=== PATIENT | male | born 1945 | race Caucasian/White ===

== ENCOUNTER 2022-11-30 15:35 | Outpatient (REF) | payer MEDICARE, BC, SELFPAY ==
[2022-11-30 19:35] LABS: Urine Cytology See Pathology rpt
== END 2022-11-30 15:36 | disposition home or self-care (01) ==
LOC: HO.LAB 15:35
PROVIDERS: Visit Provider Urology
DX: R31.29 Other microscopic hematuria (principal); N20.0 Calculus of kidney; Z13.9 Encounter for screening, unspecified
CPT/HCPCS: 88112; 99202

== ENCOUNTER 2022-11-30 15:35 | Outpatient (AMB) | payer MEDICARE, BC, SELFPAY ==
--- NOTE | 2022-11-30 15:47 | A.OFFVIS_ITS ---
Intake Intake Visit Reasons: Hematuria- 2nd opinion Intake Note: New Patient is present for hematuria 2nd opinion Antibiotic Allergy: NKDA Blood Thinner: None [facility]acy: [facility] Allergies No Known Allergies Allergy (Verified 11/30/22 15:50) HPI HPI Comments History of Present Illness Details Rayo is a pleasant male. He is a patient of Dr. Callaway. He seen for the following urologic conditions - nephrolithiasis Accompanied by her sister Recent episode in June Associated hematuria for 3 days which slowly resolved Discussion today regarding follow-up They would prefer to follow-up with PCP. Recommend repeat ultrasound in 6 months for stability He will call if has further symptoms Nephrolithiasis Episode June 2022 Prior episode approximately 2000 Discussed fluid intake Imaging - 07/22 renal ultrasound small stone right side, question 5 mm stone left side, prostate volume 50 cc [facility] Medical History (Updated 11/30/22 @ 16:16 by Brian Ramirez MD) Benign essential hypertension Chronic kidney disease, stage 3b Diabetes mellitus Gout History of kidney stones Hyperlipidemia Iritis OA (osteoarthritis) Sensorineural hearing loss Review of Systems Const Denies chills and Denies fever(s) Card Reports no additional complaints and Denies syncope Resp Denies cough GI Denies abdominal pain and Denies heartburn Reports as per HPI and Denies change in libido Neuro Denies syncope Psych Denies change in libido Endo Denies change in libido Physical Exam Const General: cooperative, healthy appearing, comfortable and no acute distress Orientation/consciousness: patient oriented x3 HEENT Face and sinus: Yes normal facial exam Mouth: moist mucous membranes Neck Neck: Yes normal visual inspection, Yes full ROM and Yes trachea midline Chest Chest palpation & inspection: normal inspection of the chest Resp Effort & Inspection: normal respiratory effort, able to speak in complete sentences and no respiratory distress GI Inspection: Yes normal to inspection Back/Spine/Pelvis Cervical Spine: normal cervical lordosis Thoracic/Lumbar Spine: thoracic and lumbar spine normal to inspection Skin General skin exam: no rashes or lesions noted Neuro General: patient oriented x3, gait normal, tone normal and moves all extremities Extrem General: Yes normal to inspection and Yes capillary refill normal Results AMB Urinalysis, Automated UA Leukoctes 0 Rudi/uL Last Edit by KRISHAN Bridges on 11/30/22 16:01 UA Nitrite Negative Last Edit by KRISHAN Bridges on 11/30/22 16:01 UA Urobilinogen 0.2 mg/dL Last Edit by Gloria Peña, RMA on 11/30/22 16:0 1 UA Protein 30 mg/dL Last Edit by Gloria Peña, RMA on 11/30/22 16:01 UA pH 5.5 Last Edit by Gloria Peña, RMA on 11/30/22 16:01 UA Blood 10 Azeem/uL Last Edit by Gloria Peña, RMA on 11/30/22 16:01 UA Specific [place] 1.030 Last Edit by Gloria Peña, RMA on 11/30/22 16: 01 UA Ketone Negative Last Edit by Gloria Peña, RMA on 11/30/22 16:01 UA Bilirubin 0 mg/dL Last Edit by Gloria Peña, RMA on 11/30/22 16:01 UA Glucose 0 mg/dL Last Edit by Gloria Peña, RMA on 11/30/22 16:01 Results Reviewed Results Reviewed: Laboratory Last Values Urine pH (Auto) 5.5 11/30/22 15:57 Specific [place] (Auto) 1.030 11/30/22 15:57 Urine Protein (Auto) 30 mg/dL 11/30/22 15:57 Glucose (UA)(Auto) 0 mg/dL 11/30/22 15:57 Urine Ketones (Auto) Negative 11/30/22 15:57 Urine Blood (Auto) 10 Azeem/uL 11/30/22 15:57 Urine Nitrite (Auto) Negative 11/30/22 15:57 Urine Bilirubin (Auto) 0 mg/dL 11/30/22 15:57 Urine Urobilinogen (Auto) 0.2 mg/dL 11/30/22 15:57 Leukocyte Esterase (Auto) 0 Rudi/uL 11/30/22 15:57 Assessment & Plan Assessment & Plan (1) Nephrolithiasis: Code(s): N20.0 - Calculus of kidney Plan Will follow-up with PCP Orders: Orders Urine Cytology Today R31.29 - Other microscopic hematuria AMB Urinalysis Automated Today Z13.9 - Encounter for screening, unspecified Patient Instructions: Imaging studies, laboratory and physical exam results were discussed and reviewed in detail. No major barriers to patient understanding were identified. An opportunity to ask questions regarding the treatment plan was provided. All questions were answered. The patient expressed understanding and agreement with the above treatment plan. The patient is aware they should contact our office by phone for worsening of their current condition or the appearance of new urologic symptoms. Compliance is encouraged with any medications and followup testing that is ordered. It is a privilege to participate in the urologic care of your patient. If you have any questions or concerns regarding treatment for the above conditions, or other urologic issues, please do not hesitate to contact me. The office telephone contact is [phone]. This note is constructed using voice recognition software. While every effort has been made to ensure accuracy curator horticultural museum errors may have been included. Yours sincerely, Dr Brian Ramirez MD, [facility] - Urology Providers of Expert, Compassionate Care for the Genitourinary System Coding Level of Care Code New Pt Level 3 (56169) Diagnoses Nephrolithiasis N20.0
== END 2022-11-30 16:13 | disposition home or self-care (01) ==
PROVIDERS: Visit Provider Urology
DX: N20.0 Calculus of kidney (principal)
CPT/HCPCS: 99203

== ENCOUNTER 2024-09-22 15:09 | Inpatient (IN) | payer MEDICARE, BC, SELFPAY ==
[2024-09-22] VITALS (10 sets, daily range): BP systolic 128–176; BP diastolic 64–96; PULSE 109–136; RESP 16–23; TEMP 36.6–37.4; O2SAT 94–99; BMI 34.6
--- NOTE | ~2024-09-22 | XR_ITS ---
CLINICAL HISTORY: pain, recent tap 4 view left knee Comparison: None Findings: Bones intact. No dislocations. Severe degenerative changes of the knee with joint space narrowing of the medial compartment and osteophytes. Large joint effusion. No radiopaque foreign body. IMPRESSION: No radiographic evidence of acute fracture. Severe degenerative change of the knee and large joint effusion. This document has been electronically signed by: Az Berg MD on 09/22/2024 17:36:24
--- NOTE | ~2024-09-22 | CT_ITS ---
CLINICAL HISTORY: fall, injury CT cervical spine without contrast Comparison: None Findings: Normal vertebral body alignment. Multilevel degenerative change. No acute fractures or dislocations. No acute findings on limited view of the intracranial contents. No cervical fluid collections or masses. Lung apices are clear. IMPRESSION: No acute findings. This document has been electronically signed by: Az Berg MD on 09/22/2024 17:58:56
--- NOTE | ~2024-09-22 | CT_ITS ---
CLINICAL HISTORY: fall, injury CT Brain without contrast Comparison: None FINDINGS: Cortical sulci: There is diffuse prominence of the cortical sulci compatible with age-related atrophy. Ventricles: Normal for age Brain parenchyma: There is patchy lucency throughout the deep white matter indicating chronic microvascular leukomalacia. Extra axial spaces: Normal Posterior Fossa: Normal Extracranial soft tissues: Normal Additional abnormality: None IMPRESSION: Age-related atrophy with chronic microvascular leukomalacia. No hemorrhage, mass effect, or acute findings identified. This document has been electronically signed by: Az Berg MD on 09/22/2024 18:03:56
--- NOTE | ~2024-09-22 | XR_ITS ---
CLINICAL HISTORY: weakness fall 1 view chest x-ray Comparison: None Findings: The lungs are clear. Heart size is normal. No acute fracture. IMPRESSION: 1. No acute findings. This document has been electronically signed by: Az Berg MD on 09/22/2024 17:39:16
--- NOTE | 2024-09-22 15:31 | ED_ITS ---
HPI - General Adult General Chief complaint: Extremity Injury, Lower Stated complaint: L knee pain, ?sepsis Time Seen by Provider: 09/22/24 15:31 Source: patient and EMS Mode of arrival: EMS Limitations: no limitations History of Present Illness ED Provider: Abbey Kenney PA-C HPI narrative: Patient is a 78 year old assigned male at with a history of atrial fib on Eliquis, DM, arthritis, gout, chronic renal disease, HTN, and latent TB presenting to the emergency department today with left knee pain, fall, and weakness. Patient states that 4 days ago his knee doctor drained 40ml from his left knee for what they suspected was a gout flare. Patient states that today, his legs gave out and he fell - causing him to lay on the floor for hours. Patient states that he cannot bend his left knee secondary to pain. Patient denies any dizziness, lightheadedness, abdominal pain, nausea, vomiting, fever, chills, blurry vision, double vision, loss of vision, chest pain, difficulty breathing, shortness of breath, back pain, night sweats, pain with urination, increased urinary frequency, increased urinary urgency, blood in his urine or stool, syncope or a near syncopal episode, bowel incontinence, bladder incontinence, or any other complaints at this time. Relieving factors: none Exacerbating factors: none Associated symptoms: weakness Treatments prior to arrival: none Related Data Home Medications ?Medication ?Instructions ?Recorded ?Confirmed aspirin 81 mg tablet,delayed 81 mg PO DAILY 11/30/22 release (Adult Aspirin Regimen) fexofenadine 180 mg tablet 180 mg PO DAILY 11/30/22 lifitegrast 5 % eye drops in a 1 drp ophthalmic (eye) BID 11/30/22 dropperette (Xiidra) losartan 100 mg tablet 100 mg PO DAILY 11/30/22 metformin 500 mg tablet 500 mg PO DAILY 11/30/22 potassium citrate 99 mg capsule mg PO 11/30/22 simvastatin 20 mg tablet 20 mg PO DAILY 11/30/22 Allergies Allergy/AdvReac Type Severity Reaction Status Date / Time No Known Allergies Allergy Verified 09/22/24 15:20 Review of Systems 2 Constitutional: Constitutional: Reports no additional constitutional complaints, Denies chills, Denies fever(s), Denies night sweats and Reports weakness Eyes: Eyes: Reports no additional eye complaints, Denies blurry vision, Denies change in vision, Denies diplopia, Denies eye discharge, Denies loss of vision and Denies eye pain ENT: Denies dizziness Cardiovascular: Cardiovascular: Reports no additional cardiovascular complaints, Denies chest pain, Denies lightheadedness, Denies Loss of Consciousness and Denies dyspnea Respiratory: Respiratory: Reports no additional respiratory complaints and Denies dyspnea Gastrointestinal: Gastrointestinal: Reports no additional gastrointestinal complaints, Denies abdominal pain, Denies melena, Denies hematochezia, Denies change in bowel habits and Denies change in stool character Genitourinary: Genitourinary: Reports no additional male genitourinary complaints, Denies hematuria, Denies oliguria, Denies difficulty urinating, Denies dysuria, Denies urinary frequency, Denies urinary hesitancy, Denies urinary incontinence and Denies urinary urgency Musculoskeletal: Musculoskeletal: Reports no additional musculoskeletal complaints, Denies numbness and Denies tingling Comments: left knee swelling left knee pain Neurologic: Denies dizziness, Denies loss of vision, Denies numbness, Denies tingling and Reports weakness Psychiatric: Psychiatric: Reports no additional psychiatric complaints Endocrine: Endocrine: Reports no additional endocrine complaints Hematologic/Lymphatic: Hematologic/Lymphatic: Reports no additional hematologic/lymphatic complaints Allergic/Immunologic: Allergic/Immunologic: Reports no additional allergic/immunologic complaints PMF Past Medical History Attestation statement: The following information was validated with the patient. Source: old records reviewed and nursing notes reviewed Medical History Hyperlipidemia Gout History of kidney stones Diabetes mellitus Benign essential hypertension OA (osteoarthritis) Iritis Chronic kidney disease, stage 3b Sensorineural hearing loss Social History Social History Patient Tobacco Use Status: Never used Tobacco Smoked in Last 30 Days: No Use of substances other than those prescribed or required for medical reasons: No Advance Directives: No Advance Directives Information Provided: No Do you have a plan to hurt others: No Plan Nutrition Risks: No Nutritional Risk Physical Exam ED Vital Signs: Vital Signs - 24 hr 09/22/24 15:19 09/22/24 15:42 09/22/24 16:12 Temperature 97.9 F 98.3 F Pulse Rate 132 H 132 H 121 H Respiratory Rate 20 16 Blood Pressure 158/85 H 158/85 H 138/72 Pulse Oximetry 98 97 Oxygen Delivery Method Room Air Room Air 09/22/24 17:05 09/22/24 17:38 09/22/24 17:53 Temperature 98.4 F Pulse Rate 122 H 113 H 110 H Respiratory Rate 18 23 H 23 H Blood Pressure 140/65 H 133/67 130/64 Pulse Oximetry 98 94 96 Oxygen Delivery Method Room Air Room Air Room Air 09/22/24 18:10 Temperature Pulse Rate 109 H Respiratory Rate 18 Blood Pressure 144/72 H Pulse Oximetry 99 Oxygen Delivery Method Room Air BMI result Body Mass Index 34.6 Const General: cooperative, no acute distress, alert and awake Nutritional Appearance: well nourished Orientation/consciousness: patient oriented x3 HENMT Head: Yes normal to inspection and Yes atraumatic Ears: hearing grossly normal bilaterally and external ears normal General nose exam: Normal external nose present, no nasal discharge noted and no epistaxis Face and sinus: Yes normal facial exam, No abrasion and No laceration Mouth: Normal oral and palatal mucosa present, no drooling and no muffled voice Eyes General: appearance normal, both eyes and all related structures Periorbital: periorbital findings normal Eyelids: Yes eyelids normal Conjunctivae: conjunctivae normal Pupils: Equal, round and reactive pupils present EOM: EOMs intact bilaterally Neck Neck: Yes normal visual inspection, Yes full ROM and Yes no lymphadenopathy Resp Effort & Inspection: normal respiratory effort and able to speak in complete sentences Cardio Rate: tachycardic Rhythm: abnormal rhythm irregularly irregular Neuro General: patient oriented x3, moves all extremities and CN's II-XI intact bilaterally Cranial nerves: Yes Equal, round and reactive pupils present Cognition (Neuro): normal cognition Extrem Other: significantly swollen left knee pain with ROM of the left knee left knee warmth General: Yes capillary refill normal Psych Appearance: grossly normal Mental Status: mental status grossly normal Affect: normal affect Attitude: cooperative Thought process: Normal thought process present Thought content: Normal thought content present Insight: Good insight present (Psych) Medications Administered Generic Name Dose Route Start Last Admin Trade Name Freq PRN Reason Stop Dose Admin Prednisone 40 mg 09/22/24 18:45 09/22/24 18:59 Prednisone 20 Mg Tablet PO 40 mg DAILY YONNY Administration Discontinued Medications Generic Name Dose Route Start Last Admin Trade Name Freq PRN Reason Stop Dose Admin Diltiazem HCl 180 mg 05/24/25 15:37 09/22/24 15:42 Diltiazem Hcl 60 Mg Tablet PO 09/22/24 15:38 180 mg ONCE ONE Administration Protocol Vancomycin HCl 1,000 mg/ 270 mls @ 270 mls/hr 09/22/24 15:31 09/22/24 17:52 Sodium Chloride IV 09/22/24 16:30 Infused POSTOP ONE Infusion Piperacillin Sod/Tazobactam 50 mls @ 100 mls/hr 09/22/24 15:31 09/22/24 16:40 Sod 3.375 gm/ Sodium Chloride IV 09/22/24 16:00 Infused ONCE ONE Infusion Medical Decision Making Medical Decision Making MDM Narrative: Patient is a 78 year old assigned male at with a history of atrial fib on Eliquis, DM, arthritis, gout, chronic renal disease, HTN, and latent TB presenting to the emergency department today with left knee pain, fall, and weakness. Patient's physical exam was as noted in the physical exam portion of this note. Patient's blood work showed WBC 16.8 with a left shift of 89.1, ESR 83, CRP 32.93, total CK 379. Patient's urine showed no evidence of infection. Patient's EKG showed sinus tachycardia. Patient's left x-ray showed OA and large joint effusion. Patient's chest x-ray showed no acute process. Patient's CT head and c-spine showed no acute process. I was suspicious of a septic left knee joint at 1531. Patient was given IV Zosyn and Vancomycin. I spoke with the orthopedic team who stated this could still be a gout flare with a hemarthrosis rather than a septic joint and at this time they did not recommended tapping the joint. I spoke with the medicine team who agreed to admission. I explained my physical exam findings as well as all test results to the patient. I answered all questions asked by the patient. Patient verbalized agreement and understanding with this treatment plan and admission. Differential Diagnosis Differential Diagnoses: The differential diagnosis associated with the presentation includes Fall Weakness Gout flare Septic left knee Admission/Observation Consideration of admission/observation: Escalation of care including admission/observation considered Patient admitted as noted in the MDM Rationale portion of this note. Consult Healthcare Provider Management of the patient was discussed with: Hospitalist (spoke with the hospitalist team as noted in the MDM Rationale portion of this note. ) and Underwriting Specialist (spoke with the orthopedic team as noted in the MDM Rationale portion of this note. ) Lab Data [facility] Lab Attestation statement: I reviewed the patient's lab results. My interpretation of these results are in the MDM Rationale portion of this note. 09/22/24 15:57 09/22/24 15:57 Labs: Lab Results 09/22/24 Range/Units 15:57 WBC 16.8 H (4.8-10.8) X10*3/uL RBC 4.41 L (4.60-5.80) X10*6/uL Hgb 14.1 (14.0-18.0) g/dl Hct 40.1 L (42.0-52.0) % MCV 90.9 (80.0-98.0) fL MCH 32.0 (27.0-33.0) pg MCHC 35.2 (31.0-36.0) g/dl RDW 13.3 (11.0-16.0) % Plt Count 352 (160-400) X10*3/uL MPV 10.3 (9.4-12.4) fL Immature Gran % (Auto) 0.5 H (0.0-0.4) % Neut % (Auto) 89.1 H (45-73) % Lymph % (Auto) 3.5 L (20-40) % [place] % (Auto) 6.7 (2-11) % Eos % (Auto) 0.0 (0-4) % Baso % (Auto) 0.2 (0-2) % Lymph # (Auto) 0.6 L (1.2-4.9) X10*3/uL [place] # (Auto) 1.1 (0.1-1.2) X10*3/uL Eos # (Auto) 0.0 (0.0-0.4) X10*3/uL Baso # (Auto) 0.0 (0.0-0.2) X10*3/uL Abs Immat Gran (auto) 0.08 H (0.00-0.03) X10*3/uL Absolute Neuts (auto) 15.0 H (2.0-8.3) x10*3/uL Absolute Nucleated RBC 0.000 (0.0-0.012) X10*3/uL Nucleated RBC % (auto) 0.0 (0.0-0.2) /100WBC ESR 83 H (0-15) MM/HR PT 18.8 H (10.9-12.4) SEC INR 1.6 H (0.9-1.1) Sodium 136 (135-145) mmol/L Potassium 4.5 (3.3-5.1) mmol/L Chloride 99 (96-108) mmol/L Carbon Dioxide 24 (22-29) mmol/L Anion Gap 18 (12-20) BUN 30 H (9-16) mg/dL Creatinine 1.33 (0.5-1.4) mg/dL Estim Creat Clear Calc 58.5 Estimated GFR 52 Random Glucose 208 H (60-115) mg/dL Lactic Acid 1.8 (0.5-2.0) mmol/L Uric Acid 4.2 (3.4-7.0) mg/dL Calcium 10.2 (8.4-10.2) mg/dL Magnesium 2.0 (1.6-2.6) mg/dL Total Bilirubin 1.7 H (0.0-1.0) mg/dL AST 50 H (5-37) U/L ALT 41 H (0-40) U/L Alkaline Phosphatase 96 (39-117) U/L Total Creatine Kinase 379 H (38-174) U/L C-Reactive Protein 32.93 H (< or = 0.50) mg/dL Total Protein 8.0 (6.5-8.0) g/dL Albumin 4.1 (3.5-5.0) g/dL Influenza Type A (PCR) NEGATIVE (Negative) Influenza Type B (PCR) NEGATIVE (Negative) RSV RNA Qual (PCR) NEGATIVE (Negative) SARS-CoV-2 RNA (RT-PCR) NEGATIVE (Negative) Independent Interpretation I performed an independent interpretation of an: EKG, Plain X-Ray (chest and left knee) and CT Scan (head and c-spine) Interpretation: My interpretation is in agreement with the radiologist's impression of these imaging studies. L Report Number: [id number]: Total DLP = 1466.95 mGy-cm CLINICAL HISTORY: fall, injury CT Brain without contrast Comparison: None FINDINGS: Cortical sulci: There is diffuse prominence of the cortical sulci compatible with age-related atrophy. Ventricles: Normal for age Brain parenchyma: There is patchy lucency throughout the deep white matter indicating chronic microvascular leukomalacia. Extra axial spaces: Normal Posterior Fossa: Normal Extracranial soft tissues: Normal Additional abnormality: None IMPRESSION: Age-related atrophy with chronic microvascular leukomalacia. No hemorrhage, mass effect, or acute findings identified. This document has been electronically signed by: Az Berg MD on 09/22/2024 18:03:56 Dictated By: Az Berg MD Signed By: Electronically signed by Az Berg MD 09/22/24 1804 Report Number: [id number]: Total DLP = 494.23 mGy-cm CLINICAL HISTORY: fall, injury CT cervical spine without contrast Comparison: None Findings: Normal vertebral body alignment. Multilevel degenerative change. No acute fractures or dislocations. No acute findings on limited view of the intracranial contents. No cervical fluid collections or masses. Lung apices are clear. IMPRESSION: No acute findings. This document has been electronically signed by: Az Berg MD on 09/22/2024 17:58:56 Dictated By: Az Berg MD Signed By: Electronically signed by Az Berg MD 09/22/24 1759 CLINICAL HISTORY: weakness fall 1 view chest x-ray Comparison: None Findings: The lungs are clear. Heart size is normal. No acute fracture. IMPRESSION: 1. No acute findings. This document has been electronically signed by: Az Berg MD on 09/22/2024 17:39:16 Dictated By: Az Berg MD Signed By: Electronically signed by Az eBrg MD 09/22/24 1740 CLINICAL HISTORY: pain, recent tap 4 view left knee Comparison: None Findings: Bones intact. No dislocations. Severe degenerative changes of the knee with joint space narrowing of the medial compartment and osteophytes. Large joint effusion. No radiopaque foreign body. IMPRESSION: No radiographic evidence of acute fracture. Severe degenerative change of the knee and large joint effusion. This document has been electronically signed by: Az Berg MD on 09/22/2024 17:36:24 Dictated By: Az Berg MD Signed By: Electronically signed by Az Berg MD 09/22/24 1737 I independently interpreted this EKG and am in agreement with the below findings: Vent. Rate: 131 BPM Atrial Rate: 131 BPM P-R Int: 160 ms QRS Dur: 74 ms QT Int: 278 ms P-R-T Axes: -20 -2 3 degrees QTcB Inc: 410 ms Sinus tachycardia Otherwise normal ECG No previous ECGs available DD/ [id number] Radiology Impression Discussion of test interpretation with radiology: I have reviewed the radiologist's reading. Independent Historian Clinical information obtained from an independent historian. History obtained from or confirmed by: EMS (EMS provided additional history and confirmed the history provided by the patient.) Chronic Conditions Patient?s care impacted by: Diabetes Critical Care Time Critical Care Time Critical Care Time: Yes Total Critical Care Time: 46 Attestation: I spent 46 minutes of Critical Care Time with this patient. This does not include time spent on separately reported billable procedures. Discharge Plan Discharge Clinical Impression: Arthritis, septic, knee, Fall Patient Disposition: Admitted As Inpatient
--- NOTE | 2024-09-22 15:31 | ECG_ITS ---
Test Reason : fall Blood Pressure : */* mmHG Vent. Rate : 131 BPM Atrial Rate : 131 BPM P-R Int : 160 ms QRS Dur : 74 ms QT Int : 278 ms P-R-T Axes : -20 -2 3 degrees QTcB Int : 410 ms Sinus tachycardia Otherwise normal ECG No previous ECGs available Referred By: Abbey Kenney Electronically Signed By: Axel Carey
[2024-09-22] MEDS: dilTIAZem HCL 60 MG TABLET 180 MG PO (15:42)
--- OUTSIDE RECORDS SUMMARY | 2024-09-22 15:43 | XMS_ITS | Encounter Summary ---
Author Name [facility] [place] [facility] [place] Address [address] [place] [id number] Care Team Providers Care Web Services Professional Name Role Phone [place] BALBUENA Primary Care Provider Unavailabl e Insurance Providers: All historical and current Section Date Range: From patient's date of to the date document was created. This section includes the names of all active insurance providers for the patient. Insurance Provider Type of Coverage Plan Name Start of Policy Coverage End of Policy Coverage Group Number Member ID Insurance Provider's Telephone Number Policy Burton's Name Patient's Relationship to Policy Burton [facility] MEDICARE SUPPLEMEN CARMELLA MEDEX BRON E May 02, 2016 [id number] TERI TROTTER PATIENT [facility] MEDICARE SUPPLEMEN CARMELLA MEDEX BRONZ E May 02, 2016 [id number] EYALTERI BRUNER PATIENT MEDICARE (WNR) MEDICARE (M) PART A Oct 30, 2012 PART A [id number] GAELZULYTERI BRUNER PATIENT MEDICARE (WNR) MEDICARE (M) PART B Oct 30, 2012 PART B [id number] EYALTERI BRUNER PATIENT MEDICARE (WNR) MEDICARE (M) PART A Oct 30, 2012 PART A [id number] TERI TROTTER PATIENT MEDICARE (WNR) MEDICARE (M) PART B Oct 30, 2012 PART B [id number] [phone] TERI TROTTER PATIENT Selected Encounter This section includes the information on record at [place] for the Encounter. Date/Time Encounter Type Encounter Description Reason Provider Source Jul 17, 2024 04:29 PM NQHP OL DIG ASSMT&MGMT 5-10 CLINICAL PHARMACY ICD-10-CM I12.9 Hypertensive chronic kidney disease w stg 1-4/unsp [facility] tod ALISTAIR PEDROZA IHE Encounter Template Text not used by [place] Assessments - Encounter Diagnoses This section includes the primary and secondary diagnoses documented for the Encounter. Date/Time Primary/Secondary Diagnosis Diagnosis Name Provider Source Jul 17, 2024 04:34 PM PRIMARY Hypertensive chronic kidney disease w stg 1-4/unsp [facility] tod [facility] Plan of Treatment: Future Appointments (+ 6 months) and Future Tests (+/- 45 days) The Plan of Treatment section includes future care activities for the patient from all [place] treatmentfacilities. This section includes future appointments and future orders which are active, pending or scheduled. Future Appointments This section includes appointments that were scheduled to occur 6 months from the date of the Encounter, up to a maximum of 20 appointments. The data comes from all [place] treatment facilities. Appointment Date/Time Appointment Type Appointme nt Facility Name Jul 20, 2024 09:30 AM AMBULATORY - MEDICINE [facility] [place] [facility] Aug 08, 2024 10:00 AM AMBULATORY - REHAB MEDICIN E [place] [facility] [place] [facility] Aug 22, 2024 09:00 AM AMBULATORY - REHAB MEDICIN E [place] [facility] [place] [facility] September 07, 2024 09:30 AM AMBULATORY - MEDICINE [facility] [place] [facility] September 07, 2024 10:30 AM AMBULATORY - MEDICINE [facility] [place] [place] [facility] Dec 18, 2024 10:00 AM AMBULATORY - MEDICINE [facility] [place] [facility] Dec 21, 2024 09:30 AM AMBULATORY - MEDICINE [facility] [place] [facility] Social History: Smoking Status (Most current) and Tobacco Use (All prior to encounter date) This section includes the most current, and the historical, smoking and tobacco- related health factors from the [place] facility where the Encounter took place. Current Smoking Status This section includes the most current smoking, or tobacco-related health factor, from the [place] facility where the Encounter took place. Date/Time Current Smoking Status Comment Facil ity September 21, 2023 09:00 AM [facility]ACCO [facility] Tobacco Use History This section includes a history of the smoking, or tobacco-related health factors, that were collected on or before the date of the Encounter. The data comes from the [place] facility where the Encounter took place. Date/Time Smoking Status/Tobacco Use Comment F acility September 21, 2023 09:00 AM VA-TOBACCO QUIT 15 YRS OR MORE [facility] September 20, 2022 09:30 AM VA-TOBACCO FORMER USER [place] [facility] [place] [facility] September 20, 2022 09:30 AM VA-TOBACCO QUIT 15 YRS OR MORE [facility] [facility] September 18, 2021 11:00 AM VA-TOBACCO FORMER USER [facility] [place] [facility] September 18, 2021 11:00 AM VA-TOBACCO QUIT 15 YRS OR MORE [facility] [place] [facility] Feb 08, 2020 09:00 AM VA-TOBACCO FORMER USER [facility] [place] [facility] Feb 08, 2020 09:00 AM VA-TOBACCO QUIT 15 YRS OR MORE [facility] Advance Directives: All historical and current Section Date Range: From patient's date of to the date document was created. This section includes ALL of a patient's completed or amended [place] Advance and Rescinded Directives. The entries below indicate that a directive exists for the patient, but an actual copy is not included with this document. The data comes from all [place] facilities. Date Advance Directives Provider Source Feb 01, 2018 ADVANCE DIRECTIVE BIRGIT VIVEROS [facility] Encounter Notes: All associated encounter notes This section contains the clinical notes associated to the Encounter. Date/Time Encounter Note(s) Provider Source Jul 19, 2024 09:14 AM ADDENDUM: LOCAL TITLE: Addendum STANDARD TITLE: ADDENDUM DATE OF NOTE: JUL 19, 2024@09:14:20 ENTRY DATE: JUL 19, 2024@09:14:21 AUTHOR: ALISTAIR PEDROZA COSIGNER: URGENCY: STATUS: COMPLETED Please schedule the following for DM medication management and glucometer teaching [facility] PACT 3 07/20/24 @0930 X 60 MINS /es/ ALISTAIR PEDROZA PHARMD,BCPS CLINICAL PHARMACY PRACTITIONER Signed: 07/19/2024 09:15 Receipt Acknowledged By: 07/20/2024 08:08 /es/ YURI RIOS [employer] Consultant --- Original Document --- 07/17/24 CLINICAL PHARMACIST DRUG REGIMEN REVIEW: Patient was identified through population health review as having Type 2 DM and CKD and not on SGLT2i therapy. Does patient have any contraindications to SGLT2i use (any of the below)? -severe renal impairment (eGFR<20 for empagliflozin) -end stage renal disease or receiving hemodialysis -Type 1 DM - or nursing -history of frequent genital mycotic infections or UTIs or risk factors for UTIs (indwelling catheters, need for self-catheterization, known history of increased post-void residual, etc) -hypersensitivity to empagliflozin or any of its ingredients CREATININE eGFR CKD-EPI 202003/09/24 12:08 61 SERUM CREATININE 03/09/24 12:08 1.22 1.18 mg/dL .5 - 1.4 Mar 09, 2024@12:08 SERUM eGFR(CKD-EPI 2020): 61 mL/min BLOOD Mar 09 Reference 2023 12:08 Units Ranges HgbA1c Hgb-A1c % 4.4 - 6.1 Hgb-A1c % 3 - 6.1 HGB A1C % 4.4 - 6.4 Hgb-A1C % 3.4 - 6.1 HGB-A1c 6.9 H % 4 - 5.6 A/P: Last A1c at goal, although has CKD and max dose metformin. May benefit from metformin reduction and add empagliflozin for SGLT2i benefits w/ CKD. No microalbuminuria during last labs. CPP could schedule follow up in regards to DM and continue to monitor renal function and adjust meds accordingly. Time spent: 5 mins /rohini PEDROZA PHARMD, BCPS CLINICAL PHARMACY PRACTITIONER Signed: 07/17/2024 16:34 Receipt Acknowledged By: 07/18/2024 12:48 /AMBER Dominguez Nurse Practitioner 07/18/2024 ADDENDUM STATUS: COMPLETED Sounds great would love the help! /AMBER Dominguez Nurse Practitioner Signed: 07/18/2024 12:49 Receipt Acknowledged By: 07/19/2024 08:59 /rohini PEDROZA PHARMD, BCPS CLINICAL PHARMACY PRACTITIONER ALISTAIR PEDROZA [place] [facility] [place] [facility] Jul 18, 2024 12:48 PM ADDENDUM: LOCAL TITLE: Addendum STANDARD TITLE: ADDENDUM DATE OF NOTE: JUL 18, 2024@12:48:57 ENTRY DATE: JUL 18, 2024@12:48:58 AUTHOR: INDIA BALBUENA EXP COSIGNER: URGENCY: STATUS: COMPLETED Sounds great would love the help! /AMBER Dominguez Nurse Practitioner Signed: 07/18/2024 12:49 Receipt Acknowledged By: 07/19/2024 08:59 /rohini PEDROZA [facility]MD[facility]ITAL[facility] CLINICAL PHARMACY PRACTITIONER --- Original Document --- 07/17/24 CLINICAL PHARMACIST DRUG REGIMEN REVIEW: Patient was identified through population health review as having Type 2 DM and CKD and not on SGLT2i therapy. Does patient have any contraindications to SGLT2i use (any of the below)? -severe renal impairment (eGFR<20 for empagliflozin) -end stage renal disease or receiving hemodialysis -Type 1 DM - or nursing -history of frequent genital mycotic infections or UTIs or risk factors for UTIs (indwelling catheters, need for self-catheterization, known history of increased post-void residual, etc) -hypersensitivity to empagliflozin or any of its ingredients CREATININE eGFR CKD-EPI 202003/09/24 12:08 61 SERUM CREATININE 03/09/24 12:08 1.22 1.18 mg/dL .5 - 1.4 Mar 09, 2024@12:08 SERUM eGFR(CKD-EPI 2020): 61 mL/min BLOOD Mar 09 Reference 2023 12:08 Units Ranges HgbA1c Hgb-A1c % 4.4 - 6.1 Hgb-A1c % 3 - 6.1 HGB A1C % 4.4 - 6.4 Hgb-A1C % 3.4 - 6.1 HGB-A1c 6.9 H % 4 - 5.6 A/P: Last A1c at goal, although has CKD and max dose metformin. May benefit from metformin reduction and add empagliflozin for SGLT2i benefits w/ CKD. No microalbuminuria during last labs. CPP could schedule follow up in regards to DM and continue to monitor renal function and adjust meds accordingly. Time spent: 5 mins /michell/ HAIR SANCHEZD,BCPS CLINICAL PHARMACY PRACTITIONER Signed: 07/17/2024 16:34 Receipt Acknowledged By: 07/18/2024 12:48 /michell/ AMBER MARROQUIN Nurse Practitioner INIDA BALBUENA [facility] Jul 17, 2024 04:29 PM PHARMACY MEDICATION MGT NOTE: LOCAL TITLE: CLINICAL PHARMACIST DRUG REGIMEN REVIEW STANDARD TITLE: PHARMACY MEDICATION MGT NOTE DATE OF NOTE: JUL 17, 2024@16:29 ENTRY DATE: JUL 17, 2024@16:29:17 AUTHOR: ALISTAIR PEDROZA COSIGNER: URGENCY: STATUS: COMPLETED CLINICAL PHARMACIST DRUG REGIMEN REVIEW Has ADDENDA Patient was identified through population health review as having Type 2 DM and CKD and not on SGLT2i therapy. Does patient have any contraindications to SGLT2i use (any of the below)? -severe renal impairment (eGFR<20 for empagliflozin) -end stage renal disease or receiving hemodialysis -Type 1 DM - or nursing -history of frequent genital mycotic infections or UTIs or risk factors for UTIs (indwelling catheters, need for self-catheterization, known history of increased post-void residual, etc) -hypersensitivity to empagliflozin or any of its ingredients CREATININE eGFR CKD-EPI 202003/09/24 12:08 61 SERUM CREATININE 03/09/24 12:08 1.22 1.18 mg/dL .5 - 1.4 Mar 09, 2024@12:08 SERUM eGFR(CKD-EPI 2020): 61 mL/min BLOOD Mar 09 Reference 2023 12:08 Units Ranges HgbA1c Hgb-A1c % 4.4 - 6.1 Hgb-A1c % 3 - 6.1 HGB A1C % 4.4 - 6.4 Hgb-A1C % 3.4 - 6.1 HGB-A1c 6.9 H % 4 - 5.6 A/P: Last A1c at goal, although has CKD and max dose metformin. May benefit from metformin reduction and add empagliflozin for SGLT2i benefits w/ CKD. No microalbuminuria during last labs. CPP could schedule follow up in regards to DM and continue to monitor renal function and adjust meds accordingly. Time spent: 5 mins /michell/ ALISTAIR PEDROZA, PHARMD,BCPS CLINICAL PHARMACY PRACTITIONER Signed: 07/17/2024 16:34 Receipt Acknowledged By: 07/18/2024 12:48 /michell/ AMBER MARROQUIN Nurse Practitioner 07/18/2024 ADDENDUM STATUS: COMPLETED Sounds great would love the help! /AMBER Dominguez Nurse Practitioner Signed: 07/18/2024 12:49 Receipt Acknowledged By: 07/19/2024 08:59 /michell/ ALISTAIR PEDROZA PHARMD,MARCO CLINICAL PHARMACY PRACTITIONER 07/19/2024 ADDENDUM STATUS: COMPLETED Please schedule the following for DM medication management and glucometer teaching [facility] PACT 3 07/20/24 @0930 X 60 MINS /michell/ ALISTAIR PEDROZA PHARMD,[facility] CLINICAL PHARMACY PRACTITIONER Signed: 07/19/2024 09:15 Receipt Acknowledged By: * AWAITING SIGNATURE * YURI RIOS JODI A [facility]
[2024-09-22] MEDS: Piperacillin Sodium/Tazobactam 3.375 GM in 0.9 % Sodium Chloride 50 ML IV (15:58)
[2024-09-22 16:09] LABS: MANUAL DIFF FLAG NO
[2024-09-22 16:14] LABS: Basophils Percent Auto 0.2 % (0-2); Hematocrit 40.1 % (42.0-52.0); Hemoglobin 14.1 g/dl (14.0-18.0); Imm Gran Abs Auto 0.08 X10*3/uL (0.00-0.03); Imm Gran Pct Auto 0.5 % (0.0-0.4); Lymphocytes Absolute Auto 0.6 X10*3/uL (1.2-4.9); Lymphocytes Percent Auto 3.5 % (20-40); Mean Corpuscular HGB Conc 35.2 g/dl (31.0-36.0); Mean Corpuscular Volume 90.9 fL (80.0-98.0); Mean Platelet Volume 10.3 fL (9.4-12.4); Monocytes Absolute Auto 1.1 X10*3/uL (0.1-1.2); Monocytes Percent Auto 6.7 % (2-11); Neutrophils Percent Auto 89.1 % (45-73); Platelet Count 352 X10*3/uL (160-400); Red Blood Count 4.41 X10*6/uL (4.60-5.80); Red Cell Distribution Width 13.3 % (11.0-16.0); White Blood Count 16.8 X10*3/uL (4.8-10.8)
[2024-09-22 16:31] LABS: INTERNATIONAL NORM RATIO 1.6 (0.9-1.1); Prothrombin Time 18.8 SEC (10.9-12.4)
[2024-09-22 16:33] LABS: Lactic Acid 1.8 mmol/L (0.5-2.0)
[2024-09-22 16:43] LABS: Alanine Aminotransferase 41 U/L (0-40); Albumin Level 4.1 g/dL (3.5-5.0); Alkaline Phosphatase 96 U/L (39-117); Anion Gap 18 (12-20); Aspartate Amino Transferase 50 U/L (5-37); Bilirubin Total 1.7 mg/dL (0.0-1.0); Blood Urea Nitrogen 30 mg/dL (9-16); C Reactive Protein 32.93 mg/dL (< or = 0.50); Calcium 10.2 mg/dL (8.4-10.2); Carbon Dioxide 24 mmol/L (22-29); Chloride 99 mmol/L (96-108); Creatinine Clr Calc Pharmacy 58.5; Estimated Glomerular Filt Rate 52; Glucose Random 208 mg/dL (60-115); Potassium 4.5 mmol/L (3.3-5.1); Sodium 136 mmol/L (135-145); Uric Acid 4.2 mg/dL (3.4-7.0)
[2024-09-22] MEDS: vancomycin HCL 1,000 MG in 0.9 % Sodium Chloride 250 ML 270 MG IV (16:50)
[2024-09-22 16:54] LABS: Influenza A PCR NEGATIVE (Negative); Influenza B PCR NEGATIVE (Negative); Resp Syncy Virus RNA Qual PCR NEGATIVE (Negative); SARS COV2 PCR INHOUSE NEGATIVE (Negative)
[2024-09-22 17:00] LABS: Erythrocyte Sedimentation Rate 83 MM/HR (0-15)
--- NOTE | 2024-09-22 18:41 | P.HPHOSP_ITS ---
History of Present Illness Date of Service: 09/22/24 Chief Complaint: left knee pain and swelling, fall 78M PMH DM, gout, obeisty, pafib on eliquis, CKD III, latent TB, HTN, presented with fall and left knee pain and swelling. Patient states that pain and swelling in his left knee began about 10 days prior to presentation. He took [id number] anti-inflammatories. Four days prior to presentation saw his doctor performed arthrocentesis and said it was a gout flare. On day of presentation patient was walking in his legs gave out and he lay on the floor for several hours. Denies any fever, chills, abdominal pain. In ED, x-ray of the knee showed no fracture, severe degenerative changes with large joint effusion. Lab significant for leukocytosis and elevated CRP and ESR. Review of Systems 2 Review of Systems: Yes all other systems are reviewed and are negative [facility] Medical History Hyperlipidemia Gout History of kidney stones Diabetes mellitus Benign essential hypertension OA (osteoarthritis) Iritis Chronic kidney disease, stage 3b Sensorineural hearing loss Social History Smoked in Last 30 Days: No Use of substances other than those prescribed or required for medical reasons: No Advance Directives: No Advance Directives Information Provided: No Do you have a plan to hurt others: No Plan Meds Allergies Allergy/AdvReac Type Severity Reaction Status Date / Time No Known Allergies Allergy Verified 09/22/24 15:20 Active Medications: Current Medications Acetaminophen (Acetaminophen 325 Mg Tablet) 650 mg PO Q6H PRN PRN Reason: Pain, Mild 1-3,fever,headache Calcium Carbonate (Calcium Carbonate 750 Mg Tab.Chew) 750 mg PO Q4H PRN PRN Reason: Heartburn Dextrose (Dextrose 50 % 25 Gm/50 Ml Syringe) 25 gm IVPUSH Q15M PRN; Protocol PRN Reason: per Hypoglycemia Standing Ord. Glucose (Glucose Gel 15 Gm Gel..Gram.) 15 gm PO Q15M PRN; Protocol PRN Reason: per Hypoglycemia Standing Ord. Vancomycin HCl 750 mg/ Sodium (Chloride) 265 mls @ 265 mls/hr IV Q12H [facility] Insulin Human Lispro (Insulin Lispro 100 Unit/Ml 3 Ml Vial) 0 unit SUBCUT QIDACHS [facility]; Protocol Magnesium Hydroxide (Milk Of Magnesia 30 Ml Oral.Susp) 30 ml PO DAILY PRN PRN Reason: Constipation Melatonin (Melatonin 3 Mg Tablet) 6 mg PO BEDTIME PRN PRN Reason: Insomnia Pharmacy Consult (Consult Rx Vancomycin Dosing) 1 each MISCELLANE DAILY PRN PRN Reason: Consult order Prednisone (Prednisone 20 Mg Tablet) 40 mg PO DAILY [facility] Sodium Chloride (0.9 % Sodium Chloride Flush 3 Ml Syringe) 3 ml IVFLUSH QSHIFT [facility] Home Medications ?Medication ?Instructions ?Recorded ?Confirmed ?Last Taken ?Type aspirin 81 mg tablet,delayed 81 mg PO DAILY 11/30/22 Unknown History release (Adult Aspirin Regimen) fexofenadine 180 mg tablet 180 mg PO DAILY 11/30/22 Unknown History lifitegrast 5 % eye drops in a 1 drp ophthalmic (eye) BID 11/30/22 Unknown History dropperette (Xiidra) losartan 100 mg tablet 100 mg PO DAILY 11/30/22 Unknown History metformin 500 mg tablet 500 mg PO DAILY 11/30/22 Unknown History potassium citrate 99 mg capsule mg PO 11/30/22 Unknown History simvastatin 20 mg tablet 20 mg PO DAILY 11/30/22 Unknown History Physical Exam 2 Vital Signs and Narrative: Vital Signs: Last Vital Signs Temp 98.4 F 09/22/24 17:53 Pulse 109 H 09/22/24 18:10 Resp 18 09/22/24 18:10 BP 144/72 H 09/22/24 18:10 Pulse Ox 99 09/22/24 18:10 O2 Del Method Room Air 09/22/24 18:10 BMI result Body Mass Index 34.6 General: AO X 3, no acute distress Resp: CTA bilateral, no accessory muscles used CVS: S1,S2,RRR GI: soft, non tender, non distended Neuro: motor grossly intact, alert Psych: appropriate affect, appropriate insight left knee pain and swelling Results Labs 09/22/24 15:57 09/22/24 15:57 Labs: Laboratory Results - last 24 hr 09/22/24 15:57 MCV 90.9 MCH 32.0 MCHC 35.2 RDW 13.3 Plt Count 352 MPV 10.3 Immature Gran % (Auto) 0.5 H Neut % (Auto) 89.1 H Lymph % (Auto) 3.5 L Forrest % (Auto) 6.7 Eos % (Auto) 0.0 Baso % (Auto) 0.2 Lymph # (Auto) 0.6 L Forrest # (Auto) 1.1 Eos # (Auto) 0.0 Baso # (Auto) 0.0 Abs Immat Gran (auto) 0.08 H Absolute Neuts (auto) 15.0 H Absolute Nucleated RBC 0.000 Nucleated RBC % (auto) 0.0 ESR 83 H PT 18.8 H INR 1.6 H Anion Gap 18 Estim Creat Clear Calc 58.5 Estimated GFR 52 Random Glucose 208 H Lactic Acid 1.8 Uric Acid 4.2 Calcium 10.2 Magnesium 2.0 Total Bilirubin 1.7 H AST 50 H ALT 41 H Alkaline Phosphatase 96 Total Creatine Kinase 379 H C-Reactive Protein 32.93 H Total Protein 8.0 Albumin 4.1 Influenza Type A (PCR) NEGATIVE Influenza Type B (PCR) NEGATIVE RSV RNA Qual (PCR) NEGATIVE SARS-CoV-2 RNA (RT-PCR) NEGATIVE Assessment and Plan (1) Fall: Status: Acute Plan 78M PMH DM, gout, obeisty, pafib on eliquis, CKD III, latent TB, HTN, presented with fall and left knee pain and swelling Left knee pain and swelling Inflammatory versus septic arthritis versus hemarthrosis IV vancomycin, ortho eval, follow up cultures, prednisone We will hold Eliquis in case intervention planned or if hemarthrosis Fall Mechanical due to above, no evidence of rhabdo or significant trauma Diabetes Insulin sliding scale Paroxysmal AFib Currently in sinus, holding Eliquis Obesity Weight loss recommended CKD 3 Stable DVT prophylaxis-mechanical incase hemarthrosis Full code Given possible septic arthritis and need for surgical intervention expected to require at least 2 midnights inpatient Quality Stroke Does the patient have a stroke diagnosis?: No VTE Prior VTE?: No VTE Risk Level:: Medical - moderate - high VTE Device Contraindication: Treatment Not Indicated VTE Drug Contraindication: N/A - Med Ordered
[2024-09-22] MEDS: predniSONE 20 MG TABLET 40 MG PO (18:59)
[2024-09-22 19:13] LABS: Appearance Urine Cloudy; Color Urine Dark Yellow; Glucose Urine UA 100 mg/dL (Negative); Leukocyte Esterase Urine Negative (Negative); Nitrite Urine Negative (Negative); Specific Gravity - Urine 1.025 (1.005-1.025); UMIC TRIGGER UACC YES; Urine Blood Moderate (2+) (Negative); Urine Ketones 15 mg/dL (Negative); Urine Protein 100 (2+) mg/dL (Neg-Trace)
[2024-09-22 19:27] LABS: Bacteria Urine None Seen (None Seen); Granular Casts Urine Present; WBC Urine 0-5 /HPF (0-5)
[2024-09-22 21:37] LABS: Glucose, Whole Blood 248 mg/dL (60-115)
[2024-09-22] MEDS: Insulin Lispro 100 UNIT/ML 3 ML VIAL SUBCUT (21:43)
[2024-09-22] MEDS: Melatonin 3 MG TABLET 6 MG PO (21:44)
[2024-09-23] VITALS (7 sets, daily range): BP systolic 131–143; BP diastolic 64–76; PULSE 84–99; RESP 18–22; TEMP 36.8–37.5; O2SAT 95–98
--- NOTE | 2024-09-23 05:21 | PC.NURSE ---
pt resting comfortably with eyes closed, breathing even and unlabored, no apparent distress noted. call reaves w/in reach
[2024-09-23] MEDS: vancomycin HCL 750 MG in 0.9 % Sodium Chloride 250 ML 265 MG IV (05:50)
[2024-09-23 06:33] LABS: Hematocrit 36.5 % (42.0-52.0); Hemoglobin 12.8 g/dl (14.0-18.0); Mean Corpuscular HGB Conc 35.1 g/dl (31.0-36.0); Mean Corpuscular Hemoglobin 32.2 pg (27.0-33.0); Mean Corpuscular Volume 91.7 fL (80.0-98.0); Mean Platelet Volume 10.4 fL (9.4-12.4); Platelet Count 317 X10*3/uL (160-400); Red Blood Count 3.98 X10*6/uL (4.60-5.80); Red Cell Distribution Width 13.2 % (11.0-16.0); White Blood Count 16.3 X10*3/uL (4.8-10.8)
[2024-09-23 06:51] LABS: Anion Gap 16 (12-20); Blood Urea Nitrogen 38 mg/dL (9-16); Calcium 9.6 mg/dL (8.4-10.2); Carbon Dioxide 22 mmol/L (22-29); Chloride 102 mmol/L (96-108); Creatinine Clr Calc Pharmacy 50.5; Estimated Glomerular Filt Rate 44; Glucose Random 202 mg/dL (60-115); Magnesium 2.3 mg/dL (1.6-2.6); Potassium 4.4 mmol/L (3.3-5.1); Sodium 136 mmol/L (135-145)
[2024-09-23] MEDS: Insulin Lispro 100 UNIT/ML 3 ML VIAL SUBCUT ×4 (07:30→21:41)
[2024-09-23 07:33] LABS: Glucose, Whole Blood 172 mg/dL (60-115)
--- NOTE | 2024-09-23 07:57 | HO.PM.IMPN ---
Subjective Subjective Date of Service: 09/23/24 Interval History: minimal improvement Physical Exam Vital Signs: Vital Signs: Last Vital Signs Temp 98.2 F 09/23/24 05:47 Pulse 93 09/23/24 07:25 Resp 22 H 09/23/24 07:25 BP 134/71 09/23/24 07:25 Pulse Ox 97 09/23/24 07:25 O2 Del Method Room Air 09/23/24 07:25 BMI result Body Mass Index 34.6 General: AO X 3, no acute distress Resp: CTA bilateral, no accessory muscles used CVS: S1,S2,RRR GI: soft, non tender, non distended Neuro: motor grossly intact, alert Psych: appropriate affect, appropriate insight left knee swelling, tender Objective Data Active Medications Acetaminophen (Acetaminophen 325 Mg Tablet) 650 mg PO Q6H PRN PRN Reason: Pain, Mild 1-3,fever,headache Allopurinol (Allopurinol 300 Mg Tablet) 300 mg PO DAILY [facility] Atorvastatin Calcium (Atorvastatin Calcium 10 Mg Tablet) 10 mg PO BEDTIME [facility] Calcium Carbonate (Calcium Carbonate 750 Mg Tab.Chew) 750 mg PO Q4H PRN PRN Reason: Heartburn Dextrose (Dextrose 50 % 25 Gm/50 Ml Syringe) 25 gm IVPUSH Q15M PRN; Protocol PRN Reason: per Hypoglycemia Standing Ord. Glucose (Glucose Gel 15 Gm Gel..Gram.) 15 gm PO Q15M PRN; Protocol PRN Reason: per Hypoglycemia Standing Ord. Vancomycin HCl 750 mg/ Sodium (Chloride) 265 mls @ 265 mls/hr IV Q12H [facility] Last Infusion: 09/23/24 07:25 Dose: Infused Documented By: DAMION Insulin Human Lispro (Insulin Lispro 100 Unit/Ml 3 Ml Vial) 0 unit SUBCUT QIDACHS [facility]; Protocol Last Admin: 09/23/24 07:30 Dose: 2 unit Documented By: DAMION Comments: POC was 172 prior to admin. 2units given Losartan Potassium (Losartan Potassium 50 Mg Tablet) 50 mg PO DAILY [facility]; Protocol Magnesium Hydroxide (Milk Of Magnesia 30 Ml Oral.Susp) 30 ml PO DAILY PRN PRN Reason: Constipation Melatonin (Melatonin 3 Mg Tablet) 6 mg PO BEDTIME PRN PRN Reason: Insomnia Last Admin: 09/22/24 21:44 Dose: 6 mg Documented By: ANA Pharmacy Consult (Consult Rx Vancomycin Dosing) 1 each MISCELLANE DAILY PRN PRN Reason: Consult order Prednisone (Prednisone 20 Mg Tablet) 40 mg PO DAILY [facility] Last Admin: 09/22/24 18:59 Dose: 40 mg Documented By: ROMERO Sodium Chloride (0.9 % Sodium Chloride Flush 3 Ml Syringe) 3 ml IVFLUSH QSHIFT [facility] Last Admin: 09/23/24 02:20 Dose: Not Given Documented By: ANA Non-Admin Reason: Previously Administered Labs 09/23/24 05:55 09/23/24 05:55 Labs: Laboratory Results - last 24 hr 09/22/24 09/22/24 09/22/24 15:57 19:06 21:33 MCV 90.9 MCH 32.0 MCHC 35.2 RDW 13.3 Plt Count 352 MPV 10.3 Immature Gran % (Auto) 0.5 H Neut % (Auto) 89.1 H Lymph % (Auto) 3.5 L [place] % (Auto) 6.7 Eos % (Auto) 0.0 Baso % (Auto) 0.2 Lymph # (Auto) 0.6 L [place] # (Auto) 1.1 Eos # (Auto) 0.0 Baso # (Auto) 0.0 Abs Immat Gran (auto) 0.08 H Absolute Neuts (auto) 15.0 H Absolute Nucleated RBC 0.000 Nucleated RBC % (auto) 0.0 ESR 83 H PT 18.8 H INR 1.6 H Anion Gap 18 Estim Creat Clear Calc 58.5 Estimated GFR 52 POC Glucose 248 H Random Glucose 208 H Lactic Acid 1.8 Uric Acid 4.2 Calcium 10.2 Magnesium 2.0 Total Bilirubin 1.7 H AST 50 H ALT 41 H Alkaline Phosphatase 96 Total Creatine Kinase 379 H C-Reactive Protein 32.93 H Total Protein 8.0 Albumin 4.1 Urine Color Dark Yellow Urine Appearance Cloudy Urine pH 5.0 Ur Specific [place] 1.025 Urine Protein 100 (2+) H Urine Glucose (UA) 100 H Urine Ketones 15 Urine Blood Moderate (2+) H Urine Nitrite Negative Ur Leukocyte Esterase Negative Urine RBC 6-10 H Urine WBC 0-5 Ur Squamous Epith Cells 11-20 Urine Bacteria None Seen Hyaline Casts 6-10 Granular Casts Present Influenza Type A (PCR) NEGATIVE Influenza Type B (PCR) NEGATIVE RSV RNA Qual (PCR) NEGATIVE SARS-CoV-2 RNA (RT-PCR) NEGATIVE 09/23/24 09/23/24 05:55 07:23 MCV 91.7 MCH 32.2 MCHC 35.1 RDW 13.2 Plt Count 317 MPV 10.4 Immature Gran % (Auto) Neut % (Auto) Lymph % (Auto) [place] % (Auto) Eos % (Auto) Baso % (Auto) Lymph # (Auto) [place] # (Auto) Eos # (Auto) Baso # (Auto) Abs Immat Gran (auto) Absolute Neuts (auto) Absolute Nucleated RBC 0.000 Nucleated RBC % (auto) 0.0 ESR PT INR Anion Gap 16 Estim Creat Clear Calc 50.5 Estimated GFR 44 POC Glucose 172 H Random Glucose 202 H Lactic Acid Uric Acid Calcium 9.6 Magnesium 2.3 Total Bilirubin AST ALT Alkaline Phosphatase Total Creatine Kinase C-Reactive Protein Total Protein Albumin Urine Color Urine Appearance Urine pH Ur Specific [place] Urine Protein Urine Glucose (UA) Urine Ketones Urine Blood Urine Nitrite Ur Leukocyte Esterase Urine RBC Urine WBC Ur Squamous Epith Cells Urine Bacteria Hyaline Casts Granular Casts Influenza Type A (PCR) Influenza Type B (PCR) RSV RNA Qual (PCR) SARS-CoV-2 RNA (RT-PCR) Assessment and Plan (1) Fall: Status: Acute Plan 78M PMH DM, gout, obeisty, pafib on eliquis, CKD III, latent TB, HTN, presented with fall and left knee pain and swelling Left knee pain and swelling Inflammatory versus septic arthritis versus hemarthrosis continue IV vancomycin, ortho eval, follow up cultures, prednisone holding Eliquis in case intervention planned or if hemarthrosis Fall Mechanical due to above, no evidence of rhabdomyolysis or significant trauma Diabetes Insulin sliding scale Paroxysmal AFib Currently in sinus, holding Eliquis Obesity Weight loss recommended CKD 3 Stable DVT prophylaxis-mechanical incase hemarthrosis Full code reason for continued hospitalization:iv abx, ortho eval Quality Stroke Does the patient have a stroke diagnosis?: No VTE Prior VTE?: No VTE Risk Level:: Medical - moderate - high VTE Device Contraindication: Treatment Not Indicated VTE Drug Contraindication: N/A - Med Ordered
--- NOTE | 2024-09-23 08:55 | PM.EVENT ---
Event Note Date of Service: 09/23/24 Event Note: left kne asp #1 syringe appeared to be joint fluid #2 syringe appeared to be more puss No redness to the left knee cx and cell count and gram stain sent Time Spent With Patient Time: Total time managing care of this patient today ____ minutes.
[2024-09-23 09:23] LABS: Source Synovial Fluid left knee
[2024-09-23 09:28] LABS: Source Synovial Fluid lt knee
[2024-09-23 10:01] LABS: MN% 6.7 %; PMN% 93.3 %
--- NOTE | 2024-09-23 10:01 | PHA.MEDREC ---
Addendum entered by Erica Anton [facility] 09/23/24 11:48: REVIEWED BY PHARMACIST Original Note: Pharmacy Consult ? Medication Reconciliation Pharmacy has completed the medication reconciliation. Spoke with patient to confirm medications. He had a list from home. [facility] list. Patient reports also taking OTC arthritis pain 650 mg - 2 tabs every 8 hours as needed. He also takes hyaluronic acid 100 mg daily OTC. He confirmed that he has not been taking naproxen. He last took his medications the day before yesterday, including the eliquis.
[2024-09-23] MEDS: predniSONE 20 MG TABLET 40 MG PO (10:31)
[2024-09-23] MEDS: 0.9 % Sodium Chloride Flush 3 ML SYRINGE IVFLUSH ×3 (10:31→21:47)
[2024-09-23] MEDS: Losartan Potassium 50 MG TABLET PO (10:32)
[2024-09-23] MEDS: allopurinoL 300 MG TABLET PO (10:32)
--- NOTE | 2024-09-23 10:57 | PM.CNOR ---
History of Present Illness HPI Consult date: 09/23/24 Chief complaint: septic arthritis Narrative: 78 yo male with worsening left knee pain. PMH gout and Afib on eliquis. He states approx 10-12 days ago he developed left knee pain. No injury. States he was using a cane and a walker for ambulation as it became more difficult to walk. He was seen by his PCP on 09/19, left knee asp but unsure of the results. Presented to the ED due to worsening pain and swelling. While in the ED, patient was admitted to medical service and orthopedics consulted for further recommendations. Review of Systems Review of Systems: Yes all other systems are reviewed and are negative [facility] Past Medical History Medical History Hyperlipidemia Gout History of kidney stones Diabetes mellitus Benign essential hypertension OA (osteoarthritis) Iritis Chronic kidney disease, stage 3b Sensorineural hearing loss Social History Social History Patient Tobacco Use Status: Never used Tobacco Smoked in Last 30 Days: No Use of substances other than those prescribed or required for medical reasons: No Advance Directives: No Advance Directives Information Provided: No Do you have a plan to hurt others: No Plan Nutrition Risks: No Nutritional Risk Meds Allergies Allergy/AdvReac Type Severity Reaction Status Date / Time No Known Allergies Allergy Verified 09/22/24 15:20 Active Medications: Current Medications Acetaminophen (Acetaminophen 325 Mg Tablet) 650 mg PO Q6H PRN PRN Reason: Pain, Mild 1-3,fever,headache Allopurinol (Allopurinol 300 Mg Tablet) 300 mg PO DAILY [facility] Last Admin: 09/23/24 10:32 Dose: 300 mg Atorvastatin Calcium (Atorvastatin Calcium 10 Mg Tablet) 10 mg PO BEDTIME [facility] Calcium Carbonate (Calcium Carbonate 750 Mg Tab.Chew) 750 mg PO Q4H PRN PRN Reason: Heartburn Cyanocobalamin (Cyanocobalamin (Vitamin B-12) 500 Mcg Tablet) 2,500 mcg PO DAILY [facility] Dextrose (Dextrose 50 % 25 Gm/50 Ml Syringe) 25 gm IVPUSH Q15M PRN; Protocol PRN Reason: per Hypoglycemia Standing Ord. Diltiazem HCl (Diltiazem Hcl Cd 180 Mg Cap.Er.24h) 180 mg PO DAILY [facility]; Protocol Glucose (Glucose Gel 15 Gm Gel..Gram.) 15 gm PO Q15M PRN; Protocol PRN Reason: per Hypoglycemia Standing Ord. Cefazolin Sodium/Dextrose (Ancef) 2 gm in 50 mls @ 100 mls/hr IV Q8H [facility] Insulin Human Lispro (Insulin Lispro 100 Unit/Ml 3 Ml Vial) 0 unit SUBCUT QIDACHS [facility]; Protocol Last Admin: 09/23/24 07:30 Dose: 2 unit Loratadine (Loratadine 10 Mg Tablet) 10 mg PO DAILY [facility] Losartan Potassium (Losartan Potassium 50 Mg Tablet) 50 mg PO DAILY [facility]; Protocol Last Admin: 09/23/24 10:32 Dose: 50 mg Magnesium Hydroxide (Milk Of Magnesia 30 Ml Oral.Susp) 30 ml PO DAILY PRN PRN Reason: Constipation Melatonin (Melatonin 3 Mg Tablet) 6 mg PO BEDTIME PRN PRN Reason: Insomnia Last Admin: 09/22/24 21:44 Dose: 6 mg Multivitamins/Vitamin C (Multivitamin Tablet) 1 tab PO DAILY [facility] Non-Formulary Medication (Cyclosporine [Restasis]) 1 drop EYE-BOTH Q12H [facility] Sodium Chloride (0.9 % Sodium Chloride Flush 3 Ml Syringe) 3 ml IVFLUSH QSHIFT [facility] Last Admin: 09/23/24 10:31 Dose: 3 ml Vitamin D (Cholecalciferol (Vitamin D3) 25 Mcg Tablet) 50 mcg PO DAILY [facility] Home Medications ?Medication ?Instructions ?Recorded ?Confirmed ?Last Taken ?Type fexofenadine 180 mg tablet 180 mg PO DAILY 11/30/22 09/23/24 Unknown History potassium citrate 99 mg capsule 99 mg PO DAILY 11/30/22 09/23/24 Unknown History acetaminophen 650 mg 1,300 mg PO Q8H PRN Pain 09/23/24 09/23/24 Unknown History tablet,extended release (Arthritis Pain Relief (acetaminophen) ER) allopurinol 300 mg tablet 300 mg PO DAILY 09/23/24 09/23/24 Unknown History alpha lipoic acid 300 mg capsule 300 mg PO DAILY 09/23/24 09/23/24 Unknown History apixaban 5 mg tablet (Eliquis) 5 mg PO BID 09/23/24 09/23/24 09/21/24 History cholecalciferol (vitamin D3) 50 50 mcg PO DAILY 09/23/24 09/23/24 Unknown History mcg (2,000 unit) tablet cyanocobalamin (vitamin B-12) 2,500 mcg PO DAILY 09/23/24 09/23/24 Unknown History 2,500 mcg tablet cyclosporine 0.05 % eye drops in a 1 drp ophthalmic (eye) Q12H 09/23/24 09/23/24 Unknown History dropperette (Restasis) diltiazem HCl 180 mg capsule,24 180 mg PO DAILY 09/23/24 09/23/24 Unknown History hr,extended release glucosamine-chondroitin 500 mg-400 1 tab PO DAILY 09/23/24 09/23/24 Unknown History mg tablet losartan 50 mg tablet 50 mg PO QAM 09/23/24 09/23/24 Unknown History metformin 500 mg tablet,extended 1,000 mg PO BID 09/23/24 09/23/24 Unknown History release 24hr (osmotic) multivitamin 1 tab PO DAILY 09/23/24 09/23/24 Unknown History simvastatin 40 mg tablet 20 mg PO BEDTIME 09/23/24 09/23/24 Unknown History turmeric 400 mg capsule 400 mg PO DAILY 09/23/24 09/23/24 Unknown History Physical Exam Vital Signs: Vital Signs: Last Vital Signs Temp 98.2 F 09/23/24 05:47 Pulse 84 09/23/24 10:32 Resp 20 09/23/24 10:32 BP 131/64 09/23/24 10:32 Pulse Ox 95 09/23/24 10:32 O2 Del Method Room Air 09/23/24 10:32 BMI result Body Mass Index 34.6 Const: General: cooperative, healthy appearing, comfortable and no acute distress Extrem: Other: Left knee skin intact, no redness Moderate joint effusion Pulses present Results Labs 09/23/24 05:55 09/23/24 05:55 Labs: Abnormal lab results 09/22/24 09/22/24 09/22/24 Range/Units 15:57 19:06 21:33 WBC 16.8 H (4.8-10.8) X10*3/uL RBC 4.41 L (4.60-5.80) X10*6/uL Hgb (14.0-18.0) g/dl Hct 40.1 L (42.0-52.0) % Immature Gran % (Auto) 0.5 H (0.0-0.4) % Neut % (Auto) 89.1 H (45-73) % Lymph % (Auto) 3.5 L (20-40) % Lymph # (Auto) 0.6 L (1.2-4.9) X10*3/uL Abs Immat Gran (auto) 0.08 H (0.00-0.03) X10*3/uL Absolute Neuts (auto) 15.0 H (2.0-8.3) x10*3/uL ESR 83 H (0-15) MM/HR PT 18.8 H (10.9-12.4) SEC INR 1.6 H (0.9-1.1) BUN 30 H (9-16) mg/dL Creatinine (0.5-1.4) mg/dL POC Glucose 248 H (60-115) mg/dL Random Glucose 208 H (60-115) mg/dL Total Bilirubin 1.7 H (0.0-1.0) mg/dL AST 50 H (5-37) U/L ALT 41 H (0-40) U/L Total Creatine Kinase 379 H (38-174) U/L C-Reactive Protein 32.93 H (< or = 0.50) mg/dL Urine Protein 100 (2+) H (Neg-Trace) mg/dL Urine Glucose (UA) 100 H (Negative) mg/dL Urine Blood Moderate (2+) H (Negative) Urine RBC 6-10 H (0-2) /HPF 09/23/25 09/23/24 Range/Units 05:55 07:23 WBC 16.3 H (4.8-10.8) X10*3/uL RBC 3.98 L (4.60-5.80) X10*6/uL Hgb 12.8 L (14.0-18.0) g/dl Hct 36.5 L (42.0-52.0) % Immature Gran % (Auto) (0.0-0.4) % Neut % (Auto) (45-73) % Lymph % (Auto) (20-40) % Lymph # (Auto) (1.2-4.9) X10*3/uL Abs Immat Gran (auto) (0.00-0.03) X10*3/uL Absolute Neuts (auto) (2.0-8.3) x10*3/uL ESR (0-15) MM/HR PT (10.9-12.4) SEC INR (0.9-1.1) BUN 38 H (9-16) mg/dL Creatinine 1.54 H (0.5-1.4) mg/dL POC Glucose 172 H (60-115) mg/dL Random Glucose 202 H (60-115) mg/dL Total Bilirubin (0.0-1.0) mg/dL AST (5-37) U/L ALT (0-40) U/L Total Creatine Kinase (38-174) U/L C-Reactive Protein (< or = 0.50) mg/dL Urine Protein (Neg-Trace) mg/dL Urine Glucose (UA) (Negative) mg/dL Urine Blood (Negative) Urine RBC (0-2) /HPF H & H 09/22/24 09/23/24 Range/Units 15:57 05:55 Hgb 14.1 12.8 L (14.0-18.0) g/dl Hct 40.1 L 36.5 L (42.0-52.0) % Coagulation 09/22/24 Range/Units 15:57 INR 1.6 H (0.9-1.1) Name: Rayo Veliz Age/Sex: 78/M : 1945 Unit#: [id number] Attend Dr: Jonathan Chaudhari MD Re09/22/24 Status: ADM IN Location: [place] [address] Disch: Specimen: [id number] Collected: 09/23/24 Status: RES Req#: [id number] Received: 09/23/24 Source: Knee aspir Sp Desc: Subm Dr: Heather Avila PA-C Ordered: SynFld Cult/Cry Comments: Specimen #2 collected 850 Procedure Result Verified Gram stain Final 09/23/24 Gram stain results: 4+ polys 4+ red blood cells No organisms seen Anaerobic Culture PENDING Appearance Final 09/23/24 Appearance Bloody Turbid Crystals Final 09/23/24 Crystals intracellular calcium pyrophosphate crystals Synovial fluid culture PENDING Assessment and Plan (1) Pseudogout of left knee: Status: Acute Plan Reviewed case with Dr Cervantes. Joint analysis consistent with Pseudogout. Blood cx +MSSA In the setting of +Blood cultures and joint analysis +pseudogout and neg for organisms on gram stain ; treat medically with IV abx --if symptoms worsen or final joint analysis returns with +culture; consider arthroscopic wash out Encourage compression and ROM of the left knee WBAT Gram stain Final 09/23/24-1044 Gram stain results: 4+ polys 4+ red blood cells No organisms seen Anaerobic Culture PENDING Appearance Final 09/23/24 Appearance Bloody Turbid Crystals Final 09/23/24-1044 Crystals intracellular calcium pyrophosphate crystals Synovial fluid culture PENDING Procedures Date of Service Date of Service: 09/23/24 Joint Aspiration/Injection Joint Asp./Inject. 1: Time out performed: Yes Side of body: left Joint Aspirated/Injected: knee Skin prep: Povidone-Iodine1% Needle size used: 18G Fluid obtained: turbid Total fluid obtained (ml): 70 Patient tolerated procedure: well Complications: none
[2024-09-23 11:05] LABS: RBC Synovial Fluid 0.008 X10*6/uL
[2024-09-23] MEDS: ceFAZolin Sodium/Dextrose,Iso 2 GM/50 ML PIGGYBACK IV ×2 (11:05→18:16)
[2024-09-23 11:23] LABS: MN% 7.6 %; PMN% 92.4 %
[2024-09-23 11:24] LABS: RBC Synovial Fluid 0.045 X10*6/uL
[2024-09-23 11:30] LABS: BF Shift QC OK YES; Lymphocytes Synovial Fluid 4 %; Man Diluent Bkgrd OK YES; Monocytes Synovial Fluid 7 %; Neutrophils Synovial Fluid 89 %
[2024-09-23 11:39] LABS: Lymphocytes Synovial Fluid 5 %; Neutrophils Synovial Fluid 88 %
[2024-09-23 11:40] LABS: BF Shift QC OK YES; Man Diluent Bkgrd OK YES; Monocytes Synovial Fluid 7 %
[2024-09-23 12:14] LABS: Glucose, Whole Blood 169 mg/dL (60-115)
--- NOTE | 2024-09-23 15:04 | MHC.CM.PN ---
PT REPORTS HE LIVES ALONE AND IS INDEPENDENT WITH CARE HE HAS BEEN USING A CANE BUT TYPICALLY DOES NOT REQUIRE DME HE HAS NO SERVICES HE DOES NOT HAVE A HCP AND DECLINES TO COMPLETE ONE TODAY PCP: IRWIN MAKI [place] [facility] [place] DCP: HOME VS STR TRANSPORT TBD, UNSURE IF HE WOULD HAVE A RIDE IF DC HOME
[2024-09-23 16:30] LABS: Glucose, Whole Blood 328 mg/dL (60-115)
--- NOTE | 2024-09-23 20:00 | PC.NURSE ---
This RN assumed care at 1900, AOx4 can be forgetful at times, but calm and cooperative, pt denies pain at this time, reports pain is mostly with movement. LS diminished throughout but clear, Denies SOB/CP/h/a, RR even and non-labored, BSx4, +pedal pulses/CMS. KODY wrap to Left knee CDI, some non-pitting noted to L knee, Sequential's on. Pt educated on how the Sequential's help prevent blood clots, pt verbalized understanding. No apparent distress noted at this time, will continue to reassess. VSS, Call reaves within reach.
[2024-09-23 20:39] LABS: Glucose, Whole Blood 251 mg/dL (60-115)
[2024-09-23] MEDS: Melatonin 3 MG TABLET 6 MG PO (21:40)
[2024-09-23] MEDS: Atorvastatin Calcium 10 MG TABLET PO (21:40)
[2024-09-24] VITALS (9 sets, daily range): BP systolic 134–157; BP diastolic 66–81; PULSE 76–98; RESP 16–18; TEMP 36.4–37.1; O2SAT 94–100
[2024-09-24] MEDS: ceFAZolin Sodium/Dextrose,Iso 2 GM/50 ML PIGGYBACK IV ×3 (03:11→17:45)
[2024-09-24 07:00] LABS: Anion Gap 15 (12-20); Blood Urea Nitrogen 49 mg/dL (9-16); C Reactive Protein 20.58 mg/dL (< or = 0.50); Calcium 9.6 mg/dL (8.4-10.2); Carbon Dioxide 23 mmol/L (22-29); Chloride 103 mmol/L (96-108); Creatinine Clr Calc Pharmacy 47.1; Estimated Glomerular Filt Rate 41; Glucose Random 187 mg/dL (60-115); Potassium 4.2 mmol/L (3.3-5.1); Sodium 137 mmol/L (135-145)
[2024-09-24 07:05] LABS: Hematocrit 36.3 % (42.0-52.0); Hemoglobin 12.6 g/dl (14.0-18.0); Mean Corpuscular HGB Conc 34.7 g/dl (31.0-36.0); Mean Corpuscular Hemoglobin 31.9 pg (27.0-33.0); Mean Corpuscular Volume 91.9 fL (80.0-98.0); Mean Platelet Volume 10.6 fL (9.4-12.4); Platelet Count 369 X10*3/uL (160-400); Red Blood Count 3.95 X10*6/uL (4.60-5.80); Red Cell Distribution Width 13.3 % (11.0-16.0); White Blood Count 17.7 X10*3/uL (4.8-10.8)
[2024-09-24 07:20] LABS: Glucose, Whole Blood 177 mg/dL (60-115)
[2024-09-24] MEDS: dilTIAZem HCL CD 180 MG CAP.ER.24H PO (07:45)
[2024-09-24] MEDS: Cholecalciferol (Vitamin D3) 25 MCG TABLET 50 MCG PO (07:45)
[2024-09-24] MEDS: Losartan Potassium 50 MG TABLET PO (07:46)
[2024-09-24] MEDS: allopurinoL 300 MG TABLET PO (07:46)
[2024-09-24] MEDS: Cyanocobalamin (Vitamin B-12) 500 MCG TABLET 2500 MCG PO (07:46)
[2024-09-24] MEDS: Multivitamin TABLET 1 TAB PO (07:46)
[2024-09-24] MEDS: Loratadine 10 MG TABLET PO (07:46)
[2024-09-24] MEDS: 0.9 % Sodium Chloride Flush 3 ML SYRINGE IVFLUSH ×3 (07:47→21:03)
--- NOTE | 2024-09-24 08:44 | PM.PNORT ---
Subjective Subjective Date of Service: 09/24/24 Interval history: Admission day 2 for left knee pseudogout flare/? septic arthritis Patient resting comfortably in bed this morning Complaining of ?ache? in the left knee No acute events overnight No other acute complaints or concerns at this time Physical Exam Vital Signs: Vital Signs: Last Vital Signs Temp 97.5 F 09/24/24 06:57 Pulse 85 09/24/24 06:57 Resp 16 09/24/24 06:57 BP 144/74 H 09/24/24 06:57 Pulse Ox 96 09/24/24 06:57 O2 Del Method Room Air 09/24/24 06:57 BMI result Body Mass Index 34.6 Const: General: cooperative, healthy appearing, comfortable and no acute distress Extrem: Other: Left knee skin intact, no redness Moderate joint effusion Pulses present Procedures Date of Service Date of Service: 09/24/24 Progress Note: A&P Assessment and plan (1) Pseudogout of left knee: Status: Acute (2) Fall: Status: Acute (3) Arthritis, septic, knee: Status: Acute Plan 1. Left knee pseudogout flare/? septic arthritis Aspiration performed yesterday reveals negative Gram stain and calcium pyrophosphate crystals Awaiting results of culture of joint fluid for determination if surgical intervention is indicated Continue IV antibiotics Patient may weightbear as tolerated on left knee Range of motion of the left knee Time Spent With Patient Time: Total time managing care of this patient today ____ minutes. Quality Stroke Does the patient have a stroke diagnosis?: No VTE Prior VTE?: No VTE Risk Level:: Medical - moderate - high VTE Device Contraindication: Treatment Not Indicated VTE Drug Contraindication: N/A - Med Ordered
--- NOTE | 2024-09-24 08:48 | P.PNIM_ITS ---
Subjective Subjective Date of Service: 09/24/24 Interval History: minimal improvement Physical Exam 2 Vital Signs: Vital Signs: Last Vital Signs Temp 97.5 F 09/24/24 06:57 Pulse 85 09/24/24 06:57 Resp 16 09/24/24 06:57 BP 144/74 H 09/24/24 06:57 Pulse Ox 96 09/24/24 06:57 O2 Del Method Room Air 09/24/24 06:57 BMI result Body Mass Index 34.6 Const: General: cooperative, healthy appearing, comfortable and no acute distress Extrem: Other: Left knee skin intact, no redness Moderate joint effusion Pulses present Objective Data Active Medications Acetaminophen (Acetaminophen 325 Mg Tablet) 650 mg PO Q6H PRN PRN Reason: Pain, Mild 1-3,fever,headache Allopurinol (Allopurinol 300 Mg Tablet) 300 mg PO DAILY [facility] Last Admin: 09/24/24 07:46 Dose: 300 mg Documented By: MELITON Atorvastatin Calcium (Atorvastatin Calcium 10 Mg Tablet) 10 mg PO BEDTIME [facility] Last Admin: 09/23/24 21:40 Dose: 10 mg Documented By: ADIN Calcium Carbonate (Calcium Carbonate 750 Mg Tab.Chew) 750 mg PO Q4H PRN PRN Reason: Heartburn Cyanocobalamin (Cyanocobalamin (Vitamin B-12) 500 Mcg Tablet) 2,500 mcg PO DAILY [facility] Last Admin: 09/24/24 07:46 Dose: 2,500 mcg Documented By: MELITON Dextrose (Dextrose 50 % 25 Gm/50 Ml Syringe) 25 gm IVPUSH Q15M PRN; Protocol PRN Reason: per Hypoglycemia Standing Ord. Diltiazem HCl (Diltiazem Hcl Cd 180 Mg Cap.Er.24h) 180 mg PO DAILY [facility]; Protocol Last Admin: 09/24/24 07:45 Dose: 180 mg Documented By: MELITON Glucose (Glucose Gel 15 Gm Gel..Gram.) 15 gm PO Q15M PRN; Protocol PRN Reason: per Hypoglycemia Standing Ord. Cefazolin Sodium/Dextrose (Ancef) 2 gm in 50 mls @ 100 mls/hr IV Q8H [facility] Last Infusion: 09/24/24 03:36 Dose: Infused Documented By: ADIN Insulin Human Lispro (Insulin Lispro 100 Unit/Ml 3 Ml Vial) 0 unit SUBCUT QIDACHS [facility]; Protocol Last Admin: 09/24/24 07:46 Dose: Not Given Documented By: MELITON Non-Admin Reason: NPO Loratadine (Loratadine 10 Mg Tablet) 10 mg PO DAILY [facility] Last Admin: 09/24/24 07:46 Dose: 10 mg Documented By: MELITON Losartan Potassium (Losartan Potassium 50 Mg Tablet) 50 mg PO DAILY [facility]; Protocol Last Admin: 09/24/24 07:46 Dose: 50 mg Documented By: MELITON Magnesium Hydroxide (Milk Of Magnesia 30 Ml Oral.Susp) 30 ml PO DAILY PRN PRN Reason: Constipation Melatonin (Melatonin 3 Mg Tablet) 6 mg PO BEDTIME PRN PRN Reason: Insomnia Last Admin: 09/23/24 21:40 Dose: 6 mg Documented By: ADIN Multivitamins/Vitamin C (Multivitamin Tablet) 1 tab PO DAILY [facility] Last Admin: 09/24/24 07:46 Dose: 1 tab Documented By: MELITON Non-Formulary Medication (Cyclosporine [Restasis]) 1 drop EYE-BOTH Q12H [facility] Sodium Chloride (0.9 % Sodium Chloride Flush 3 Ml Syringe) 3 ml IVFLUSH QSHIFT [facility] Last Admin: 09/24/24 07:47 Dose: 3 ml Documented By: MELITON Vitamin D (Cholecalciferol (Vitamin D3) 25 Mcg Tablet) 50 mcg PO DAILY [facility] Last Admin: 09/24/24 07:45 Dose: 50 mcg Documented By: MELITON Labs 09/24/24 06:24 09/24/24 06:24 Labs: Laboratory Results - last 24 hr 09/23/24 09/23/24 09/23/24 08:50 08:51 12:10 MCV MCH MCHC RDW Plt Count MPV Absolute Nucleated RBC Nucleated RBC % (auto) Anion Gap Estim Creat Clear Calc Estimated GFR POC Glucose 169 H Random Glucose Calcium C-Reactive Protein Synovial Source left knee lt knee Synovial WBC 59.410 137.580 Synovial RBC 0.008 0.045 Synovial Neutrophils 89 88 Synovial Lymphocytes 4 5 Synovial Monocytes 7 7 09/23/24 09/23/24 09/24/24 16:26 20:33 06:24 MCV 91.9 MCH 31.9 MCHC 34.7 RDW 13.3 Plt Count 369 MPV 10.6 Absolute Nucleated RBC 0.000 Nucleated RBC % (auto) 0.0 Anion Gap 15 Estim Creat Clear Calc 47.1 Estimated GFR 41 POC Glucose 328 H 251 H Random Glucose 187 H Calcium 9.6 C-Reactive Protein 20.58 H Synovial Source Synovial WBC Synovial RBC Synovial Neutrophils Synovial Lymphocytes Synovial Monocytes 09/24/24 07:12 MCV MCH MCHC RDW Plt Count MPV Absolute Nucleated RBC Nucleated RBC % (auto) Anion Gap Estim Creat Clear Calc Estimated GFR POC Glucose 177 H Random Glucose Calcium C-Reactive Protein Synovial Source Synovial WBC Synovial RBC Synovial Neutrophils Synovial Lymphocytes Synovial Monocytes Microbiology Microbiology Results: Microbiology 09/22/24 15:58 Blood Culture - Preliminary Blood - Venous Staphylococcus species 09/22/24 15:57 Blood Culture - Preliminary Blood - Venous Staphylococcus species 09/23/24 08:50 Gram Stain - Final Knee aspirate Gross Specimen Examination - Final Fluid Crystals - Final 09/23/24 08:51 Gram Stain - Final Knee aspirate Gross Specimen Examination - Final Fluid Crystals - Final Assessment and Plan (1) Fall: Status: Acute Plan 78M PMH DM, gout, obeisty, pafib on eliquis, CKD III, latent TB, HTN, presented with fall and left knee pain and swelling Left knee pain and swelling Inflammatory (psuedogout) with secondary septic arthritis complicated by MSSA bacteremia IV cefazolin, ortho following holding Eliquis in case intervention ID eval, follow up repeat cultures, echo Fall Mechanical due to above, no evidence of rhabdomyolysis or significant trauma Diabetes Insulin sliding scale Paroxysmal AFib Currently in sinus, holding Eliquis Obesity Weight loss recommended CKD 3 Stable DVT prophylaxis-mechanical pending washout Full code reason for continued hospitalization:bacteremia Quality Stroke Does the patient have a stroke diagnosis?: No VTE Prior VTE?: No VTE Risk Level:: Medical - moderate - high VTE Device Contraindication: Treatment Not Indicated VTE Drug Contraindication: N/A - Med Ordered
--- NOTE | 2024-09-24 10:46 | P.CONAN_ITS ---
HPI - Anesthesia Eval Consult details Narrative: 78 yo M presenting for left knee arthroscopy. Admitted for septic knee arthritis. [facility] Active Problems Active Problems: All Active Problems Pseudogout of left knee (Acute) Fall (Acute) Arthritis, septic, knee (Acute) Nephrolithiasis (Acute) Past Medical History Medical History Hyperlipidemia Gout History of kidney stones Diabetes mellitus Benign essential hypertension OA (osteoarthritis) Iritis Chronic kidney disease, stage 3b Sensorineural hearing loss Family History Family history of problems with anesthesia: No Surgical History History of Problems with Anesthesia: No Social History Social History Household Members: None Housing: House Do you presently have visiting nurse or other home services: No Patient Tobacco Use Status: Never used Tobacco e-Cigarette/Vaping Use: Former Use service: Yes Meds Allergies Allergy/AdvReac Type Severity Reaction Status Date / Time shrimp Allergy Anaphylaxis Verified 09/23/24 12:41 Active Medications: Current Medications Acetaminophen (Acetaminophen 325 Mg Tablet) 650 mg PO Q6H PRN PRN Reason: Pain, Mild 1-3,fever,headache Allopurinol (Allopurinol 300 Mg Tablet) 300 mg PO DAILY [facility] Last Admin: 09/24/24 07:46 Dose: 300 mg Atorvastatin Calcium (Atorvastatin Calcium 10 Mg Tablet) 10 mg PO BEDTIME [facility] Last Admin: 09/23/24 21:40 Dose: 10 mg Calcium Carbonate (Calcium Carbonate 750 Mg Tab.Chew) 750 mg PO Q4H PRN PRN Reason: Heartburn Cyanocobalamin (Cyanocobalamin (Vitamin B-12) 500 Mcg Tablet) 2,500 mcg PO DAILY [facility] Last Admin: 09/24/24 07:46 Dose: 2,500 mcg Dextrose (Dextrose 50 % 25 Gm/50 Ml Syringe) 25 gm IVPUSH Q15M PRN; Protocol PRN Reason: per Hypoglycemia Standing Ord. Diltiazem HCl (Diltiazem Hcl Cd 180 Mg Cap.Er.24h) 180 mg PO DAILY [facility]; Protocol Last Admin: 09/24/24 07:45 Dose: 180 mg Glucose (Glucose Gel 15 Gm Gel..Gram.) 15 gm PO Q15M PRN; Protocol PRN Reason: per Hypoglycemia Standing Ord. Cefazolin Sodium/Dextrose (Ancef) 2 gm in 50 mls @ 100 mls/hr IV Q8H [facility] Last Infusion: 09/24/24 03:36 Dose: Infused Insulin Human Lispro (Insulin Lispro 100 Unit/Ml 3 Ml Vial) 0 unit SUBCUT QIDACHS [facility]; Protocol Last Admin: 09/24/24 07:46 Dose: Not Given Loratadine (Loratadine 10 Mg Tablet) 10 mg PO DAILY [facility] Last Admin: 09/24/24 07:46 Dose: 10 mg Losartan Potassium (Losartan Potassium 50 Mg Tablet) 50 mg PO DAILY [facility]; Protocol Last Admin: 09/24/24 07:46 Dose: 50 mg Magnesium Hydroxide (Milk Of Magnesia 30 Ml Oral.Susp) 30 ml PO DAILY PRN PRN Reason: Constipation Melatonin (Melatonin 3 Mg Tablet) 6 mg PO BEDTIME PRN PRN Reason: Insomnia Last Admin: 09/23/24 21:40 Dose: 6 mg Multivitamins/Vitamin C (Multivitamin Tablet) 1 tab PO DAILY [facility] Last Admin: 09/24/24 07:46 Dose: 1 tab Non-Formulary Medication (Cyclosporine [Restasis]) 1 drop EYE-BOTH Q12H [facility] Sodium Chloride (0.9 % Sodium Chloride Flush 3 Ml Syringe) 3 ml IVFLUSH QSHIFT [facility] Last Admin: 09/24/24 07:47 Dose: 3 ml Vitamin D (Cholecalciferol (Vitamin D3) 25 Mcg Tablet) 50 mcg PO DAILY [facility] Last Admin: 09/24/24 07:45 Dose: 50 mcg Home Medications ?Medication ?Instructions ?Recorded ?Confirmed ?Last Taken ?Type fexofenadine 180 mg tablet 180 mg PO DAILY 11/30/22 09/23/24 Unknown History potassium citrate 99 mg capsule 99 mg PO DAILY 11/30/22 09/23/24 Unknown History acetaminophen 650 mg 1,300 mg PO Q8H PRN Pain 09/23/24 09/23/24 Unknown History tablet,extended release (Arthritis Pain Relief (acetaminophen) ER) allopurinol 300 mg tablet 300 mg PO DAILY 09/23/24 09/23/24 Unknown History alpha lipoic acid 300 mg capsule 300 mg PO DAILY 09/23/24 09/23/24 Unknown History apixaban 5 mg tablet (Eliquis) 5 mg PO BID 09/23/24 09/23/24 09/21/24 History cholecalciferol (vitamin D3) 50 50 mcg PO DAILY 09/23/24 09/23/24 Unknown History mcg (2,000 unit) tablet cyanocobalamin (vitamin B-12) 2,500 mcg PO DAILY 09/23/24 09/23/24 Unknown History 2,500 mcg tablet cyclosporine 0.05 % eye drops in a 1 drp ophthalmic (eye) Q12H 09/23/24 09/23/24 Unknown History dropperette (Restasis) diltiazem HCl 180 mg capsule,24 180 mg PO DAILY 09/23/24 09/23/24 Unknown History hr,extended release glucosamine-chondroitin 500 mg-400 1 tab PO DAILY 09/23/24 09/23/24 Unknown History mg tablet losartan 50 mg tablet 50 mg PO QAM 09/23/24 09/23/24 Unknown History metformin 500 mg tablet,extended 1,000 mg PO BID 09/23/24 09/23/24 Unknown History release 24hr (osmotic) multivitamin 1 tab PO DAILY 09/23/24 09/23/24 Unknown History simvastatin 40 mg tablet 20 mg PO BEDTIME 09/23/24 09/23/24 Unknown History turmeric 400 mg capsule 400 mg PO DAILY 09/23/24 09/23/24 Unknown History Exam Exam Date and Time: 09/24/24 1045 Height,Weight and Vital Signs: Height 5 ft 10 in Weight 109.4 kg Last Vital Signs Temp 97.5 F 09/24/24 06:57 Pulse 85 09/24/24 06:57 Resp 16 09/24/24 06:57 BP 144/74 H 09/24/24 06:57 Pulse Ox 96 09/24/24 06:57 O2 Del Method Room Air 09/24/24 06:57 Pertinent Lab Results Pertinent Lab Results: Laboratory Tests 09/22/24 09/22/24 09/22/24 15:57 19:06 21:33 WBC 16.8 H RBC 4.41 L Hgb 14.1 Hct 40.1 L MCV 90.9 MCH 32.0 MCHC 35.2 RDW 13.3 Plt Count 352 MPV 10.3 Immature Gran % (Auto) 0.5 H Neut % (Auto) 89.1 H Lymph % (Auto) 3.5 L [place] % (Auto) 6.7 Eos % (Auto) 0.0 Baso % (Auto) 0.2 Lymph # (Auto) 0.6 L [place] # (Auto) 1.1 Eos # (Auto) 0.0 Baso # (Auto) 0.0 Abs Immat Gran (auto) 0.08 H Absolute Neuts (auto) 15.0 H Absolute Nucleated RBC 0.000 Nucleated RBC % (auto) 0.0 ESR 83 H PT 18.8 H INR 1.6 H Sodium 136 Potassium 4.5 Chloride 99 Carbon Dioxide 24 Anion Gap 18 BUN 30 H Creatinine 1.33 Estim Creat Clear Calc 58.5 Estimated GFR 52 POC Glucose 248 H Random Glucose 208 H Lactic Acid 1.8 Uric Acid 4.2 Calcium 10.2 Magnesium 2.0 Total Bilirubin 1.7 H AST 50 H ALT 41 H Alkaline Phosphatase 96 Total Creatine Kinase 379 H C-Reactive Protein 32.93 H Total Protein 8.0 Albumin 4.1 Urine Color Dark Yellow Urine Appearance Cloudy Urine pH 5.0 Ur Specific [place] 1.025 Urine Protein 100 (2+) H Urine Glucose (UA) 100 H Urine Ketones 15 Urine Blood Moderate (2+) H Urine Nitrite Negative Ur Leukocyte Esterase Negative Urine RBC 6-10 H Urine WBC 0-5 Ur Squamous Epith Cells 11-20 Urine Bacteria None Seen Hyaline Casts 6-10 Granular Casts Present Synovial Source Synovial WBC Synovial RBC Synovial Neutrophils Synovial Lymphocytes Synovial Monocytes Influenza Type A (PCR) NEGATIVE Influenza Type B (PCR) NEGATIVE RSV RNA Qual (PCR) NEGATIVE SARS-CoV-2 RNA (RT-PCR) NEGATIVE 09/23/24 09/23/24 09/23/24 05:55 07:23 08:50 WBC 16.3 H RBC 3.98 L Hgb 12.8 L Hct 36.5 L MCV 91.7 MCH 32.2 MCHC 35.1 RDW 13.2 Plt Count 317 MPV 10.4 Immature Gran % (Auto) Neut % (Auto) Lymph % (Auto) [place] % (Auto) Eos % (Auto) Baso % (Auto) Lymph # (Auto) [place] # (Auto) Eos # (Auto) Baso # (Auto) Abs Immat Gran (auto) Absolute Neuts (auto) Absolute Nucleated RBC 0.000 Nucleated RBC % (auto) 0.0 ESR PT INR Sodium 136 Potassium 4.4 Chloride 102 Carbon Dioxide 22 Anion Gap 16 BUN 38 H Creatinine 1.54 H Estim Creat Clear Calc 50.5 Estimated GFR 44 POC Glucose 172 H Random Glucose 202 H Lactic Acid Uric Acid Calcium 9.6 Magnesium 2.3 Total Bilirubin AST ALT Alkaline Phosphatase Total Creatine Kinase C-Reactive Protein Total Protein Albumin Urine Color Urine Appearance Urine pH Ur Specific [place] Urine Protein Urine Glucose (UA) Urine Ketones Urine Blood Urine Nitrite Ur Leukocyte Esterase Urine RBC Urine WBC Ur Squamous Epith Cells Urine Bacteria Hyaline Casts Granular Casts Synovial Source left knee Synovial WBC 59.410 Synovial RBC 0.008 Synovial Neutrophils 89 Synovial Lymphocytes 4 Synovial Monocytes 7 Influenza Type A (PCR) Influenza Type B (PCR) RSV RNA Qual (PCR) SARS-CoV-2 RNA (RT-PCR) 09/23/24 09/23/24 09/23/24 08:51 12:10 16:26 WBC RBC Hgb Hct MCV MCH MCHC RDW Plt Count MPV Immature Gran % (Auto) Neut % (Auto) Lymph % (Auto) [place] % (Auto) Eos % (Auto) Baso % (Auto) Lymph # (Auto) [place] # (Auto) Eos # (Auto) Baso # (Auto) Abs Immat Gran (auto) Absolute Neuts (auto) Absolute Nucleated RBC Nucleated RBC % (auto) ESR PT INR Sodium Potassium Chloride Carbon Dioxide Anion Gap BUN Creatinine Estim Creat Clear Calc Estimated GFR POC Glucose 169 H 328 H Random Glucose Lactic Acid Uric Acid Calcium Magnesium Total Bilirubin AST ALT Alkaline Phosphatase Total Creatine Kinase C-Reactive Protein Total Protein Albumin Urine Color Urine Appearance Urine pH Ur Specific [place] Urine Protein Urine Glucose (UA) Urine Ketones Urine Blood Urine Nitrite Ur Leukocyte Esterase Urine RBC Urine WBC Ur Squamous Epith Cells Urine Bacteria Hyaline Casts Granular Casts Synovial Source lt knee Synovial WBC 137.580 Synovial RBC 0.045 Synovial Neutrophils 88 Synovial Lymphocytes 5 Synovial Monocytes 7 Influenza Type A (PCR) Influenza Type B (PCR) RSV RNA Qual (PCR) SARS-CoV-2 RNA (RT-PCR) 09/23/24 09/24/24 09/24/24 20:33 06:24 07:12 WBC 17.7 H RBC 3.95 L Hgb 12.6 L Hct 36.3 L MCV 91.9 MCH 31.9 MCHC 34.7 RDW 13.3 Plt Count 369 MPV 10.6 Immature Gran % (Auto) Neut % (Auto) Lymph % (Auto) [place] % (Auto) Eos % (Auto) Baso % (Auto) Lymph # (Auto) [place] # (Auto) Eos # (Auto) Baso # (Auto) Abs Immat Gran (auto) Absolute Neuts (auto) Absolute Nucleated RBC 0.000 Nucleated RBC % (auto) 0.0 ESR PT INR Sodium 137 Potassium 4.2 Chloride 103 Carbon Dioxide 23 Anion Gap 15 BUN 49 H Creatinine 1.65 H Estim Creat Clear Calc 47.1 Estimated GFR 41 POC Glucose 251 H 177 H Random Glucose 187 H Lactic Acid Uric Acid Calcium 9.6 Magnesium Total Bilirubin AST ALT Alkaline Phosphatase Total Creatine Kinase C-Reactive Protein 20.58 H Total Protein Albumin Urine Color Urine Appearance Urine pH Ur Specific [place] Urine Protein Urine Glucose (UA) Urine Ketones Urine Blood Urine Nitrite Ur Leukocyte Esterase Urine RBC Urine WBC Ur Squamous Epith Cells Urine Bacteria Hyaline Casts Granular Casts Synovial Source Synovial WBC Synovial RBC Synovial Neutrophils Synovial Lymphocytes Synovial Monocytes Influenza Type A (PCR) Influenza Type B (PCR) RSV RNA Qual (PCR) SARS-CoV-2 RNA (RT-PCR) Airway Mallampati Class: II TM Dist: >3cm Neck ROM: Full Denture: Upper Heart: S1S2 Lungs: CTAB Assessment and Plan Assessment Anesthesia Assessment: Anesthesia Plan Discussed and Chart Reviewed Final Anesthetic Review Family History of Problems with Anesthesia: No History of Problems with Anesthesia: No NPO: Yes ASA Class: III Final Preanesthetic Review: No Changes in Pt Med Stat, Meds/Allgs Chart Reviewed, Consent Obtained/Reviewed and Anes Risks/Benef Reviewed Patient Risk: Low Procedure Risk: Low Anesthetic Plan Anesthetic Plan: GA and Agree w/ Assess. and Plan Disposition: Standard PACU
--- NOTE | 2024-09-24 10:56 | MHC.SHP ---
Pre-Procedural Eval Section A - 24 Hr Update-Section A only Date of Service: 09/24/24 The patient is an INPATIENT: Yes Changes since office visit: No Cold of Flu in the past 2 weeks, No New Medical Problems, No Changes in Medication and No Patient answered all questions The patient has been examined within 24 hours of the surgical procedure. The History & Physical has been completed within 30 days and I have reviewed it.: Yes Section B - Complete if H&P > 30 days Chief Complaint: septic arthritis Allergies: Allergies Allergy/AdvReac Type Severity Reaction Status Date / Time shrimp Allergy Anaphylaxis Verified 09/23/24 12:41 Plan I have reviewed the history and physical and performed a pertinent physical examination on my patient. No changes have occurred unless specified. Time Spent With Patient Time: Total time managing care of this patient today ____ minutes.
--- NOTE | 2024-09-24 11:48 | P.BOP_ITS ---
Brief Operative Note Date of Service: 09/24/24 Pre-op diagnosis: super infected pseudogout left knee Post-op diagnosis: same Procedure: Arthroscpoc debridement and lavage left knee Implants: none Surgeon: Vern Cervantes MD Anesthesia: GLMA and local Was an Loss Prevention Specialist used for this Procedure?: Yes Loss Prevention Specialist: Mustapha Cordero Estimated blood loss (mL): 5 IV fluids (mL): 40 Pathology: none sent Condition: stable Disposition: PACU
[2024-09-24 12:55] LABS: Glucose, Whole Blood 228 mg/dL (60-115)
[2024-09-24] MEDS: oxyCODONE HCl Immed Release 5 MG TABLET PO ×2 (14:10→21:00)
[2024-09-24 16:28] LABS: Glucose, Whole Blood 303 mg/dL (60-115)
[2024-09-24] MEDS: Insulin Lispro 100 UNIT/ML 3 ML VIAL SUBCUT ×2 (16:48→21:00)
[2024-09-24 20:38] LABS: Glucose, Whole Blood 251 mg/dL (60-115)
[2024-09-24] MEDS: Atorvastatin Calcium 10 MG TABLET PO (21:00)
[2024-09-25] MEDS: ceFAZolin Sodium/Dextrose,Iso 2 GM/50 ML PIGGYBACK IV ×3 (03:20→21:08)
[2024-09-25 03:53] VITALS: BP 165/79; PULSE 98; RESP 16; TEMP 36.7; O2SAT 96
[2024-09-25 06:27] LABS: Hematocrit 36.1 % (42.0-52.0); Hemoglobin 12.1 g/dl (14.0-18.0); Mean Corpuscular HGB Conc 33.5 g/dl (31.0-36.0); Mean Corpuscular Hemoglobin 31.1 pg (27.0-33.0); Mean Corpuscular Volume 92.8 fL (80.0-98.0); Mean Platelet Volume 10.7 fL (9.4-12.4); Platelet Count 345 X10*3/uL (160-400); Red Blood Count 3.89 X10*6/uL (4.60-5.80); Red Cell Distribution Width 13.5 % (11.0-16.0); White Blood Count 11.8 X10*3/uL (4.8-10.8)
[2024-09-25 06:28] LABS: Anion Gap 15 (12-20); Blood Urea Nitrogen 47 mg/dL (9-16); Calcium 9.1 mg/dL (8.4-10.2); Carbon Dioxide 23 mmol/L (22-29); Chloride 103 mmol/L (96-108); Creatinine Clr Calc Pharmacy 55.5; Estimated Glomerular Filt Rate 49; Glucose Random 182 mg/dL (60-115); Potassium 4.6 mmol/L (3.3-5.1); Sodium 136 mmol/L (135-145)
--- NOTE | 2024-09-25 07:00 | CA_ITS ---
Transthoracic Echocardiogram Patient (Last, First, Middle): Rayo Veliz S Gender: Male Date of : 1945 Age: 78 Procedure Date: 09/25/2024 Procedure Type: Transthoracic Echocardiogram Location: S3E Height: 177.8 cm Weight: 109.32 kg BSA: 2.26 m2 Heart Rate: 104 bpm BP: 144 / 74 mmHg Steam Brush Operator: SB Referring MD: Jonathan Chaudhari MD Drawing Box Tender: William Tejada MD Symptoms: bacteremia Study Quality: Technically Difficult ECG Rhythm: Tachycardia Conclusions: - 1. Technically limited study 2. Vegetations can not be ruled out on this study 3. Normal LV ejection fraction 65-70% with impaired relaxation filling pattern 4. Cardiac valvular Dopplers within normal limits Findings Procedure Information Contrast agent, definity, is being given per protocol without apparent complications. The quality of the study was technically difficult. The study quality is limited by patients body habitus and lung artifact. Left Ventricle Normal left ventricular size, thickness, and systolic function. The visually estimated ejection fraction is between 65-70%. Spectral Doppler is indicative of an impaired relaxation filling pattern. Right Ventricle The right ventricle was not well visualized. Atria The left atrium was not well visualized. Interatrial shunt cannot be excluded. The right atrium was not well visualized. Aortic Valve The aortic valve was not well visualized. There is no aortic valve stenosis. There is no aortic valve regurgitation. Mitral Valve The mitral valve was not well visualized. There is trace mitral valve regurgitation. There is no mitral valve stenosis. Pulmonic Valve The pulmonic valve was not well visualized. Tricuspid Valve The tricuspid valve was not well visualized. Tricuspid regurgitation envelope is inadequate for calculation of right ventricular systolic pressure. Normal right atrial pressure. Great Vessels The aorta was not well visualized. The pulmonary artery was not well visualized. Venous The inferior vena cava was not well visualized. Pericardium/Pleural The pericardium was not well visualized. Prior Study Comparison No prior study available for comparison. Measurements 2D Linear Measurements IVSd: 0.92 0.6-0.9/0.6-1.0 cm LVIDd: 5.29 3.9-5.3/4.2-5.9 cm LVIDd Index: 2.34 2.4-3.2/2.2-3.1 cm/m2 LVIDs: 3.22 2.0-3.6 cm LVPWd: 0.93 0.7-1.1 cm LA Diam: 2.40 2.7-3.8/3.0-4.0 cm LAIDs Index: 1.06 1.5-2.3 cm/m2 LV Mass: 224.28 67-162/88-224 g LV Mass Index: 99.24 43-95/49-115 g/m2 LVOT Diam: 2.30 3.0+(-)1.3 cm 2D Systolic Function EF 4C: 69.80 >55% EF 2C: 63.80 >55% EF BiP: 67.10 >55% Mitral Valve MV Pk E: 0.62 MV PK A: 0.97 MV Decel Time: 246.00 E/A: 0.60 E'Lateral: 6.64 E'Medial: 5.44 E/E' Med: 11.30 E/E' Lat: 9.30 PHT: 72.00 MVA PHT: 3.06 Decel Glasscock: 2.50 Aortic Valve AoV Pk Jason: 1.75 AoV Mn Jason: 1.29 AoV VTI: 0.30 AoV Pk Grad: 12.00 Aov Mn Grad: 8.00 JANETTE Cont.VTI: 2.34 LVOT LVOT Pk Jason: 1.01 LVOT Mn Jason: 0.63 LVOT VTI: 0.17 LVOT Pk Grad: 4.00 LVOT Mn Grad: 2.00 LVOT Diam: 2.30 LVOT Area: 4.15 Diastolic Function MV Pk E: 0.62 MV Pk A: 0.97 E/A: 0.60 E'Medial: 5.44 E/E' Med: 11.30 E' Laterial: 6.64 E/E' Lat: 9.30 Right Ventricle TAPSE (mm): 21.40 TVS' Jason: 13.30 Tricuspid Valve RA Press: 3.00 Great Vessels Aorta Sinus of Valsalva: 3.30 2.0-3.5 cm Pulmonary Valve PV Pk Jason: 1.23 Peak PV Grad: 6.00 Updated in Other Vendor System with Status of Final William Tejada MD electronically signed on 09/25/2024 3:11:36 PM with status of Final
[2024-09-25 07:13] VITALS: BP 132/82; PULSE 94; RESP 16; TEMP 36.6; O2SAT 95
[2024-09-25 07:24] LABS: Glucose, Whole Blood 181 mg/dL (60-115)
[2024-09-25] MEDS: Insulin Lispro 100 UNIT/ML 3 ML VIAL SUBCUT ×4 (08:04→21:05)
[2024-09-25] MEDS: allopurinoL 300 MG TABLET PO (08:04)
[2024-09-25] MEDS: Cyanocobalamin (Vitamin B-12) 500 MCG TABLET 2500 MCG PO (08:04)
[2024-09-25] MEDS: Loratadine 10 MG TABLET PO (08:04)
[2024-09-25] MEDS: dilTIAZem HCL CD 180 MG CAP.ER.24H PO (08:04)
[2024-09-25] MEDS: Losartan Potassium 50 MG TABLET PO (08:04)
[2024-09-25] MEDS: 0.9 % Sodium Chloride Flush 3 ML SYRINGE IVFLUSH ×3 (08:05→21:04)
[2024-09-25] MEDS: Cholecalciferol (Vitamin D3) 25 MCG TABLET 50 MCG PO (08:05)
[2024-09-25] MEDS: Multivitamin TABLET 1 TAB PO (08:05)
[2024-09-25 09:22] VITALS: BP 132/82; PULSE 94; O2SAT 95
--- NOTE | 2024-09-25 09:40 | P.PNIM_ITS ---
Subjective Subjective Date of Service: 09/25/24 Interval History: pain improved Physical Exam 2 Vital Signs: Vital Signs: Last Vital Signs Temp 97.8 F 09/25/24 07:13 Pulse 94 09/25/24 09:22 Resp 16 09/25/24 07:13 BP 132/82 09/25/24 09:22 Pulse Ox 95 09/25/24 09:22 O2 Del Method Room Air 09/25/24 07:13 O2 Flow Rate 6 09/24/24 12:09 BMI result Body Mass Index 34.6 Const: General: cooperative, healthy appearing, comfortable and no acute distress Extrem: Other: Left knee skin intact, no redness Moderate joint effusion Pulses present Objective Data Active Medications Acetaminophen (Acetaminophen 325 Mg Tablet) 650 mg PO Q6H PRN PRN Reason: Pain, Mild 1-3,fever,headache Allopurinol (Allopurinol 300 Mg Tablet) 300 mg PO DAILY [facility] Last Admin: 09/25/24 08:04 Dose: 300 mg Documented By: MELITON Atorvastatin Calcium (Atorvastatin Calcium 10 Mg Tablet) 10 mg PO BEDTIME [facility] Last Admin: 09/24/24 21:00 Dose: 10 mg Documented By: ADIN Calcium Carbonate (Calcium Carbonate 750 Mg Tab.Chew) 750 mg PO Q4H PRN PRN Reason: Heartburn Cyanocobalamin (Cyanocobalamin (Vitamin B-12) 500 Mcg Tablet) 2,500 mcg PO DAILY [facility] Last Admin: 09/25/24 08:04 Dose: 2,500 mcg Documented By: MELITON Dextrose (Dextrose 50 % 25 Gm/50 Ml Syringe) 25 gm IVPUSH Q15M PRN; Protocol PRN Reason: per Hypoglycemia Standing Ord. Diltiazem HCl (Diltiazem Hcl Cd 180 Mg Cap.Er.24h) 180 mg PO DAILY [facility]; Protocol Last Admin: 09/25/24 08:04 Dose: 180 mg Documented By: MELITON Glucose (Glucose Gel 15 Gm Gel..Gram.) 15 gm PO Q15M PRN; Protocol PRN Reason: per Hypoglycemia Standing Ord. Cefazolin Sodium/Dextrose (Ancef) 2 gm in 50 mls @ 100 mls/hr IV Q8H [facility] Last Infusion: 09/25/24 03:50 Dose: Infused Documented By: ADIN Insulin Human Lispro (Insulin Lispro 100 Unit/Ml 3 Ml Vial) 0 unit SUBCUT QIDACHS [facility]; Protocol Last Admin: 09/25/24 08:04 Dose: 2 unit Documented By: MELITON Loratadine (Loratadine 10 Mg Tablet) 10 mg PO DAILY [facility] Last Admin: 09/25/24 08:04 Dose: 10 mg Documented By: MELITON Losartan Potassium (Losartan Potassium 50 Mg Tablet) 50 mg PO DAILY [facility]; Protocol Last Admin: 09/25/24 08:04 Dose: 50 mg Documented By: MELITON Magnesium Hydroxide (Milk Of Magnesia 30 Ml Oral.Susp) 30 ml PO DAILY PRN PRN Reason: Constipation Melatonin (Melatonin 3 Mg Tablet) 6 mg PO BEDTIME PRN PRN Reason: Insomnia Last Admin: 09/23/24 21:40 Dose: 6 mg Documented By: ADIN Multivitamins/Vitamin C (Multivitamin Tablet) 1 tab PO DAILY [facility] Last Admin: 09/25/24 08:05 Dose: 1 tab Documented By: MELITON Naloxone HCl (Naloxone Hcl 0.4 Mg/Ml Vial) 0.04 mg IVPUSH Q5M PRN PRN Reason: Excessive sedation or RR < 8 Non-Formulary Medication (Cyclosporine [Restasis]) 1 drop EYE-BOTH Q12H [facility] Oxycodone HCl (Oxycodone Hcl Immed Release 5 Mg Tablet) 5 mg PO Q4H PRN PRN Reason: Pain, Moderate(Pain Scale 4-6) Last Admin: 09/24/24 21:00 Dose: 5 mg Documented By: ADIN Sodium Chloride (0.9 % Sodium Chloride Flush 3 Ml Syringe) 3 ml IVFLUSH QSHIFT [facility] Last Admin: 09/25/24 08:05 Dose: 3 ml Documented By: MELITON Vitamin D (Cholecalciferol (Vitamin D3) 25 Mcg Tablet) 50 mcg PO DAILY [facility] Last Admin: 09/25/24 08:05 Dose: 50 mcg Documented By: MELITON Labs 09/25/24 05:47 09/25/24 05:47 Labs: Laboratory Results - last 24 hr 09/24/24 09/24/24 09/24/24 10:19 12:52 16:23 MCV MCH MCHC RDW Plt Count MPV Absolute Nucleated RBC Nucleated RBC % (auto) Anion Gap Estim Creat Clear Calc Estimated GFR POC Glucose 228 H 303 H Random Glucose Calcium Blood Type A Positive Antibody Screen NEGATIVE 09/24/24 09/25/24 09/25/24 20:33 05:47 07:17 MCV 92.8 MCH 31.1 MCHC 33.5 RDW 13.5 Plt Count 345 MPV 10.7 Absolute Nucleated RBC 0.000 Nucleated RBC % (auto) 0.0 Anion Gap 15 Estim Creat Clear Calc 55.5 Estimated GFR 49 POC Glucose 251 H 181 H Random Glucose 182 H Calcium 9.1 Blood Type Antibody Screen Microbiology Microbiology Results: Microbiology 09/24/24 06:23 Blood Culture - Preliminary Blood - Venous No growth after 24 hours. 09/24/24 06:24 Blood Culture - Preliminary Blood - Venous No growth after 24 hours. 09/23/24 08:50 Gram Stain - Final Knee aspirate Anaerobic Culture - Preliminary Culture in progress. Gross Specimen Examination - Final Fluid Crystals - Final Joint Fluid Culture - Final Staphylococcus aureus 09/23/24 08:51 Gram Stain - Final Knee aspirate Anaerobic Culture - Preliminary Culture in progress. Gross Specimen Examination - Final Fluid Crystals - Final Joint Fluid Culture - Final Staphylococcus aureus 09/22/24 15:58 Blood Culture - Final Blood - Venous Staphylococcus aureus 09/22/24 15:57 Blood Culture - Final Blood - Venous Staphylococcus aureus Assessment and Plan (1) Fall: Status: Acute Plan 78M PMH DM, gout, obeisty, pafib on eliquis, CKD III, latent TB, HTN, presented with fall and left knee pain and swelling Left knee pain and swelling initially Inflammatory (psuedogout) presented with secondary septic arthritis complicated by MSSA bacteremia IV cefazolin, ortho following - s/p washout 09/24/24, WBAT, PT holding Eliquis in case additional intervention needed ID eval, follow up repeat cultures (no growth since 09/24/24), echo Fall Mechanical due to above, no evidence of rhabdomyolysis or significant trauma Diabetes Insulin sliding scale Paroxysmal AFib Currently in sinus, holding Eliquis Obesity Weight loss recommended CKD 3 Stable DVT prophylaxis-mechanical in case further intevention needed Full code reason for continued hospitalization:bacteremia Quality Stroke Does the patient have a stroke diagnosis?: No VTE Prior VTE?: No VTE Risk Level:: Medical - moderate - high VTE Device Contraindication: Treatment Not Indicated VTE Drug Contraindication: N/A - Med Ordered
--- NOTE | 2024-09-25 09:59 | PM.PNORT ---
Subjective Subjective Date of Service: 09/25/24 Interval history: POD 1 s/p Lt knee As lavage 09/24/24 No overnight events resting in bed, he tried to work with Pt but has some pain and diff with moving Physical Exam Vital Signs: Vital Signs: Last Vital Signs Temp 97.8 F 09/25/24 07:13 Pulse 94 09/25/24 09:22 Resp 16 09/25/24 07:13 BP 132/82 09/25/24 09:22 Pulse Ox 95 09/25/24 09:22 O2 Del Method Room Air 09/25/24 07:13 O2 Flow Rate 6 09/24/24 12:09 BMI result Body Mass Index 34.6 Const: General: cooperative, healthy appearing and no acute distress Resp: Effort & Inspection: normal respiratory effort and able to speak in complete sentences Cardio: Rate: regular rate Peripheral pulses: Peripheral pulses 2+ throughout GI: Palpation (GI): Soft to palpation Skin: General skin exam: no rashes or lesions noted Extrem: Other: Left knee incision clean, dry and intact Pain with ROM NVI Procedures Date of Service Date of Service: 09/25/24 Progress Note: A&P Assessment and plan (1) Arthritis, septic, knee: Status: Acute (2) Pseudogout of left knee: Status: Acute Plan Cont IV abx PT wbat rom Dispo per PT recommendations Time Spent With Patient Time: Total time managing care of this patient today ____ minutes. Quality Stroke Does the patient have a stroke diagnosis?: No VTE Prior VTE?: No VTE Risk Level:: Medical - moderate - high VTE Device Contraindication: Treatment Not Indicated VTE Drug Contraindication: N/A - Med Ordered
[2024-09-25 11:37] LABS: Glucose, Whole Blood 193 mg/dL (60-115)
--- NOTE | 2024-09-25 14:30 | MHC.CM.PN ---
physical therapy receommneding str pt will need 6 weeks antibiotics dc plan str
[2024-09-25 15:18] VITALS: BP 142/73; PULSE 103; RESP 18; TEMP 36.7; O2SAT 97
[2024-09-25 16:21] LABS: Glucose, Whole Blood 239 mg/dL (60-115)
[2024-09-25 19:10] VITALS: BP 162/74; PULSE 102; RESP 15; TEMP 36.9; O2SAT 96
[2024-09-25 20:48] LABS: Glucose, Whole Blood 228 mg/dL (60-115)
[2024-09-25] MEDS: Atorvastatin Calcium 10 MG TABLET PO (21:03)
[2024-09-25] MEDS: Acetaminophen 325 MG TABLET 650 MG PO (23:04)
[2024-09-25] MEDS: Melatonin 3 MG TABLET 6 MG PO (23:05)
[2024-09-25 23:28] VITALS: BP 138/66; PULSE 101; RESP 16; TEMP 36.4; O2SAT 96
[2024-09-26] VITALS (8 sets, daily range): BP systolic 129–170; BP diastolic 65–85; PULSE 91–111; RESP 16–18; TEMP 36.5–37.9; O2SAT 94–98
[2024-09-26] MEDS: ceFAZolin Sodium/Dextrose,Iso 2 GM/50 ML PIGGYBACK IV ×3 (03:34→21:36)
[2024-09-26 03:42] LABS: Glucose, Whole Blood 199 mg/dL (60-115)
[2024-09-26 07:18] LABS: Glucose, Whole Blood 223 mg/dL (60-115)
[2024-09-26 07:27] LABS: Hematocrit 35.8 % (42.0-52.0); Mean Corpuscular HGB Conc 33.5 g/dl (31.0-36.0); Mean Corpuscular Hemoglobin 31.2 pg (27.0-33.0); Mean Platelet Volume 10.8 fL (9.4-12.4); Platelet Count 340 X10*3/uL (160-400); Red Blood Count 3.85 X10*6/uL (4.60-5.80); Red Cell Distribution Width 13.2 % (11.0-16.0); White Blood Count 12.7 X10*3/uL (4.8-10.8)
--- NOTE | 2024-09-26 07:39 | PM.PNORT ---
Subjective Subjective Date of Service: 09/26/24 Interval history: POD2 s/p Lt knee As lavage 09/24/24 No overnight events resting in bed Attempted to work with Pt - C/O pain and weakness, difficult to motivate out of bed Physical Exam Vital Signs: Vital Signs: Last Vital Signs Temp 97.7 F 09/26/24 07:02 Pulse 95 09/26/24 07:02 Resp 18 09/26/24 07:02 BP 138/65 09/26/24 07:02 Pulse Ox 95 09/26/24 07:02 O2 Del Method Room Air 09/26/24 07:02 O2 Flow Rate 6 09/24/24 12:09 BMI result Body Mass Index 34.6 Const: General: cooperative, healthy appearing and no acute distress Resp: Effort & Inspection: normal respiratory effort and able to speak in complete sentences Cardio: Rate: regular rate Peripheral pulses: Peripheral pulses 2+ throughout GI: Palpation (GI): Soft to palpation Skin: General skin exam: no rashes or lesions noted Extrem: Other: Left knee incision clean, dry and intact. No active drainage, sutures intact. NVI. Procedures Date of Service Date of Service: 09/26/24 Progress Note: A&P Assessment and plan (1) Arthritis, septic, knee: Status: Acute (2) Pseudogout of left knee: Status: Acute Plan Cont IV abx PT wbat rom Dispo per PT recommendations Time Spent With Patient Time: Total time managing care of this patient today ____ minutes. Quality Stroke Does the patient have a stroke diagnosis?: No VTE Prior VTE?: No VTE Risk Level:: Medical - moderate - high VTE Device Contraindication: Treatment Not Indicated VTE Drug Contraindication: N/A - Med Ordered
[2024-09-26 07:46] LABS: Anion Gap 13 (12-20); Blood Urea Nitrogen 37 mg/dL (9-16); Calcium 9.2 mg/dL (8.4-10.2); Carbon Dioxide 26 mmol/L (22-29); Chloride 100 mmol/L (96-108); Creatinine Clr Calc Pharmacy 61.2; Estimated Glomerular Filt Rate 55; Glucose Random 203 mg/dL (60-115); Magnesium 1.9 mg/dL (1.6-2.6); Potassium 4.2 mmol/L (3.3-5.1); Sodium 135 mmol/L (135-145)
[2024-09-26] MEDS: Cyanocobalamin (Vitamin B-12) 500 MCG TABLET 2500 MCG PO (07:58)
[2024-09-26] MEDS: Insulin Lispro 100 UNIT/ML 3 ML VIAL SUBCUT ×4 (07:58→21:39)
[2024-09-26] MEDS: Multivitamin TABLET 1 TAB PO (08:00)
[2024-09-26] MEDS: allopurinoL 300 MG TABLET PO (08:00)
[2024-09-26] MEDS: Loratadine 10 MG TABLET PO (08:00)
[2024-09-26] MEDS: Losartan Potassium 50 MG TABLET PO (08:00)
[2024-09-26] MEDS: dilTIAZem HCL CD 180 MG CAP.ER.24H PO (08:00)
[2024-09-26] MEDS: Cholecalciferol (Vitamin D3) 25 MCG TABLET 50 MCG PO (08:00)
[2024-09-26] MEDS: 0.9 % Sodium Chloride Flush 3 ML SYRINGE IVFLUSH ×2 (08:02→17:30)
--- NOTE | 2024-09-26 09:16 | P.PNIM_ITS ---
Subjective Subjective Date of Service: 09/26/24 Interval History: Has some pain in the knee, no fever, last blood BCx negative at 48 hrs Physical Exam 2 Vital Signs: Vital Signs: Last Vital Signs Temp 97.7 F 09/26/24 07:02 Pulse 95 09/26/24 07:02 Resp 18 09/26/24 07:02 BP 138/65 09/26/24 07:02 Pulse Ox 95 09/26/24 07:02 O2 Del Method Room Air 09/26/24 07:02 O2 Flow Rate 6 09/24/24 12:09 BMI result Body Mass Index 34.6 Const: Other: General: AO X 3, no acute distress Resp: CTA bilateral CVS: S1,S2,RRR GI: +BS, NT, no distention Skin: No rash Neuro: motor grossly intact Psych: appropriate affect Extrem: Other: Left knee skin intact, no redness Moderate joint effusion Pulses present Objective Data Active Medications Acetaminophen (Acetaminophen 325 Mg Tablet) 650 mg PO Q6H PRN PRN Reason: Pain, Mild 1-3,fever,headache Last Admin: 09/25/24 23:04 Dose: 650 mg Documented By: DEXTER Comments: per pt request Allopurinol (Allopurinol 300 Mg Tablet) 300 mg PO DAILY [facility] Last Admin: 09/26/24 08:00 Dose: 300 mg Documented By: BOUCHRA Atorvastatin Calcium (Atorvastatin Calcium 10 Mg Tablet) 10 mg PO BEDTIME [facility] Last Admin: 09/25/24 21:03 Dose: 10 mg Documented By: DEXTER Calcium Carbonate (Calcium Carbonate 750 Mg Tab.Chew) 750 mg PO Q4H PRN PRN Reason: Heartburn Cyanocobalamin (Cyanocobalamin (Vitamin B-12) 500 Mcg Tablet) 2,500 mcg PO DAILY [facility] Last Admin: 09/26/24 07:58 Dose: 2,500 mcg Documented By: BOUCHRA Dextrose (Dextrose 50 % 25 Gm/50 Ml Syringe) 25 gm IVPUSH Q15M PRN; Protocol PRN Reason: per Hypoglycemia Standing Ord. Diltiazem HCl (Diltiazem Hcl Cd 180 Mg Cap.Er.24h) 180 mg PO DAILY [facility]; Protocol Last Admin: 09/26/24 08:00 Dose: 180 mg Documented By: BOUCHRA Glucose (Glucose Gel 15 Gm Gel..Gram.) 15 gm PO Q15M PRN; Protocol PRN Reason: per Hypoglycemia Standing Ord. Cefazolin Sodium/Dextrose (Ancef) 2 gm in 50 mls @ 100 mls/hr IV Q8H [facility] Last Infusion: 09/26/24 04:04 Dose: Infused Documented By: DEXTER Insulin Human Lispro (Insulin Lispro 100 Unit/Ml 3 Ml Vial) 0 unit SUBCUT QIDACHS [facility]; Protocol Last Admin: 09/26/24 07:58 Dose: 4 unit Documented By: BOUCHRA Loratadine (Loratadine 10 Mg Tablet) 10 mg PO DAILY [facility] Last Admin: 09/26/24 08:00 Dose: 10 mg Documented By: BOUCHRA Losartan Potassium (Losartan Potassium 50 Mg Tablet) 50 mg PO DAILY [facility]; Protocol Last Admin: 09/26/24 08:00 Dose: 50 mg Documented By: BOUCHRA Magnesium Hydroxide (Milk Of Magnesia 30 Ml Oral.Susp) 30 ml PO DAILY PRN PRN Reason: Constipation Melatonin (Melatonin 3 Mg Tablet) 6 mg PO BEDTIME PRN PRN Reason: Insomnia Last Admin: 09/25/24 23:05 Dose: 6 mg Documented By: DEXTER Multivitamins/Vitamin C (Multivitamin Tablet) 1 tab PO DAILY [facility] Last Admin: 09/26/24 08:00 Dose: 1 tab Documented By: BOUCHRA Naloxone HCl (Naloxone Hcl 0.4 Mg/Ml Vial) 0.04 mg IVPUSH Q5M PRN PRN Reason: Excessive sedation or RR < 8 Non-Formulary Medication (Cyclosporine [Restasis]) 1 drop EYE-BOTH Q12H [facility] Oxycodone HCl (Oxycodone Hcl Immed Release 5 Mg Tablet) 5 mg PO Q4H PRN PRN Reason: Pain, Moderate(Pain Scale 4-6) Last Admin: 09/24/24 21:00 Dose: 5 mg Documented By: ADIN Sodium Chloride (0.9 % Sodium Chloride Flush 3 Ml Syringe) 3 ml IVFLUSH QSHIFT [facility] Last Admin: 09/26/24 08:02 Dose: 3 ml Documented By: BOUCHRA Vitamin D (Cholecalciferol (Vitamin D3) 25 Mcg Tablet) 50 mcg PO DAILY [facility] Last Admin: 09/26/24 08:00 Dose: 50 mcg Documented By: BOUCHRA Labs 09/26/24 07:14 09/26/24 07:14 Labs: Laboratory Results - last 24 hr 09/25/24 09/25/24 09/25/24 11:30 16:17 20:39 MCV MCH MCHC RDW Plt Count MPV Absolute Nucleated RBC Nucleated RBC % (auto) Anion Gap Estim Creat Clear Calc Estimated GFR POC Glucose 193 H 239 H 228 H Random Glucose Calcium Magnesium 09/26/24 09/26/24 09/26/24 03:39 07:00 07:14 MCV 93.0 MCH 31.2 MCHC 33.5 RDW 13.2 Plt Count 340 MPV 10.8 Absolute Nucleated RBC 0.000 Nucleated RBC % (auto) 0.0 Anion Gap 13 Estim Creat Clear Calc 61.2 Estimated GFR 55 POC Glucose 199 H 223 H Random Glucose 203 H Calcium 9.2 Magnesium 1.9 Microbiology Microbiology Results: Microbiology 09/23/24 08:50 Gram Stain - Final Knee aspirate Anaerobic Culture - Preliminary Culture in progress. Gross Specimen Examination - Final Fluid Crystals - Final Joint Fluid Culture - Final Staphylococcus aureus 09/23/24 08:51 Gram Stain - Final Knee aspirate Anaerobic Culture - Preliminary Culture in progress. Gross Specimen Examination - Final Fluid Crystals - Final Joint Fluid Culture - Final Staphylococcus aureus 09/24/24 06:23 Blood Culture - Preliminary Blood - Venous No growth after 48 hours. 09/24/24 06:24 Blood Culture - Preliminary Blood - Venous No growth after 48 hours. 09/22/24 15:58 Blood Culture - Final Blood - Venous Staphylococcus aureus 09/22/24 15:57 Blood Culture - Final Blood - Venous Staphylococcus aureus Assessment and Plan (1) Fall: Status: Acute Plan 78M PMH DM, gout, obeisty, pafib on eliquis, CKD III, latent TB, HTN, presented with fall and left knee pain and swelling Left knee pain and swelling initially thought to be Inflammatory (psuedogout), but turned out to be septic arthritis with MSSA bacteremia s/p washout 09/24/24, WBAT, PT cefazolin, ortho following - holding Eliquis in case additional intervention needed repeat culture negative at 48s hours echo no vegetations ID eval pending requesting a PICC line for halfway Abx Fall Mechanical due to above, no evidence of rhabdomyolysis or significant trauma Diabetes Insulin sliding scale Paroxysmal AFib Currently in sinus, holding Eliquis as above Obesity Weight loss recommended CKD 3 Stable DVT prophylaxis-mechanical in case further intevention needed, add heparin SC Full code reason for continued hospitalization:bacteremia Quality Stroke Does the patient have a stroke diagnosis?: No VTE Prior VTE?: No VTE Risk Level:: Medical - moderate - high VTE Device Contraindication: Treatment Not Indicated VTE Drug Contraindication: N/A - Med Ordered
[2024-09-26] MEDS: Heparin Sodium,Porcine 5,000 UNIT/ML VIAL 5000 UNIT SUBCUT ×2 (10:23→21:36)
[2024-09-26] MEDS: oxyCODONE HCl Immed Release 5 MG TABLET PO ×2 (10:23→14:32)
[2024-09-26 11:12] LABS: Glucose, Whole Blood 252 mg/dL (60-115)
--- NOTE | 2024-09-26 12:41 | MHC.CM.PN ---
PICC line insertion is pending. A bed offer has been received from [facility] for for IV ABX and strengthening. Patient will transport via BLS to [facility].
[2024-09-26] MEDS: Acetaminophen 325 MG TABLET 650 MG PO (16:31)
[2024-09-26 16:38] LABS: Glucose, Whole Blood 236 mg/dL (60-115)
--- NOTE | 2024-09-26 17:09 | W.PM.IDCN ---
History of Present Illness Data of Consult Service Date: 09/25/24 Requesting physician: Jonathan Chaudhari Primary Care Provider: Chiara Callaway PA-C HPI Reason for consult: left knee pain He presents with left knee redness and pain. Knee 09/23 and blood cultures 09/22 grew MSSA. He did receive washout. Review of Systems Review of Systems: Yes all other systems are reviewed and are negative [facility] Past Medical History Medical History (Updated 09/26/24 @ 17:13 by Lanny Pelletier MD) MSSA bacteremia Hyperlipidemia Gout History of kidney stones Diabetes mellitus Benign essential hypertension OA (osteoarthritis) Iritis Chronic kidney disease, stage 3b Sensorineural hearing loss Family History Family history: reviewed and not pertinent Social History Social History Household Members: None Housing: House Do you presently have visiting nurse or other home services: No Patient Tobacco Use Status: Never used Tobacco e-Cigarette/Vaping Use: Former Use service: Yes Meds Allergies Allergy/AdvReac Type Severity Reaction Status Date / Time shrimp Allergy Anaphylaxis Verified 09/23/24 12:41 Active Medications: Current Medications Acetaminophen (Acetaminophen 325 Mg Tablet) 650 mg PO Q6H PRN PRN Reason: Pain, Mild 1-3,fever,headache Last Admin: 09/26/24 16:31 Dose: 650 mg Allopurinol (Allopurinol 300 Mg Tablet) 300 mg PO DAILY [facility] Last Admin: 09/26/24 08:00 Dose: 300 mg Atorvastatin Calcium (Atorvastatin Calcium 10 Mg Tablet) 10 mg PO BEDTIME [facility] Last Admin: 09/25/24 21:03 Dose: 10 mg Calcium Carbonate (Calcium Carbonate 750 Mg Tab.Chew) 750 mg PO Q4H PRN PRN Reason: Heartburn Cyanocobalamin (Cyanocobalamin (Vitamin B-12) 500 Mcg Tablet) 2,500 mcg PO DAILY [facility] Last Admin: 09/26/24 07:58 Dose: 2,500 mcg Dextrose (Dextrose 50 % 25 Gm/50 Ml Syringe) 25 gm IVPUSH Q15M PRN; Protocol PRN Reason: per Hypoglycemia Standing Ord. Diltiazem HCl (Diltiazem Hcl Cd 180 Mg Cap.Er.24h) 180 mg PO DAILY [facility]; Protocol Last Admin: 09/26/24 08:00 Dose: 180 mg Glucose (Glucose Gel 15 Gm Gel..Gram.) 15 gm PO Q15M PRN; Protocol PRN Reason: per Hypoglycemia Standing Ord. Heparin Sodium (Porcine) (Heparin Sodium,Porcine 5,000 Unit/Ml Vial) 5,000 unit SUBCUT Q12H [facility] Last Admin: 09/26/24 10:23 Dose: 5,000 unit Cefazolin Sodium/Dextrose (Ancef) 2 gm in 50 mls @ 100 mls/hr IV Q8H [facility] Last Infusion: 09/26/24 12:57 Dose: Infused Insulin Human Lispro (Insulin Lispro 100 Unit/Ml 3 Ml Vial) 0 unit SUBCUT QIDACHS [facility]; Protocol Last Admin: 09/26/24 11:58 Dose: 6 unit Loratadine (Loratadine 10 Mg Tablet) 10 mg PO DAILY [facility] Last Admin: 09/26/24 08:00 Dose: 10 mg Losartan Potassium (Losartan Potassium 50 Mg Tablet) 50 mg PO DAILY [facility]; Protocol Last Admin: 09/26/24 08:00 Dose: 50 mg Magnesium Hydroxide (Milk Of Magnesia 30 Ml Oral.Susp) 30 ml PO DAILY PRN PRN Reason: Constipation Melatonin (Melatonin 3 Mg Tablet) 6 mg PO BEDTIME PRN PRN Reason: Insomnia Last Admin: 09/25/24 23:05 Dose: 6 mg Multivitamins/Vitamin C (Multivitamin Tablet) 1 tab PO DAILY [facility] Last Admin: 09/26/24 08:00 Dose: 1 tab Naloxone HCl (Naloxone Hcl 0.4 Mg/Ml Vial) 0.04 mg IVPUSH Q5M PRN PRN Reason: Excessive sedation or RR < 8 Non-Formulary Medication (Cyclosporine [Restasis]) 1 drop EYE-BOTH Q12H [facility] Oxycodone HCl (Oxycodone Hcl Immed Release 5 Mg Tablet) 5 mg PO Q4H PRN PRN Reason: Pain, Moderate(Pain Scale 4-6) Last Admin: 09/26/24 14:32 Dose: 5 mg Sodium Chloride (0.9 % Sodium Chloride Flush 3 Ml Syringe) 3 ml IVFLUSH QSHIFT [facility] Last Admin: 09/26/24 08:02 Dose: 3 ml Vitamin D (Cholecalciferol (Vitamin D3) 25 Mcg Tablet) 50 mcg PO DAILY [facility] Last Admin: 09/26/24 08:00 Dose: 50 mcg Home Medications ?Medication ?Instructions ?Recorded ?Confirmed ?Last Taken ?Type fexofenadine 180 mg tablet 180 mg PO DAILY 11/30/22 09/23/24 Unknown History potassium citrate 99 mg capsule 99 mg PO DAILY 11/30/22 09/23/24 Unknown History acetaminophen 650 mg 1,300 mg PO Q8H PRN Pain 09/23/24 09/23/24 Unknown History tablet,extended release (Arthritis Pain Relief (acetaminophen) ER) allopurinol 300 mg tablet 300 mg PO DAILY 09/23/24 09/23/24 Unknown History alpha lipoic acid 300 mg capsule 300 mg PO DAILY 09/23/24 09/23/24 Unknown History apixaban 5 mg tablet (Eliquis) 5 mg PO BID 09/23/24 09/23/24 09/21/24 History cholecalciferol (vitamin D3) 50 50 mcg PO DAILY 09/23/24 09/23/24 Unknown History mcg (2,000 unit) tablet cyanocobalamin (vitamin B-12) 2,500 mcg PO DAILY 09/23/24 09/23/24 Unknown History 2,500 mcg tablet cyclosporine 0.05 % eye drops in a 1 drp ophthalmic (eye) Q12H 09/23/24 09/23/24 Unknown History dropperette (Restasis) diltiazem HCl 180 mg capsule,24 180 mg PO DAILY 09/23/24 09/23/24 Unknown History hr,extended release glucosamine-chondroitin 500 mg-400 1 tab PO DAILY 09/23/24 09/23/24 Unknown History mg tablet losartan 50 mg tablet 50 mg PO QAM 09/23/24 09/23/24 Unknown History metformin 500 mg tablet,extended 1,000 mg PO BID 09/23/24 09/23/24 Unknown History release 24hr (osmotic) multivitamin 1 tab PO DAILY 09/23/24 09/23/24 Unknown History simvastatin 40 mg tablet 20 mg PO BEDTIME 09/23/24 09/23/24 Unknown History turmeric 400 mg capsule 400 mg PO DAILY 09/23/24 09/23/24 Unknown History Physical Exam Vital Signs: Vital Signs: Last Vital Signs Temp 100.2 F 09/26/24 16:00 Pulse 108 H 09/26/24 16:00 Resp 16 09/26/24 16:00 BP 170/76 H 09/26/24 16:00 Pulse Ox 98 09/26/24 16:00 O2 Del Method Room Air 09/26/24 16:00 O2 Flow Rate 6 09/24/24 12:09 BMI result Body Mass Index 34.6 Const: General: cooperative HEENT: Head: Yes normal to inspection Face and sinus: Yes normal facial exam Mouth: Normal oral and palatal mucosa present Teeth and gingiva: dentition normal Eyes: General: appearance normal, both eyes and all related structures Pupils: Equal, round and reactive pupils present Resp: Effort & Inspection: normal respiratory effort Cardio: Rate: regular rate Rhythm: regular rhythm GI: Palpation (GI): Soft to palpation and nontender : General: Yes no CVA tenderness Back/Spine/Pelvis: Back: no CVA tenderness Skin: General skin exam: no rashes or lesions noted Neuro: General: moves all extremities Cranial nerves: Yes Equal, round and reactive pupils present Extrem: Other: left knee swelling General: Yes normal to inspection Psych: Appearance: grossly normal Results Labs 09/26/24 07:14 09/26/24 07:14 Labs: Short CBC 09/26/24 Range/Units 07:14 WBC 12.7 H (4.8-10.8) X10*3/uL Hgb 12.0 L (14.0-18.0) g/dl Hct 35.8 L (42.0-52.0) % Plt Count 340 (160-400) X10*3/uL BMP 09/26/24 07:14 Sodium 135 Potassium 4.2 Chloride 100 Carbon Dioxide 26 BUN 37 H Creatinine 1.27 Calcium 9.2 Microbiology Microbiology Results: Microbiology 09/23/24 08:50 Knee aspirate Gram Stain - Final 09/23/24 08:50 Knee aspirate Anaerobic Culture - Preliminary Culture in progress. 09/23/24 08:50 Knee aspirate Gross Specimen Examination - Final 09/23/24 08:50 Knee aspirate Fluid Crystals - Final 09/23/24 08:50 Knee aspirate Joint Fluid Culture - Final Staphylococcus aureus 09/23/24 08:51 Knee aspirate Gram Stain - Final 09/23/24 08:51 Knee aspirate Anaerobic Culture - Preliminary Culture in progress. 09/23/24 08:51 Knee aspirate Gross Specimen Examination - Final 09/23/24 08:51 Knee aspirate Fluid Crystals - Final 09/23/24 08:51 Knee aspirate Joint Fluid Culture - Final Staphylococcus aureus 09/24/24 06:23 Blood - Venous Blood Culture - Preliminary No growth after 48 hours. 09/24/24 06:24 Blood - Venous Blood Culture - Preliminary No growth after 48 hours. 09/22/24 15:58 Blood - Venous Blood Culture - Final Staphylococcus aureus 09/22/24 15:57 Blood - Venous Blood Culture - Final Staphylococcus aureus Assessment and Plan (1) Arthritis, septic, knee: Status: Acute (2) MSSA bacteremia: Status: Acute Plan Would give six weeks Ancef and possible po after.
[2024-09-26 20:49] LABS: Glucose, Whole Blood 284 mg/dL (60-115)
[2024-09-26] MEDS: Atorvastatin Calcium 10 MG TABLET PO (21:36)
[2024-09-27] MEDS: Acetaminophen 325 MG TABLET 650 MG PO ×2 (02:58→12:08)
[2024-09-27 03:33] VITALS: BP 134/78; PULSE 100; RESP 17; TEMP 36.6; O2SAT 93
[2024-09-27] MEDS: ceFAZolin Sodium/Dextrose,Iso 2 GM/50 ML PIGGYBACK IV ×2 (04:17→11:59)
[2024-09-27 07:26] VITALS: BP 143/79; PULSE 96; RESP 16; TEMP 36.4; O2SAT 96
[2024-09-27 07:43] LABS: Glucose, Whole Blood 209 mg/dL (60-115)
[2024-09-27] MEDS: Insulin Lispro 100 UNIT/ML 3 ML VIAL SUBCUT ×2 (08:10→11:58)
[2024-09-27] MEDS: allopurinoL 300 MG TABLET PO (08:11)
[2024-09-27] MEDS: 0.9 % Sodium Chloride Flush 3 ML SYRINGE IVFLUSH (08:11)
[2024-09-27] MEDS: Multivitamin TABLET 1 TAB PO (08:11)
[2024-09-27] MEDS: Loratadine 10 MG TABLET PO (08:11)
[2024-09-27] MEDS: Cyanocobalamin (Vitamin B-12) 500 MCG TABLET 2500 MCG PO (08:12)
[2024-09-27] MEDS: dilTIAZem HCL CD 180 MG CAP.ER.24H PO (08:12)
[2024-09-27] MEDS: Cholecalciferol (Vitamin D3) 25 MCG TABLET 50 MCG PO (08:12)
[2024-09-27] MEDS: Losartan Potassium 50 MG TABLET PO (08:12)
--- NOTE | 2024-09-27 09:39 | P.PICC_ITS ---
PICC Line Insertion NPICC Diagnosis: septic joint Indication: shelter ABT Pertinent Labs: Reviewed Technique: Following informed consent including risks, benefits and alternatives and using sterile technique including cap and mask, sterile gown, glove and drape, the right arm was prepped and draped in the usual sterile fashion of full barrier technique with CHG. Following completion of Osgood Protocol the skin and soft tissues were anesthetized with 1% Lidocaine plain. Using ultrasound guidance, right basilic vein access was obtained. Over an 0.018 wire through peel-away sheath, a 4FR single lumen PASV PICC line was positioned. Catheter length is 41cm internal length, 0cm external length, for a total trimmed length of 41cm. The procedure was performed in [facility]. Tip verification was performed by Augusta Allan with Sherlock 3CG. Tip located in SVC. Ultrasound was used to document vein patency and for needle entry. A formal ultrasound picture and cardiac rhythm strip was recorded. Vascular Project Assistant has released the line for use and it is currently dressed with a StatLock, Tegaderm, and CHG disc. Verification has been performed for blood return and line patency. Arm Circumference: 35cm Equipment: Apokalyyis POWERPICC SOLO Catheter with Sherlock 3CG Tip Catheter Type: 4FR single lumen PASV PICC Lot #: [id number]
[2024-09-27] MEDS: Heparin Sodium,Porcine 5,000 UNIT/ML VIAL 5000 UNIT SUBCUT (10:39)
--- NOTE | 2024-09-27 11:23 | P.CONNP_ITS ---
History of Present Illness Reason for Consult Consult date: 09/27/24 Chief Complaint Chief complaint: septic arthritis History of Present Illness Narrative: 78 y/o male with DMII, gout, obesity, afib, CKD3, latent TB, HTN. presented 09/22 with knee pain and swelling, being treated for septic arthritis with MRSA bacteremia. Nephrology consulted for PICC clearance for continuous churn buttermaker abx pt with no specific complaints Review of Systems Constitutional: Reports no additional constitutional complaints Cardiovascular: Denies chest pain, Denies leg edema and Denies dyspnea Respiratory: Denies dyspnea Gastrointestinal: Denies abdominal pain Genitourinary: Reports no additional male genitourinary complaints Skin/Breast: Denies rash PMFSH Past Medical History Medical History (Updated 09/27/24 @ 11:28 by Kristin Deras DNP, EMERGENCY SERVICES DISPATCHER-BC) MSSA bacteremia Hyperlipidemia Gout History of kidney stones Diabetes mellitus Benign essential hypertension OA (osteoarthritis) Iritis Chronic kidney disease, stage 3b Sensorineural hearing loss Family History Family history: reviewed and not pertinent Social History Social History Household Members: None Housing: House Do you presently have visiting nurse or other home services: No Patient Tobacco Use Status: Never used Tobacco e-Cigarette/Vaping Use: Former Use service: Yes Meds Allergies Allergy/AdvReac Type Severity Reaction Status Date / Time shrimp Allergy Anaphylaxis Verified 09/23/24 12:41 Active Medications: Current Medications Acetaminophen (Acetaminophen 325 Mg Tablet) 650 mg PO Q6H PRN PRN Reason: Pain, Mild 1-3,fever,headache Last Admin: 09/27/24 02:58 Dose: 650 mg Allopurinol (Allopurinol 300 Mg Tablet) 300 mg PO DAILY [facility] Last Admin: 09/27/24 08:11 Dose: 300 mg Apixaban (Apixaban 5 Mg Tablet) 5 mg PO BID [facility] Atorvastatin Calcium (Atorvastatin Calcium 10 Mg Tablet) 10 mg PO BEDTIME [facility] Last Admin: 09/26/24 21:36 Dose: 10 mg Calcium Carbonate (Calcium Carbonate 750 Mg Tab.Chew) 750 mg PO Q4H PRN PRN Reason: Heartburn Cyanocobalamin (Cyanocobalamin (Vitamin B-12) 500 Mcg Tablet) 2,500 mcg PO DAILY [facility] Last Admin: 09/27/24 08:12 Dose: 2,500 mcg Dextrose (Dextrose 50 % 25 Gm/50 Ml Syringe) 25 gm IVPUSH Q15M PRN; Protocol PRN Reason: per Hypoglycemia Standing Ord. Diltiazem HCl (Diltiazem Hcl Cd 180 Mg Cap.Er.24h) 180 mg PO DAILY [facility]; Protocol Last Admin: 09/27/24 08:12 Dose: 180 mg Glucose (Glucose Gel 15 Gm Gel..Gram.) 15 gm PO Q15M PRN; Protocol PRN Reason: per Hypoglycemia Standing Ord. Cefazolin Sodium/Dextrose (Ancef) 2 gm in 50 mls @ 100 mls/hr IV Q8H [facility] Last Infusion: 09/27/24 04:52 Dose: Infused Insulin Human Lispro (Insulin Lispro 100 Unit/Ml 3 Ml Vial) 0 unit SUBCUT QIDACHS [facility]; Protocol Last Admin: 09/27/24 08:10 Dose: 4 unit Loratadine (Loratadine 10 Mg Tablet) 10 mg PO DAILY [facility] Last Admin: 09/27/24 08:11 Dose: 10 mg Losartan Potassium (Losartan Potassium 50 Mg Tablet) 50 mg PO DAILY [facility]; Protocol Last Admin: 09/27/24 08:12 Dose: 50 mg Magnesium Hydroxide (Milk Of Magnesia 30 Ml Oral.Susp) 30 ml PO DAILY PRN PRN Reason: Constipation Melatonin (Melatonin 3 Mg Tablet) 6 mg PO BEDTIME PRN PRN Reason: Insomnia Last Admin: 09/25/24 23:05 Dose: 6 mg Multivitamins/Vitamin C (Multivitamin Tablet) 1 tab PO DAILY [facility] Last Admin: 09/27/24 08:11 Dose: 1 tab Naloxone HCl (Naloxone Hcl 0.4 Mg/Ml Vial) 0.04 mg IVPUSH Q5M PRN PRN Reason: Excessive sedation or RR < 8 Non-Formulary Medication (Cyclosporine [Restasis]) 1 drop EYE-BOTH Q12H [facility] Oxycodone HCl (Oxycodone Hcl Immed Release 5 Mg Tablet) 5 mg PO Q4H PRN PRN Reason: Pain, Moderate(Pain Scale 4-6) Last Admin: 09/26/24 14:32 Dose: 5 mg Sodium Chloride (0.9 % Sodium Chloride Flush 3 Ml Syringe) 3 ml IVFLUSH QSHIFT [facility] Last Admin: 09/27/24 08:11 Dose: 3 ml Vitamin D (Cholecalciferol (Vitamin D3) 25 Mcg Tablet) 50 mcg PO DAILY [facility] Last Admin: 09/27/24 08:12 Dose: 50 mcg Home Medications ?Medication ?Instructions ?Recorded ?Confirmed ?Last Taken ?Type fexofenadine 180 mg tablet 180 mg PO DAILY 11/30/22 09/23/24 Unknown History potassium citrate 99 mg capsule 99 mg PO DAILY 11/30/22 09/23/24 Unknown History acetaminophen 650 mg 1,300 mg PO Q8H PRN Pain 09/23/24 09/23/24 Unknown History tablet,extended release (Arthritis Pain Relief (acetaminophen) ER) allopurinol 300 mg tablet 300 mg PO DAILY 09/23/24 09/23/24 Unknown History alpha lipoic acid 300 mg capsule 300 mg PO DAILY 09/23/24 09/23/24 Unknown History apixaban 5 mg tablet (Eliquis) 5 mg PO BID 09/23/24 09/23/24 09/21/24 History cholecalciferol (vitamin D3) 50 50 mcg PO DAILY 09/23/24 09/23/24 Unknown History mcg (2,000 unit) tablet cyanocobalamin (vitamin B-12) 2,500 mcg PO DAILY 09/23/24 09/23/24 Unknown History 2,500 mcg tablet cyclosporine 0.05 % eye drops in a 1 drp ophthalmic (eye) Q12H 09/23/24 09/23/24 Unknown History dropperette (Restasis) diltiazem HCl 180 mg capsule,24 180 mg PO DAILY 09/23/24 09/23/24 Unknown History hr,extended release glucosamine-chondroitin 500 mg-400 1 tab PO DAILY 09/23/24 09/23/24 Unknown History mg tablet losartan 50 mg tablet 50 mg PO QAM 09/23/24 09/23/24 Unknown History metformin 500 mg tablet,extended 1,000 mg PO BID 09/23/24 09/23/24 Unknown History release 24hr (osmotic) multivitamin 1 tab PO DAILY 09/23/24 09/23/24 Unknown History simvastatin 40 mg tablet 20 mg PO BEDTIME 09/23/24 09/23/24 Unknown History turmeric 400 mg capsule 400 mg PO DAILY 09/23/24 09/23/24 Unknown History Physical Exam Vital Signs: Last Vital Signs Temp 97.5 F 09/27/24 07:26 Pulse 96 09/27/24 07:26 Resp 16 09/27/24 07:26 BP 143/79 H 09/27/24 07:26 Pulse Ox 96 09/27/24 07:26 O2 Del Method Room Air 09/27/24 07:26 O2 Flow Rate 6 09/24/24 12:09 BMI result Body Mass Index 34.6 Const General: no acute distress, alert and awake Resp Effort & Inspection: normal respiratory effort Auscultation: clear to auscultation bilaterally Cardio Rhythm: regular rhythm Heart sounds: S1 normal heart sound present and S2 normal heart sound present GI Palpation (GI): Soft to palpation and nontender Skin Rashes: no rashes Extrem General: No edema Results Lab Results 09/26/24 07:14 09/26/24 07:14 Lab results: Chemistry 09/25/24 09/26/24 05:47 07:14 Sodium 136 135 Potassium 4.6 4.2 Carbon Dioxide 23 26 BUN 47 H 37 H Creatinine 1.40 1.27 Calcium 9.1 9.2 Hematology 09/25/24 09/26/24 05:47 07:14 WBC 11.8 H 12.7 H Hgb 12.1 L 12.0 L Plt Count 345 340 Assessment and Plan (1) CKD (chronic kidney disease): Qualifiers: Chronic kidney disease stage: stage 3 (moderate) Chronic kidney disease stage 3 subtype: unspecified whether 3a or 3b Qualified Code(s): N18.30 - Chronic kidney disease, stage 3 unspecified Status: Acute Plan Patient with CKD3, ok for PICC insertion for long-term antibiotics. Recommend maintaining blood pressure control, avoid nephrotoxins. Will sign off, happy to follow up if new concerns or questions arise. Discussed with Dr López. Procedures Date of Service Date of Service: 09/27/24
[2024-09-27 11:38] LABS: Glucose, Whole Blood 319 mg/dL (60-115)
--- NOTE | 2024-09-27 11:43 | P.DS_ITS ---
DS: Providers Provider Date of Service: 09/27/24 Date of admission: 09/22/24 18:13 Date of discharge: 09/27/24 Primary care physician: Chiara Callaway PA-C Consults: 09/22/24 18:16 Consult to Orthopedics Routine Consulting Provider: [facility] Reason for consultation: ?septic arthritis 09/23/24 10:37 Consult to Infectious Diseases Routine Consulting Provider: [facility] Reason for consultation: septic joint, bacteremia Attending physician on discharge: Michael Cordova Discharging clinician: Belen Singleton DS: Diagnosis Discharge Diagnosis (1) CKD (chronic kidney disease): Status: Acute (2) MSSA bacteremia: Status: Acute (3) Arthritis, septic, knee: Status: Acute DS: Summary Hospital Course Hospital Course: From H&P on the day of admission 78M PMH DM, gout, obeisty, pafib on eliquis, CKD III, latent TB, HTN, presented with fall and left knee pain and swelling. Patient states that pain and swelling in his left knee began about 10 days prior to presentation. He took [id number] anti-inflammatories. Four days prior to presentation saw his doctor performed arthrocentesis and said it was a gout flare. On day of presentation patient was walking in his legs gave out and he lay on the floor for several hours. Denies any fever, chills, abdominal pain. In ED, x-ray of the knee showed no fracture, severe degenerative changes with large joint effusion. Lab significant for leukocytosis and elevated CRP and ESR. Left knee pain and swelling initially thought to be Inflammatory (psuedogout), fluid analysis did show calcium pyrophosphate crystals but also grew MSSA consistent with septic arthritis. Blood cultures also growing MSSA. Patient unable to tolerate NSAIDs due to anticoagulation with Eliquis and chronic kidney disease. Continued on baseline allopurinol. Surveillance blood cultures from September 24 negative to date. Seen by Orthopedic surgery s/p washout 09/24/24, WBAT, PT. Eliquis was initially placed on hold for planned procedure, no further procedure plan, can resume Eliquis 09/27. Echocardiogram with no vegetation. Seen by ID, recommended 6 weeks of IV Ancef. PICC line was placed September 27. Patient will be discharged to short-term rehab. Six weeks of antibiotics from September 24, end date 11/05. Follow CBC, BMP weekly. Outpatient follow-up with JACKY richey. Time spent discussing smoking cessation with patient: more than 10 minutes Time Attestation Discharge Coordination Time (in mins): 36 Quality: Safe Use of Opioids Does Pt have an Active Cancer Diagnosis on the Problem List?: No Quality: Stroke Does the patient have a stroke diagnosis?: No Physical Exam Vital Signs: Vital Signs: Last Vital Signs Temp 97.5 F 09/27/24 07:26 Pulse 96 09/27/24 07:26 Resp 16 09/27/24 07:26 BP 143/79 H 09/27/24 07:26 Pulse Ox 96 09/27/24 07:26 O2 Del Method Room Air 09/27/24 07:26 O2 Flow Rate 6 09/24/24 12:09 BMI result Body Mass Index 34.6 Const: Other: hard of hearing General: cooperative, comfortable, no acute distress, alert and awake Orientation/consciousness: patient oriented x3 Neuro: General: patient oriented x3 Extrem: Other: Left knee wrapped in clean, dry [place] bandage DS: Data Data Completed and Pending Labs on day of discharge: Laboratory Results - last 24 hr 09/26/24 09/26/24 09/27/24 16:30 20:35 07:03 POC Glucose 236 H 284 H 209 H 09/27/24 11:34 POC Glucose 319 H Preliminary micro results at discharge 09/23/24 08:50 Anaerobic Culture - Preliminary Knee aspirate Culture in progress. 09/23/24 08:51 Anaerobic Culture - Preliminary Knee aspirate Culture in progress. 09/24/24 06:23 Blood Culture - Preliminary Blood - Venous No growth after 48 hours. 09/24/24 06:24 Blood Culture - Preliminary Blood - Venous No growth after 48 hours. Discharge Plan Discharge Anticipated Discharge Date/Time: 09/27/24 15:00 Patient Disposition: Xfer SNF Discharge Diagnosis: Pseudogout, septic arthritis of left knee Referrals: Mustapha Cordero PA [Physician Consumer Insights Specialist] - 10/01/24 ( 10/01/24 at 11:30 with Mustapha DAO ) Lanny Pelletier MD [Physician] - 6 Weeks Discharge Medications: New oxycodone 5 mg Tablet 5 mg PO Q4H PRN (Reason: Pain, Moderate(Pain Scale 4-6)) Qty: 10 0RF Rx Instructions: Partial Fill upon patient request. Continued multivitamin Tablet 1 tab PO DAILY losartan 50 mg tablet 50 mg PO QAM diltiazem HCl 180 mg Capsule,Extended Release 24hr 180 mg PO DAILY simvastatin 40 mg Tablet 20 mg PO BEDTIME acetaminophen [Arthritis Pain Relief (acetam)] 650 mg Tablet Extended Release 1,300 mg PO Q8H PRN (Reason: Pain) allopurinol 300 mg tablet 300 mg PO DAILY glucosamine-chondroitin 500-400 mg Tablet 1 tab PO DAILY cyclosporine [Restasis] 0.05 % Dropperette 1 drp OPHTHALMIC (EYE) Q12H metformin 500 mg Tablet Extended Release 24hr 1,000 mg PO BID alpha lipoic acid 300 mg Capsule 300 mg PO DAILY cholecalciferol (vitamin D3) 50 mcg (2,000 unit) Tablet 50 mcg PO DAILY Eliquis 5 mg Tablet 5 mg PO BID cyanocobalamin (vitamin B-12) 2,500 mcg Tablet 2,500 mcg PO DAILY turmeric 400 mg Capsule 400 mg PO DAILY fexofenadine 180 mg tablet 180 mg PO DAILY potassium citrate 99 mg capsule 99 mg PO DAILY Discharge Orders: Discharge Order (Routine); Ordered 09/27/24 Ordered By: Belen Singleton Diet: Advance to usual diet Activity on Discharge: Use cane or walker Stand Alone Forms: Patient Portal Discharge page Print Language: Khmer Activity Restrictions/Additional Instructions: Gentle ROM of the left knee Use walker for ambulation Limit stair climbing No shower - No tub bath Follow up with orthopedics in 1 week Care Plan Goals: See below Health Concerns: Pseudogout, septic arthritis of left knee MSSA bacteremia Plan of Treatment: Complete 6 weeks of IV cefazolin 2 g q.8 hours. Start date September 24, end date November 05 PICC line placed September 27, complete above antibiotics and then remove Follow CBC, BMP weekly Outpatient follow-up with Orthopedic surgery Outpatient follow-up with Infectious diseases near end of IV antibiotics Assessment: See discharge summary
[2024-09-27 12:00] VITALS: BP 174/85; PULSE 105; RESP 18; TEMP 36.6; O2SAT 97
--- NOTE | 2024-09-27 13:21 | MHC.CM.PN ---
Patient received PICC line this am. He is medically cleared for discharge today. He has accepted a bed [facility]. All dc info has been sent to the facility. Patient will transport via BLS @ 3pm today.
[2024-09-27 14:39] VITALS: BP 142/80; PULSE 98; RESP 18; TEMP 37.2; O2SAT 96
--- NOTE | 2024-09-27 15:31 | PC.NURSE ---
pt noted to have temp 99.0 F, 98 pulse bp 142/80. Scheduled to D[facility] as scheduled
--- NOTE | 2024-10-01 08:34 | W.PM.OPN ---
Operative Note Operative Note Date of Service: 09/24/24 Narrative: Date of Service: 09/24/24 Pre-op diagnosis: super infected pseudogout left knee Post-op diagnosis: same Procedure: Arthroscopic debridement and lavage left knee Implants: none Surgeon: Vern Cervantes MD Anesthesia: GLMA and local Was an Police Captain Senior used for this Procedure?: Yes Police Captain Senior: Mustapha Cordero Estimated blood loss (mL): 5 IV fluids (mL): 40 Pathology: none sent Condition: stable Disposition: PACU Procedure in detail: Patient was brought to the operating room placed supine on the arthroscopic table and prepped and draped in standard sterile fashion. A time-out was called to identify proper site proper procedure proper surgeon and IV antibiotics per weight were administered. I began by exsanguinating the limb and insufflating tourniquet to 300 mm Hg. Then made a standard anterolateral stab incision. The knee was insufflated with water and 30 degree arthroscope was placed. There was grade 3 fibrillations of the patella. The suprapatellar pouch was bleeding friable synovium fluid collection.. I descended into the medial compartment where I made my medial portal under direct visualization. The meniscus was grossly intact but there was severe end-stage eburnation of the cartilage surfaces of the medial compartment. The ACL was examined and found to be intact and the lateral compartment also without the need for intervention. At this point I used a combination of shaver and cautery Wand to debride the synovium of the suprapatellar pouch, the medial and lateral gutters as well as the fat pad. I then lavaged for proximally 10 straight minutes via an accessory superolateral portal which was established under direct visualization. Once I had removed any loose debris and performed a full synovial debridement and lavage I removed all instrumentation and closed the portals with skin glue. 25 mL of 2% Marcaine with epinephrine was injected into the joint and the surrounding soft tissues. Patient was then placed in sterile dressing extubated brought recovery room stable condition. There were no known complications.
== END 2024-09-27 15:34 | disposition skilled nursing facility (03) | DRG 486 ==
LOC: HO.ED 18:27 → HO.EDOVER 18:44 → HO.S3 09-23 11:06
PROVIDERS: Internal Medicine; Orthopaedic Surgery; Physician Assistant; Physician Assistant Medical; Admitting Provider Internal Medicine; Emergency Provider Emergency Medicine; PCP Physician Assistant Medical; Visit Provider Physician Assistant Medical
PROC: 3E1U48Z Irrigation of Joints using Irrigating Substance, Percutaneous Endoscopic Approach (ICD-10-PCS; CPT 29870; principal; 2024-09-24 11:00)
DX: M00.062 Staphylococcal arthritis, left knee (principal); R78.81 Bacteremia; M11.262 Other chondrocalcinosis, left knee; I12.9 Hypertensive chronic kidney disease with stage 1 through stage 4 chronic kidney disease, or unspecified chronic kidney disease; N18.30 Chronic kidney disease, stage 3 unspecified; E11.22 Type 2 diabetes mellitus with diabetic chronic kidney disease; B95.61 Methicillin susceptible Staphylococcus aureus infection as the cause of diseases classified elsewhere; I48.0 Paroxysmal atrial fibrillation; E66.9 Obesity, unspecified; Z68.34 Body mass index [BMI] 34.0-34.9, adult; Z71.3 Dietary counseling and surveillance; W19.XXXA Unspecified fall, initial encounter; Z20.822 Contact with and (suspected) exposure to COVID-19; Z79.01 Long term (current) use of anticoagulants; Z79.899 Other long term (current) drug therapy
CPT/HCPCS: 0241U; 36415; 36573; 70450; 71045; 72125; 73564; 80048; 80053; 81001; 82550; 82947; 83605; 83735; 84550; 85025; 85027; 85610; 85652; 86140; 86850; 86900; 86901; 87040; 87070; 87073; 87077; 87186; 87205; 89051; 89060; 93005; 93306; 97110; 97116; 97162; 99285; C1751; J0131; J0171; J0690; J1100; J1644; J2003; J2405; J2543; J2704; J2795; J3010; J3370; Q9957

== ENCOUNTER → 2024-09-22 15:31 | Outpatient (BNV) | payer MEDICARE, BC, SELFPAY | PROVIDERS: Admitting Provider Internal Medicine; Emergency Provider Emergency Medicine; Visit Provider Internal Medicine Cardiovascular Disease | DX: R00.0 Tachycardia, unspecified (principal) | CPT/HCPCS: 93010 ==

== ENCOUNTER → 2024-09-22 15:35 | Outpatient (BNV) | payer MEDICARE, BC, SELFPAY | PROVIDERS: Visit Provider Nuclear Medicine | DX: R42 Dizziness and giddiness (principal); G31.1 Senile degeneration of brain, not elsewhere classified; M17.12 Unilateral primary osteoarthritis, left knee; M25.462 Effusion, left knee; R53.1 Weakness; W19.XXXA Unspecified fall, initial encounter | CPT/HCPCS: 70450; 71045; 72125; 73564 ==

== ENCOUNTER 2024-09-22 18:13 | Outpatient (BNV) | payer MEDICARE, BC, SELFPAY | END 2024-09-25 07:00 | PROVIDERS: Admitting Provider Internal Medicine; Emergency Provider Emergency Medicine; Visit Provider Internal Medicine Cardiovascular Disease | DX: R78.81 Bacteremia (principal); I51.89 Other ill-defined heart diseases | CPT/HCPCS: 93306 ==

== ENCOUNTER → 2024-09-22 18:13 | Outpatient (BNV) | payer MEDICARE, BC, SELFPAY | PROVIDERS: Admitting Provider Internal Medicine; Emergency Provider Emergency Medicine; Visit Provider Physician Assistant | DX: M11.262 Other chondrocalcinosis, left knee (principal) | CPT/HCPCS: 20610; 99223; 99499 ==

== ENCOUNTER → 2024-09-22 18:13 | Outpatient (BNV) | payer MEDICARE, BC, SELFPAY | PROVIDERS: Admitting Provider Internal Medicine; Emergency Provider Emergency Medicine; PCP Physician Assistant Medical; Visit Provider Internal Medicine | DX: M00.9 Pyogenic arthritis, unspecified (principal); R78.81 Bacteremia; B95.61 Methicillin susceptible Staphylococcus aureus infection as the cause of diseases classified elsewhere | CPT/HCPCS: 99232 ==

== ENCOUNTER → 2024-09-22 18:13 | Outpatient (BNV) | payer MEDICARE, BC, SELFPAY | PROVIDERS: Admitting Provider Internal Medicine; Emergency Provider Emergency Medicine; Visit Provider Internal Medicine | DX: M25.562 Pain in left knee (principal); W19.XXXA Unspecified fall, initial encounter | CPT/HCPCS: 99223; 99232 ==

== ENCOUNTER → 2024-09-22 18:13 | Outpatient (BNV) | payer MEDICARE, BC, SELFPAY | PROVIDERS: Admitting Provider Internal Medicine; Emergency Provider Emergency Medicine; PCP Physician Assistant Medical; Visit Provider Nurse Practitioner Family | DX: N18.30 Chronic kidney disease, stage 3 unspecified (principal) | CPT/HCPCS: 99221 ==

== ENCOUNTER 2024-10-01 07:46 | Outpatient (REF) | payer SELFPAY | END 2024-10-01 07:47 | disposition home or self-care (01) | LOC: HO.HOSX 07:46 | DX: Z13.89 Encounter for screening for other disorder (principal) ==

== ENCOUNTER 2024-10-01 14:38 | Outpatient (AMB) | payer MEDICARE, SELFPAY ==
--- NOTE | 2024-10-01 14:40 | MHC.OFFVIS ---
Intake Visit Reasons: PO: LT knee DBRT & lavage 09/24/24 NE Intake Note: Rayo 78 yr old male presents today for his P/O visit for his left knee debridement and lavage. States he has mild pain, he attend P.T today where he did the recumbent bike and felt good about it. Allergies shrimp Allergy (Verified 09/23/24 12:41) Anaphylaxis HPI HPI PO: LT knee DBRT & lavage 09/24/24 NE: Details: Rayo 78 yr old male presents today for his P/O visit for his left knee debridement and lavage. States he has mild pain, he attend P.T today where he did the recumbent bike and felt good about it. Has not ambulated for any prolonged period. No other acute complaints or concerns at this time. [facility] Medical History (Updated 09/27/24 @ 11:28 by Kristin Deras, DILLON, ORGANIZATIONAL RESEARCH CONSULTANT-BC) MSSA bacteremia Hyperlipidemia Gout History of kidney stones Diabetes mellitus Benign essential hypertension OA (osteoarthritis) Iritis Chronic kidney disease, stage 3b Sensorineural hearing loss Social History Household Members: None Housing: House Do you presently have visiting nurse or other home services: No Patient Tobacco Use Status: Never used Tobacco e-Cigarette/Vaping Use: Former Use service: Yes Review of Systems Const All systems reviewed & are unremarkable except as noted in HPI and below Physical Exam Vital Signs: Last Vital Signs Temp 97.7 F 09/26/24 07:02 Pulse 95 09/26/24 07:02 Resp 18 09/26/24 07:02 BP 138/65 09/26/24 07:02 Pulse Ox 95 09/26/24 07:02 O2 Del Method Room Air 09/26/24 07:02 O2 Flow Rate 6 09/24/24 12:09 BMI result Body Mass Index 34.6 Const General: cooperative, healthy appearing and no acute distress Resp Effort & Inspection: normal respiratory effort and able to speak in complete sentences Cardio Rate: regular rate Peripheral pulses: Peripheral pulses 2+ throughout GI Palpation (GI): Soft to palpation Skin General skin exam: no rashes or lesions noted Extrem Other: Left knee incision clean, dry and intact. No active drainage, sutures intact. NVI. Left knee is still significantly edematous, no erythema or other evidence of infection. Assessment & Plan Assessment & Plan (1) Pseudogout of left knee: Code(s): M11.262 - Other chondrocalcinosis, left knee Category: Medical (2) Fall: Code(s): W19.XXXA - Unspecified fall, initial encounter Category: Medical (3) Arthritis, septic, knee: Code(s): M00.9 - Pyogenic arthritis, unspecified Category: Medical Plan 1. Pseudogout with superimposed infection of the left knee Status post arthroscopic debridement and lavage DOS 09/24/2024 Patient appears to be recovering somewhat well postoperatively Patient is seen and evaluated with Dr. Cervantes, where the importance of ambulation and more active range of motion of the left knee is heavily stressed, as if the patient is this stiff 6 weeks postoperatively it is unlikely he will ever regain full function of the left knee Patient is educated that by follow-up 2 weeks from now, he should be ambulating regularly Sutures removed Follow-up in 2 weeks, sooner with any acute concerns Coding Level of Care Code Global (95105) Diagnoses Pseudogout of left knee M11.262 Fall W19.XXXA Arthritis, septic, knee M00.9
== END 2024-10-01 15:56 | disposition home or self-care (01) ==
LOC: HO.HOS 14:38
PROVIDERS: PCP Physician Assistant Medical
DX: M11.262 Other chondrocalcinosis, left knee (principal); W19.XXXA Unspecified fall, initial encounter; M00.9 Pyogenic arthritis, unspecified
CPT/HCPCS: 99024

== ENCOUNTER → 2024-10-01 14:38 | Outpatient (BNVA) | payer MEDICARE, SELFPAY | PROVIDERS: PCP Physician Assistant Medical | DX: M11.262 Other chondrocalcinosis, left knee (principal); M00.9 Pyogenic arthritis, unspecified; W19.XXXD Unspecified fall, subsequent encounter | CPT/HCPCS: 99212 ==

== ENCOUNTER 2024-10-15 13:38 | Outpatient (AMB) | payer MEDICARE, SELFPAY ==
--- NOTE | 2024-10-15 13:55 | MHC.OFFVIS ---
Vital Signs 10/15/24 14:00 Height 5 ft 10 in Weight 241 lb BMI 34.6 Intake Visit Reasons: PO: LT knee DBRT & lavage 09/24/24 NE Intake Note: Rayo is a 78 year old male who presents today for a post operative visit status post arthroscopic debridement and lavage left knee, DOS: 09/24/[address] Vern Cervantes. Patient reports he is feeling fine however he complains of pain around the knee, radiating down his left foot, making it difficult to bend. He reports he continues going to physical therapy, finds it has been helpful. Patient continues taking Tylenol PRN with relief. Allergies shrimp Allergy (Verified 10/15/24 13:59) Anaphylaxis HPI HPI PO: LT knee DBRT & lavage 09/24/24 NE: Details: Rayo is a 78 year old male who presents today for a post operative visit status post arthroscopic debridement and lavage left knee, DOS: 09/24/[address] Vern Cervantes. Patient reports he is feeling fine however he complains of pain around the knee, radiating down his left foot, making it difficult to bend. He reports he continues going to physical therapy, finds it has been helpful. Patient continues taking Tylenol PRN with relief. Patient reports that he has been continuing to work with PT with good improvements of the his flexion capacity, but also reports that he is still having a lot of difficulty and is minimally ambulatory at this time, even with PT. denies numbness or tingling in the left lower extremity. No other acute complaints or concerns at this time. [facility] Medical History (Updated 10/05/24 @ 00:01 by Background Percy) CKD (chronic kidney disease) MSSA bacteremia Hyperlipidemia Gout History of kidney stones Diabetes mellitus Benign essential hypertension OA (osteoarthritis) Iritis Chronic kidney disease, stage 3b Sensorineural hearing loss Social History Household Members: None Housing: House Do you presently have visiting nurse or other home services: No Patient Tobacco Use Status: Never used Tobacco e-Cigarette/Vaping Use: Former Use service: Yes Review of Systems Const All systems reviewed & are unremarkable except as noted in HPI and below Physical Exam Vital Signs: BMI result Body Mass Index 34.6 Last Vital Signs Temp 97.7 F 09/26/24 07:02 Pulse 95 09/26/24 07:02 Resp 18 09/26/24 07:02 BP 138/65 09/26/24 07:02 Pulse Ox 95 09/26/24 07:02 O2 Del Method Room Air 09/26/24 07:02 O2 Flow Rate 6 09/24/24 12:09 BMI result Body Mass Index 34.6 Const General: cooperative, healthy appearing and no acute distress Resp Effort & Inspection: normal respiratory effort and able to speak in complete sentences Cardio Rate: regular rate Peripheral pulses: Peripheral pulses 2+ throughout GI Palpation (GI): Soft to palpation Skin General skin exam: no rashes or lesions noted Extrem Other: Left knee incision clean, dry and intact. No active drainage, sutures intact. NVI. Left knee is slightly edematous, no erythema or other evidence of infection. Patient is able to actively flex the left knee to approximately 90 degrees, is only able to actively extend to approximately 10-20 degrees. Assessment & Plan Assessment & Plan (1) Pseudogout of left knee: Code(s): M11.262 - Other chondrocalcinosis, left knee Category: Medical (2) Fall: Code(s): W19.XXXA - Unspecified fall, initial encounter Category: Medical (3) Arthritis, septic, knee: Code(s): M00.9 - Pyogenic arthritis, unspecified Category: Medical Plan 1. Pseudogout with superimposed infection of the left knee Status post arthroscopic debridement and lavage DOS 09/24/2024 Patient appears to be recovering somewhat well postoperatively Patient is seen and evaluated with Dr. Cervantes, where the importance of ambulation and more active range of motion of the left knee is heavily stressed, as if the patient is this stiff 6 weeks postoperatively it is unlikely he will ever regain full function of the left knee Patient is educated that by follow-up 3 weeks from now, he should be ambulating regularly Sutures removed at previous visit Follow-up in 3 weeks, sooner with any acute concerns Coding Level of Care Code Global (47437) Diagnoses Pseudogout of left knee M11.262 Fall W19.XXXA Arthritis, septic, knee M00.9
[2024-10-15 14:00] VITALS: BMI 34.6
== END 2024-10-15 14:32 | disposition home or self-care (01) ==
LOC: HO.HOS 13:39
PROVIDERS: PCP Physician Assistant Medical
DX: M11.262 Other chondrocalcinosis, left knee (principal); W19.XXXA Unspecified fall, initial encounter; M00.9 Pyogenic arthritis, unspecified
CPT/HCPCS: 99024

== ENCOUNTER → 2024-10-15 13:38 | Outpatient (BNVA) | payer MEDICARE, SELFPAY | PROVIDERS: PCP Physician Assistant Medical | DX: Z47.89 Encounter for other orthopedic aftercare (principal); M11.262 Other chondrocalcinosis, left knee; M00.9 Pyogenic arthritis, unspecified; W19.XXXD Unspecified fall, subsequent encounter; Z98.890 Other specified postprocedural states | CPT/HCPCS: 99212 ==

== ENCOUNTER 2024-11-06 11:02 | Outpatient (REF) | payer MEDICARE, SELFPAY ==
--- NOTE | ~2024-11-06 | XR_ITS ---
EXAMINATION: XR KNEE, LEFT CLINICAL INFORMATION: M25.562 - Pain in left knee COMPARISON: None available. TECHNIQUE: AP and lateral views of the left knee. FINDINGS: There is a joint effusion. There is moderate severe narrowing of the medial joint compartment and moderate narrowing of the lateral joint space. There is varus deformity. There is subchondral sclerosis and moderate marginal osteophytes. XR/XR knee LT 2V IMPRESSION: Moderate osteoarthritis with a joint effusion. Electronically signed by: Diony Zamarripa MD 11/06/2024 11:21 AM EDT
== END 2024-11-06 11:03 | disposition home or self-care (01) ==
LOC: HO.HOSX 11:02
DX: M11.262 Other chondrocalcinosis, left knee (principal); M00.9 Pyogenic arthritis, unspecified; W19.XXXA Unspecified fall, initial encounter
CPT/HCPCS: 73560; 99212

== ENCOUNTER 2024-11-06 11:02 | Outpatient (AMB) | payer MEDICARE, SELFPAY ==
--- NOTE | 2024-11-06 11:17 | A.OFFVIS_ITS ---
Intake Visit Reasons: PO: LT knee DBRT & lavage 09/24/24 NE Intake Note: Rayo is a 78 year old male who presents today for a post operative visit status post arthroscopic debridement and lavage left knee, DOS: 09/24/24. Patient reports no numbness or tingling to report at this time. Patient stated that he feels that his knee feel much better but has mild sore/tender to the touch. Allergies shrimp Allergy (Verified 11/06/24 11:20) Anaphylaxis HPI HPI PO: LT knee DBRT & lavage 09/24/24 NE: Details: Rayo is a 78 year old male who presents today for a post operative visit status post arthroscopic debridement and lavage left knee, DOS: 09/24/[address] Vern Cervantes. Patient reports he is feeling fine and then his pain has improved dramatically since previous evaluation. He reports he continues going to physical therapy, finds it has been helpful. Patient continues taking Tylenol PRN with relief. Patient reports that he has been continuing to work with PT with good improvements of the his flexion capacity, and also reports that he is having much less difficulty with ambulation than he was even 2 weeks ago.. denies numbness or tingling in the left lower extremity. No other acute complaints or concerns at this time. [facility] Medical History (Updated 10/05/24 @ 00:01 by Consuelo Greer) CKD (chronic kidney disease) MSSA bacteremia Hyperlipidemia Gout History of kidney stones Diabetes mellitus Benign essential hypertension OA (osteoarthritis) Iritis Chronic kidney disease, stage 3b Sensorineural hearing loss Social History Household Members: None Housing: House Do you presently have visiting nurse or other home services: No Patient Tobacco Use Status: Never used Tobacco e-Cigarette/Vaping Use: Former Use service: Yes Review of Systems Const All systems reviewed & are unremarkable except as noted in HPI and below Physical Exam Vital Signs: Last Vital Signs Temp 97.7 F 09/26/24 07:02 Pulse 95 09/26/24 07:02 Resp 18 09/26/24 07:02 BP 138/65 09/26/24 07:02 Pulse Ox 95 09/26/24 07:02 O2 Del Method Room Air 09/26/24 07:02 O2 Flow Rate 6 09/24/24 12:09 BMI result Body Mass Index 34.6 Const General: cooperative, healthy appearing and no acute distress Resp Effort & Inspection: normal respiratory effort and able to speak in complete sentences Cardio Rate: regular rate Peripheral pulses: Peripheral pulses 2+ throughout GI Palpation (GI): Soft to palpation Skin General skin exam: no rashes or lesions noted Extrem Other: Left knee incision clean, dry and intact. No active drainage, sutures intact. NVI. Left knee is slightly edematous, no erythema or other evidence of infection. Patient is able to actively flex the left knee to approximately 100 degrees, can extend actively to approximately 10 degrees. All range of motion is without difficulty Results Reviewed Results Reviewed: X-rays obtained in the office today and independently reviewed by me, Mustapha Cordero PA-C, demonstrate severe osteoarthritis of left knee that appears to have progressed significantly from x-rays prior to surgery. Assessment & Plan Assessment & Plan (1) Pseudogout of left knee: Code(s): M11.262 - Other chondrocalcinosis, left knee Category: Medical (2) Arthritis, septic, knee: Code(s): M00.9 - Pyogenic arthritis, unspecified Category: Medical (3) Fall: Code(s): W19.XXXA - Unspecified fall, initial encounter Category: Medical Plan 1. Pseudogout with superimposed infection of the left knee Status post arthroscopic debridement and lavage DOS 09/24/2024 Patient appears to be recovering somewhat well postoperatively Continue working on range of motion Continue working with PT Continue working on ambulation CT scan ordered to assess the left knee further as there has been rapid progression of his osteoarthritis since prior to surgery and we would like to rule out any further ongoing process due to ongoing significant effusion as well Follow-up in 3 weeks, sooner with any acute concerns Orders: Orders CT knee LT wo IV con Today M00.9 - Pyogenic arthritis, unspecified, M11.262 - Other chondrocalcinosis, left knee Coding Level of Care Code Global (21601) Diagnoses Pseudogout of left knee M11.262 Arthritis, septic, knee M00.9 Fall W19.XXXA
== END 2024-11-06 14:03 | disposition home or self-care (01) ==
DX: M11.262 Other chondrocalcinosis, left knee (principal); M00.9 Pyogenic arthritis, unspecified; W19.XXXA Unspecified fall, initial encounter
CPT/HCPCS: 99024

== ENCOUNTER → 2024-11-06 11:07 | Outpatient (BNV) | payer MEDICARE, SELFPAY | PROVIDERS: Visit Provider Radiology Diagnostic Radiology | DX: M17.12 Unilateral primary osteoarthritis, left knee (principal); M25.462 Effusion, left knee | CPT/HCPCS: 73560 ==

== ENCOUNTER 2024-11-17 10:25 | Outpatient (REF) | payer MEDICARE, SELFPAY ==
--- NOTE | ~2024-11-17 | CT_ITS ---
CLINICAL HISTORY: M11.262 - Other chondrocalcinosis, left knee --- Additional Notes or Special Instructions: Continued effusion and worsening arthritis s p lavage of septic knee Noncontrast CT, left knee Indication: Chondrocalcinosis and continued effusion. Septic joint. Comparison: Radiographs 11/06/2024 Findings: No fracture or acute malalignment. Advanced degenerative changes with near-complete joint space loss involving the medial compartment. There is subchondral sclerosis, irregularity along the articular surface and multiple small geodes are noted. There is somewhat prominent erosion involving the lateral femoral condyle, coronal images 38 -47. Small joint effusion with stranding about the knee joint. Impression: Advanced degenerative changes, joint effusion and erosive change along the lateral femoral condyle as described. Given presence of known septic joint, a focus of osteomyelitis is not excluded. Bone scan or MRI would better evaluate for this. This document has been electronically signed by: Alfredo Qureshi MD on 11/17/2024 11:20:50
--- OUTSIDE RECORDS SUMMARY | 2024-11-17 10:27 | XMS_ITS | Clinical Summary ---
Author Organization [facility] Address [address] [place], [place] [id number] Phone Care Team Providers Care Party Plan Sales Director Name Role Phone Vickie Leon NP Primary Care Provider [phone] Allergies Active Allergy Reactions Criticality Noted Date Comments Lisinopril Cough 02/15/2019 Shrimp Angioedema 02/21/2024 Medications allopurinol (ZYLOPRIM) 300 MG tablet Take 1 tablet by mouth every morning. 4 Active simvastatin (ZOCOR) 20 MG tablet Take 60 mg by mouth every morning. 4 Active metFORMIN (GLUCOPHAGE-XR) 500 MG 24 hr tablet Take 2 tablets by mouth 2 (two) times a day. 4 Active therapeutic multivitamin tablet Take 1 tablet by mouth daily. Active cyanocobalamin, vitamin B-12, 2,[address] 2,500 mcg under the tongue daily. Active losartan (COZAAR) 50 MG tablet Take 1 tablet (50 mg total) by mouth every morning. 30 tablet 3 4 Active dilTIAZem (TIAZAC) 180 MG 24 hr capsule Take 1 capsule (180 mg total) by mouth daily. 30 capsule 3 4 Active apixaban (ELIQUIS) 5 mg tablet Take 1 tablet (5 mg total) by mouth 2 (two) times a day. 60 tablet 3 4 Active cycloSPORINE (RESTASIS) 0.05 % suspension Apply to eye. 4 Active fexofenadine (URIAH) 180 MG tablet Take 1 tablet by mouth daily. Active potassium chloride (KLOR-CON) 20 mEq packet Take by mouth. Active cholecalciferol (VITAMIN D3) 25 MCG (1,000 unit) tablet Take 1,000 Units by mouth daily. Active turmeric 400 mg Cap Take by mouth. Active glucosamine-chond roitin 500-400 mg Cap Take 1 capsule by mouth 3 (three) times a day. Active Active Problems Problem Noted Date Diagnosed Date Atrial fibrillation 02/21/2024 Assessment & Plan (02/21/2024 3:22 PM EDT): -Patient denies feeling any palpitations or chest pain, incidental finding of afib with rvr -In the ED HR initially in the 140s, he received a weight based dose of cardizem IV and was then started on a drip. He quickly converted to NSR after that -Monitor on tele -TSH wnl -Follow up BNP, pt has chronic LE edema -Follow up TTE -Follow up cardio consult -Started on Eliquis, hold ASA 81 mg CHADS-VASc = 4 (4.8% risk of stroke per year) Hypertension (1 point) Age > 75 (2 points) Diabetes (1 point) HTN (hypertension) 02/21/2024 Assessment & Plan (02/21/2024 3:18 PM EDT): -BP on the lower side after receiving cardizem, hold cozaar for now DM2 (diabetes mellitus, type 2) 02/21/2024 Assessment & Plan (02/21/2024 3:17 PM EDT): -This is likely to be a brief hospitalization, continue metformin -Monitor point of care, cover with insulin sliding scale as needed -Follow up his hba1c CKD (chronic kidney disease) 02/21/2024 Assessment & Plan (02/21/2024 3:16 PM EDT): -No prior Cr available for comparison Encounters Date Type Department Care Team Description 09/23/2024 Orders Only [facility] [address] [place] [address] Homehealth, Interface ProviderMD from Last 3 Months Family History Medical History Relation Comments Heart failure Father Diabetes Mother Relation Status Comments Father Mother Social History Tobacco Use Types Packs/Day Years Used Date Smoking Tobacco: Former Cigarettes Smokeless Tobacco: Never Tobacco Cessation:Counseling Given: Not Answered Alcohol Use Standard Drinks/Week Comments Not Currently 0 (1 standard drink = 0.6 oz pur e alcohol) Education Answer Date Recorded Are you interested in more education? Not on shonda e 08/27/2022 Are you concerned about learning? Not on file 08/27/2022 No 08/27/2022 No 08/27/2022 Digital Access Answer Date Recorded No 09/27/2022 No 09/27/2022 Reliable internet access at home? Not on file 09/27/2022 Device with a working camera? Not on file Intimate Partner Violence Answer Date R ecorded Are you denied basic needs s uch as food, clothing, or medical care? No 02/21/2024 In the past 12 months have y ou been in a relationship with a person who hurts, threatens, or tries to control you? No 02/21/2024 Are you denied basic needs s uch as food, clothing, or medical care? No 02/21/2024 In the past 12 months have y ou been in a relationship with a person who hurts, threatens, or tries to control you? No 02/21/2024 Sex and Gender Information Value Date Recorded Sex Assigned at Not on file Legal Sex Male 10:05 PM EDT Gender Identity Not on file Sexual Orientation Not on file Last Filed Vital Signs Vital Sign Reading Time Taken Comments Blood Pressure 132/68 08/03/2024 9:31 AM EDT Pulse 94 08/03/2024 9:31 AM EDT Temperature 36.5 C (97.7 F) 02/22/2024 8:15 AM EDT Respiratory Rate 16 02/22/2024 12:15 PM EDT Oxygen Saturation 98% 08/03/2024 9:31 AM EDT Inhaled Oxygen Concentration - - Weight 112 kg (247 lb) 08/03/2024 9:31 AM EDT Height 170.2 cm (5' 7 ) 08/03/2024 9:31 AM EDT Body Mass Index 38.69 08/03/2024 9:31 AM EDT Plan of Treatment Upcoming Encounters Date Type Department Care Team (Late st Contact Info) Description 02/05/2025 10:30 AM EDT Office Visit [facility] [address], [address] [place] [address] Vickie Awan, DILLON [address], [address] [place] [address] [email or web address] Health Maintenance Due Date Last Done Comments DEPRESSION SCREENING 1959 SMOKING Hx and SMOKELESS TOBACCO SCREENING 11/05/1960 HEPATITIS C SCREENING 11/05/1965 ZOSTER VACCINES (2 of 3) 10/09/2012 08/14/2012 Adult Td,Tdap Booster 05/04/2020 05/04/2010 RSV VACCINE (1 - 1-dose 75+ series) 11/05/2022 COVID-19 VACCINE (2 - 2023-2 5 season) 2024 08/03/2020 HEMOGLOBIN A1C 08/22/2024 02/22/2024 DIABETIC EYE EXAM 08/29/2024 08/30/2023 BLOOD PRESSURE 02/02/2025 08/03/2024 CREATININE LEVEL 02/21/2025 02/22/2024, 02/21/2024 POTASSIUM LEVEL 02/21/2025 02/22/2024, 02/21/2024 PNEUMOCOCCAL VACCINES (50+ years) Completed 03/13/2015, 04/02/2013 HEPATITIS A VACCINES Aged Out No long er eligible based on patient's age to complete this topic HIB VACCINES Aged Out No longer eligi ble based on patient's age to complete this topic MENINGOCOCCAL VACCINES (ACWY) Aged Out No longer eligible based on patient's age to complete this topic MENINGOCOCCAL VACCINES (B) Aged Out N o longer eligible based on patient's age to complete this topic Medical Devices Not on file Procedures Procedure Name Priority Date/Time Associated Diagnosis Comments HEMOGLOBIN A1C Routine 02/22/2024 5:47 AM EDT BASIC METABOLIC PANEL Routine 02/22/2024 5:47 AM EDT from Last 3 Months or Most Recently Relevant to Health Maintenance Results * (ABNORMAL) Hemoglobin A1c (02/22/2024 5:47 AM EDT) HEMOGLOBIN A1C 7.4(H) 4.3 - 5.8 % [facility] Blood 02/22/2024 5:47 AM EDT 02/22/2024 6:12 AM EDT Heydi A [place] DO LAB BLOOD ORDERABLES Final Re sult Performing Organization Address City/[facility]/ZIP Co de Phone Number [address] [address] * (ABNORMAL) Basic metabolic panel (02/22/2024 5:47 AM EDT) SODIUM 136 133 - 146 mmol/L [facility] CHLORIDE 103 96 - 108 mmol/L [facility] POTASSIUM 4.4 3.3 - 5.1 mmol/L [facility] CO2 22 21 - 35 mmol/L [facility] BUN 26(H) 6 - 19 mg/dL [facility] CREATININE 1.40 0.5 - 1.5 mg/dL [facility] GLUCOSE 149(H) 70 - 99 mg/dL [facility] CALCIUM 8.8 8.4 - 10.3 mg/dL [facility] EGFR 52(L) >59 mL/min/1.7 3m2 [facility] Comment:Estimated glomerular filtration rate calculated using the CKD-EPI refit equation. ANION GAP 15 10 - 20 mmol/L [facility] Blood 02/22/2024 5:47 AM EDT 02/22/2024 6:12 AM EDT Heydi A [place] DO LAB BLOOD ORDERABLES Final Re sult Performing Organization Address City/[facility]/ZIP Co de Phone Number [address] [address] from Last 3 Months or Most Recently Relevant to Health Maintenance Insurance [facility] MEDEX SUPPLEMENT MEDICARE PART A & [place] [address] [place] [address] CROSS MEDEX SUPPLEMENT MEDICARE PART A & B [employer] CROSS MEDEX SUPPLEMENT MEDICARE PART A & B [employer] CROSS MEDEX SUPPLEMENT MEDICARE PART A & B [employer] CROSS MEDEX SUPPLEMENT MEDICARE PART A & B [employer] MEDEX SUPPLEMENT MEDICARE PART A & B Member Subscriber Plan / Payer (Ef fective 2012-Present) Name:Rayo Veliz Member ID:[id number] Relation to Subscriber:Self Name:Rayo Veliz Subscriber ID:[id number] Payer ID:[id number] Group ID:Not on file Type:Medicare Address: [facility] Dating by [employer] [facility] [address] [place] [address] [employer] MEDEX SUPPLEMENT MEDICARE PART A & B [employer] CROSS MEDEX SUPPLEMENT MEDICARE PART A & B [employer] CROSS MEDEX SUPPLEMENT MEDICARE PART A & B Advance Directives For more information, please contact: [phone] (9AM - 5PM [facility], Tuesday-Tuesday) * Full Code (Latest Code Status on File) Date Activated Date Inactivated Comments 02/21/2024 3:10 PM Question Answer Comments Code Status Confirmed With: Patient Care Teams Party Plan Sales Director Relationship Specialty Start Date End Date Vickie Leon NP [address] [place] [address] PCP - General Nurse Practitioner 02/22/24 Additional Source Comments The information contained in this document represents components of the legal health record. It is not the complete legal health record.[facility]
--- OUTSIDE RECORDS SUMMARY | 2024-11-17 10:27 | XMS_ITS | Data Portability ---
Author Organization [facility], [facility] Address [address] [place] [address] Care Team Providers Care Exercise Science Instructor Name Role Phone CHIARA MAKI Primary Care Provider ERMIAS BHARDWAJ Appliance Adjuster Assessment Encounter Date Assessment Date Assessment LastModified by Organization Details LastModified Time 07/08/2023 07/08/2023 We completed you r Medicare Wellness exam today. This was an opportunity to assess your overall well being including your ability to care for yourself, your mobility, memory, mental health, as well as your safety. With advancing age, it is important to assign someone in your life as your Health Care Proxy (HCP). This person should know what is important to you and what your wishes are for medical procedures if you cannot communicate your wishes yourself (severe illness, unconsciousness). We discussed having a completed Health Care Proxy form today. In addition, today we started a conversation about your End of Life wishes. These conversations will continue over the years. Please consider reading the book, Being Mortal by Chris Messina to help frame future conversations. We discussed the purpose of a MOLST form (Medical Orders for Life Sustaining Treatment) and completed this form if appropriate per your wishes. Vision and Hearing are senses that are critically important as we age. When impaired, they can contribute to memory loss, falls, and make it harder to drive, talk to family and friends, and engage in the world. Please get your vision checked yearly and your hearing checked when you start to notice hearing loss. We discussed approaches to lowering your risk of heart disease and stroke . Your blood pressure is at goal. Your cholesterol is at goal. We discussed cancer screening you may need as well as vaccines to prevent infections. Colon Cancer : Your risk of colon cancer is average. Due for colorectal screenin.. if you are not planning to have a colonoscopy please screen with stool cards yearly. Prostate Cancer : PSA testing for ages 55-69 risks and benefits discussed test ordered. Aortic Aneurysm Screening : is indicated if you have a history of smoking and is due once at age 65. Influenza Vaccine : Flu shot yearly. Tetanus Vaccine : Every 10 years. Due: 2030. The following vaccines are available from your pharmacy: Pneumonia Vaccine : PCV20: once after age 65. Shingles Vaccine : 2 shots after age 50. Covid Vaccine : Make sure you have received the most up to date covid vaccine. Not available 07/08/2023 16:40:52 07/18/2024 07/18/2024 We completed you r Medicare Wellness exam today. This was an opportunity to assess your overall well being including your ability to care for yourself, your mobility, memory, mental health, as well as your safety. With advancing age, it is important to assign someone in your life as your Health Care Proxy (HCP). This person should know what is important to you and what your wishes are for medical procedures if you cannot communicate your wishes yourself (severe illness, unconsciousness). We discussed having a completed Health Care Proxy form today. If appropriate, today we started a conversation about your End of Life wishes. These conversations will continue over the years. We discussed the purpose of a MOLST form (Medical Orders for Life Sustaining Treatment) and completed this form if appropriate per your wishes. Vision and Hearing are senses that are critically important as we age. When impaired, they can contribute to memory loss, falls, and make it harder to drive, talk to family and friends, and engage in the world. Please get your vision checked yearly and your hearing checked when you start to notice hearing loss. We discussed approaches to lowering your risk of heart disease and stroke . Your blood pressure is at goal. Your cholesterol is at goal. We discussed cancer screening you may need as well as vaccines to prevent infections. Colon Cancer : Your risk of colon cancer is average. Due for colorectal screening:no longer needed. If you are not planning to have a colonoscopy please screen with stool cards yearly. Prostate Cancer : PSA testing for ages 55-69 risks and benefits discussed not needed due to age. Influenza Vaccine : Flu shot yearly. Tetanus Vaccine : Every 10 years. Due: 2030. The following vaccines are available from your pharmacy: Pneumonia Vaccine : PCV20: once after age 65. Shingles Vaccine : 2 shots after age 50. Covid Vaccine : Make sure you have received the most up to date covid vaccine. Your personal health goal for the year is: We reviewed your chronic medical conditions and updated your plan for management. Please review instructions below. We have discussed your personal goals and discussed how to reach your goals. Please reach out to us via the Portal or phone if you have questions about your chronic conditions or if you or your caregivers require assistance in meeting your goals. Please visit our website [facility] for more patient resources. As part of your care plan, we will help coordinate your ongoing medical needs, arrange for durable medical equipment, renew prescriptions and necessary prior authorizations, facilitate getting referrals and collaborating with specialist, referrals for VNA services. 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 Not available 09/19/2024 16:12:21 Plan of Treatment Reminders Order Date Submit Date Provider Last Modified By Organization Details Last Modified Time Details Appointments LAB Follow-Up 2024 08:15A M [facility] Not available Not available Not available Medical Managemen t 15 2024 10:45A M Chiara Maki PA-C Not available Not available Not available [facility] Phone Call 2024 02:00P M [facility] Not available Not available Not available Lab cell count w/ diff, synovial fluid 2024 025 [facility], [address] [place] [address], [id number], 09/20/2024 09:59:40 lyme disease, DNA, synovial fluid 2024 025 [facility], [address] [place] [address], [id number], 09/20/2024 16:08:25 culture, aerobic + anaerobic 2024 025 [facility], [address] [place], [id number], 09/26/2024 11:02:55 microalbu min/creat inine, ratio panel, urine 2023 024 [facility], [address] [place] [address], [id number], 10/07/2023 16:50:27 HbA1c (hemoglob in A1c), blood 2023 024 [facility], [address] [place] [address], [id number], 10/07/2023 10:08:47 Referral None recorded. Procedures None recorded. Surgeries None recorded. Imaging US, guidance [email or web address] (Imaging), [address], [place], [id number], 10/03/2024 10:25:06 Medication Orders ketoconaz ole 2 % topical cream 2024 025 [facility], [address] [place], [place], [id number], 07/18/2024 10:24:02 Patient TargetsNo targets recorded. Patient Instructions Encounter Date Encounter Id Patient Instructions Last Modified By Organization Details Last Modified Time 07/08/2023 [id number] preventing falls : care instructions Not available 07/08/2023 10:58:56 hearing loss information [email or web address] Not available 07/08/2023 10:58:56 advance directives: care instructions [email or web address] Not available 07/08/2023 10:58:57 well visit, over 65: care instructions [email or web address] Not available 07/08/2023 10:58:56 Prostate Cancer Screening was discussed. The U.S. Preventive Services Task Force advises not to make a PSA test a part of the standard exam for men ages 55-69. Instead they recommend the uncertainties about the test be discussed and ordered only if a patient still wants it. Over their lifetimes as many as 50% or more of men will develop prostate cancer but only 2% of men will of prostate cancer. For men who chose to be screened for prostate cancer if 1000 men are screened with a psa test over a 15 year period there might be 1-2 deaths prevented however 235 men will have a biopsy with risk of infection, bleeding and Pain, 100 men will have their prostate removed by surgery or radiation treatments and 60-70 of those will suffer incontinence or impotence. There is also the risk of anesthesia or radiation complications. For men over 70 prostate cancer screening offered no benefit and risked pain, worry, expense and possibly shorter life expectancy. [email or web address] Not available 07/08/2023 09:46:31 01/09/2024 [id number] - Continue with regular exercise, goal of 30 minutes 5 days per week, including 3 days of some weight bearing exercise - Try to get 7-8 hours of sleep per night - Stay well hydrated, drinking 8 glasses of water per day [email or web address] Not available 01/09/2024 11:38:58 02/29/2024 [id number] I am aware of [facility] inpatient facility discharge medications, the medication list above has been reconciled with those medications and reflects my understanding of an up to date medication list for this patient. [email or web address] Not available 02/28/2024 15:31:28 09/19/2024 [id number] Rest and ice for the next week Use ice and tylenol for pain Restart home physical therapy in approximately 7-10 days Follow-up on 09/26 at 2:50 in [place] for a recheck Seek immediate attention for any redness, fevers, chills, worsening or severe pain, or any other concerning symptoms. Not available 09/19/2024 16:32:39 All of the patients questions were answered and they understand the plan of care. Thank you for allowing me to participate in the care of your patient. Please feel free to contact me with any questions regarding their care. Not available 09/19/2024 16:33:09 Reason for Referral None Reported. Results Created Date Observation Date Name Description Value Unit Range Abnormal Flag Note LastModifiedBy Organization Detail LastModifiedTime 07/01/19 24 07/01/2023 HGB A1C hemoglobin A1C 7.5 % 4.8-6. 0 high Goal: <7% in Patie nts with Diabe rico An A1c betwe en 5.7-6 .4% is ident ified as pre-d iabet es and sugge sts risk for progr essio n to diabe rico Two a1c value s of 6.5% or highe r is consi stent with a diagn osis of diabe rico but may need furth er confi rmati on Not Available [address], [address], 07/01/2023 10:58:46 07/01/19 24 07/01/2023 HGB A1C estimated average glucose 168.6 mg/dL Not Available [address], [address], 07/01/2023 10:58:46 07/01/19 24 07/01/2023 COMP. METAB OLIC PANEL glucose 119 mg/dL 70-100 high Not Available [address], [address], 07/01/2023 12:31:37 07/01/19 24 07/01/2023 COMP. METAB OLIC PANEL BUN 25 mg/dL 7-18 high Not Available [address], [address], 07/01/2023 12:31:37 07/01/19 24 07/01/2023 COMP. METAB OLIC PANEL creatinine 1.4 mg/dL 0.8-1. 3 high Not Available [address], [address], 07/01/2023 12:31:37 07/01/19 24 07/01/2023 COMP. METAB OLIC PANEL B/C 17.9 ratio Not Available [address], [address], 07/01/2023 12:31:37 07/01/19 24 07/01/2023 COMP. METAB OLIC PANEL GFR 52.4 mL/mi n abnormal >=60m L/min - Reina l or midly reduc ed <60mL /min- Decre ased kidne y funct ion <15mL /min - Kidne y failu re [facility] calcu lates estim ated Glome rular Filtr ation Rate (eGFR ) using the Chron ic Kidne y Disea se Epide miolo gy Colla borat ion (CKD- EPI) Equat ion (David r et. al 2020) as recom fozia d by the Natio nal Kidne y Found ation . eGFR is based on age, serum creat inine , and sex. CKD-E PI does not calcu late eGFR by race, does not apply to child alma (age <18 years ), and shoul d not be used in pregn ramon. Not Available [address], [address], 07/01/2023 12:31:37 07/01/19 24 07/01/2023 COMP. METAB OLIC PANEL sodium 141 mmol/ L 136-14 5 Not Available [address], [address], 07/01/2023 12:31:37 07/01/19 24 07/01/2023 COMP. METAB OLIC PANEL potassium 4.5 mmol/ L 3.5-5. 1 Not Available [address], [address], 07/01/2023 12:31:37 07/01/19 24 07/01/2023 COMP. METAB OLIC PANEL chloride 102 mmol/ L 96-107 Not Available [address], [address], 07/01/2023 12:31:37 07/01/19 24 07/01/2023 COMP. METAB OLIC PANEL anion gap 12.2 5.0-15 .0 Not Available [address], [address], 07/01/2023 12:31:37 07/01/19 24 07/01/2023 COMP. METAB OLIC PANEL CO2 27 mmol/ L 21-32 Not Available [address], [address], 07/01/2023 12:31:37 07/01/19 24 07/01/2023 COMP. METAB OLIC PANEL calcium 9.8 mg/dL 8.5-10 .3 Not Available [address], [address], 07/01/2023 12:31:37 07/01/19 24 07/01/2023 COMP. METAB OLIC PANEL total protein 7.2 g/dL 6.4-8. 2 Not Available [address], [address], 07/01/2023 12:31:37 07/01/19 24 07/01/2023 COMP. METAB OLIC PANEL albumin 4.2 g/dL 3.4-5. 0 Not Available [address], [address], 07/01/2023 12:31:37 07/01/19 24 07/01/2023 COMP. METAB OLIC PANEL globulin 3.0 g/dL Not Available [address], [address], 07/01/2023 12:31:37 07/01/19 24 07/01/2023 COMP. METAB OLIC PANEL A/G 1.4 ratio 0.8-2. 0 Not Available [address], [address], 07/01/2023 12:31:37 07/01/19 24 07/01/2023 COMP. METAB OLIC PANEL total bilirubin 1.10 mg/dL 0.00-1 .00 high Not Available [address], [address], 07/01/2023 12:31:37 07/01/19 24 07/01/2023 COMP. METAB OLIC PANEL AST 22 U/L 0-37 Not Available [address], [address], 07/01/2023 12:31:37 07/01/19 24 07/01/2023 COMP. METAB OLIC PANEL ALT 37 U/L 6-63 Not Available [address], [address], 07/01/2023 12:31:37 07/01/19 24 07/01/2023 COMP. METAB OLIC PANEL alk. phos. 79 U/L 50-136 Not Available [address], [address], 07/01/2023 12:31:37 07/01/19 24 07/01/2023 LIPID PANEL cholesterol 149 mg/dL <200 mg/dl Glenis able 200-2 39 mg/dl Borde rline High >240 mg/dl High Not Available [address], [address], 07/01/2023 12:31:38 07/01/19 24 07/01/2023 LIPID PANEL triglyceride s 195 mg/dL <150 mg/dL Reina l 150-1 99 mg/dL Borde rline High 200-4 99 mg/dL High >500 mg/dL Very High Not Available [address], [address], 07/01/2023 12:31:38 07/01/19 24 07/01/2023 LIPID PANEL direct HDL 41 mg/dL <40 mg/dl - Major Risk for CHD >60 mg/dl - Negat solis Risk for CHD Not Available [address], [address], 07/01/2023 12:31:38 07/01/19 24 07/01/2023 URIC ACID uric acid 3.8 mg/dL 3.5-7. 2 Not Available [address], [address], 07/01/2023 12:31:40 07/01/19 24 07/01/2023 LDL - CALCU LATED LDL - calculated 69.0 RISK CATEG ORY LDL GOAL _ CHD or CHD Risk Equiv alent s <100 mg/dl (10-y ear risk >20%) 2+ Risk Facto rs <130 mg/dl (10-y ear risk <= 20%) 0-1 Risk Facto r <160 mg/dl [facility] all peopl e with 0-1 risk facto r have a 10 year risk <10%, thus 10 year risk asses ment in peopl e with 0-1 risk facto r is not tatum trejo. Not Available [address], [address], 07/01/2023 12:31:41 07/01/19 24 07/01/2023 MICRO ALBUM IN/CR EATIN INE RATIO PANEL , URINE microalbumin 92.6 mg/L 1.3-20 .0 high Not Available [address], [address], 07/01/2023 15:35:10 07/01/19 24 07/01/2023 MICRO ALBUM IN/CR EATIN INE RATIO PANEL , URINE creatinine urine 108.7 mg/dL 30.0-1 25.0 Not Available [address], [address], 07/01/2023 15:35:10 07/01/19 24 07/01/2023 MICRO ALBUM IN/CR EATIN INE RATIO PANEL , URINE microalb/cre at ratio 85.2 mg/g_ creat 0.0-29 .0 high Not Available [address], [address], 07/01/2023 15:35:10 10/07/19 24 10/07/2023 HGB A1C hemoglobin A1C 7.4 % 4.8-6. 0 high Goal: <7% in Patie nts with Diabe rico An A1c betwe en 5.7-6 .4% is ident ified as pre-d iabet es and sugge sts risk for progr essio n to diabe rico Two a1c value s of 6.5% or highe r is consi stent with a diagn osis of diabe rico but may need furth er confi rmati on Not Available [address], [address], 10/07/2023 10:08:47 10/07/19 24 10/07/2023 HGB A1C estimated average glucose 165.7 mg/dL Not Available [address], [address], 10/07/2023 10:08:47 10/07/19 24 10/07/2023 COMP. METAB OLIC PANEL glucose 152 mg/dL 70-100 high Not Available [address], [address], 10/07/2023 15:09:54 10/07/19 24 10/07/2023 COMP. METAB OLIC PANEL BUN 17 mg/dL 7-18 Not Available [address], [address], 10/07/2023 15:09:54 10/07/19 24 10/07/2023 COMP. METAB OLIC PANEL creatinine 1.3 mg/dL 0.8-1. 3 Not Available [address], [address], 10/07/2023 15:09:54 10/07/19 24 10/07/2023 COMP. METAB OLIC PANEL B/C 13.1 ratio Not Available [address], [address], 10/07/2023 15:09:54 10/07/19 24 10/07/2023 COMP. METAB OLIC PANEL GFR 57.3 mL/mi n abnormal >=60m L/min - Reina l or midly reduc ed <60mL /min- Decre ased kidne y funct ion <15mL /min - Kidne y failu re [facility] calcu lates estim ated Glome rular Filtr ation Rate (eGFR ) using the Chron ic Kidne y Disea se Epide miolo gy Colla borat ion (CKD- EPI) Equat ion (David norwood et. al 2020) as recom fozia d by the [facility] . eGFR is based on age, serum creat inine , and sex. CKD-E PI does not calcu late eGFR by race, does not apply to child alma (age <18 years ), and shoul d not be used in pregn rmaon. Not Available [address], [address], 10/07/2023 15:09:54 10/07/19 24 10/07/2023 COMP. METAB OLIC PANEL sodium 140 mmol/ L 136-14 5 Not Available [address], [address], 10/07/2023 15:09:54 10/07/19 24 10/07/2023 COMP. METAB OLIC PANEL potassium 5.0 mmol/ L 3.5-5. 1 Not Available [address], [address], 10/07/2023 15:09:54 10/07/19 24 10/07/2023 COMP. METAB OLIC PANEL chloride 104 mmol/ L 96-107 Not Available [address], [address], 10/07/2023 15:09:54 10/07/19 24 10/07/2023 COMP. METAB OLIC PANEL anion gap 8.7 5.0-15 .0 Not Available [address], [address], 10/07/2023 15:09:54 10/07/19 24 10/07/2023 COMP. METAB OLIC PANEL CO2 27 mmol/ L 21-32 Not Available [address], [address], 10/07/2023 15:09:54 10/07/19 24 10/07/2023 COMP. METAB OLIC PANEL calcium 9.5 mg/dL 8.5-10 .3 Not Available [address], [address], 10/07/2023 15:09:54 10/07/19 24 10/07/2023 COMP. METAB OLIC PANEL total protein 7.1 g/dL 6.4-8. 2 Not Available [address], [address], 10/07/2023 15:09:54 10/07/19 24 10/07/2023 COMP. METAB OLIC PANEL albumin 3.9 g/dL 3.4-5. 0 Not Available [address], [address], 10/07/2023 15:09:54 10/07/19 24 10/07/2023 COMP. METAB OLIC PANEL globulin 3.2 g/dL Not Available [address], [address], 10/07/2023 15:09:54 10/07/19 24 10/07/2023 COMP. METAB OLIC PANEL A/G 1.2 ratio 0.8-2. 0 Not Available [address], [address], 10/07/2023 15:09:54 10/07/19 24 10/07/2023 COMP. METAB OLIC PANEL total bilirubin 1.40 mg/dL 0.00-1 .00 high Not Available [address], [address], 10/07/2023 15:09:54 10/07/19 24 10/07/2023 COMP. METAB OLIC PANEL AST 26 U/L 0-37 Not Available [address], [address], 10/07/2023 15:09:54 10/07/19 24 10/07/2023 COMP. METAB OLIC PANEL ALT 47 U/L 6-63 Not Available [address], [address], 10/07/2023 15:09:54 10/07/19 24 10/07/2023 COMP. METAB OLIC PANEL alk. phos. 87 U/L 50-136 Not Available [address], [address], 10/07/2023 15:09:54 10/07/19 24 10/07/2023 MICRO ALBUM IN/CR EATIN INE RATIO PANEL , URINE microalbumin 78.2 mg/L 1.3-20 .0 high Not Available [address], [address], 10/07/2023 16:50:27 10/07/19 24 10/07/2023 MICRO ALBUM IN/CR EATIN INE RATIO PANEL , URINE creatinine urine 152.2 mg/dL 30.0-1 25.0 high Not Available [address], [address], 10/07/2023 16:50:27 10/07/19 24 10/07/2023 MICRO ALBUM IN/CR EATIN INE RATIO PANEL , URINE microalb/cre at ratio 51.4 mg/g_ creat 0.0-29 .0 high Not Available [address], [address], 10/07/2023 16:50:27 01/03/20 24 01/03/2024 HGB A1C hemoglobin A1C 7.7 % 4.8-6. 0 high Goal: <7% in Patie nts with Diabe rico An A1c betwe en 5.7-6 .4% is ident ified as pre-d iabet es and sugge sts risk for progr essio n to diabe rico Two a1c value s of 6.5% or highe r is consi stent with a diagn osis of diabe rico but may need furth er confi rmati on Not Available [address], [address], 01/03/2024 09:34:41 01/03/20 24 01/03/2024 HGB A1C estimated average glucose 174.3 mg/dL Not Available [address], [address], 01/03/2024 09:34:41 01/03/2001/03/2024 RENAL PANEL glucose 150 mg/dL 70-100 high Not Available [address], [address], 01/03/2024 14:38:43 01/03/20 24 01/03/2024 RENAL PANEL BUN 23 mg/dL 7-18 high Not Available [address], [address], 01/03/2024 14:38:43 01/03/20 24 01/03/2024 RENAL PANEL creatinine 1.3 mg/dL 0.8-1. 3 Not Available [address], [address], 01/03/2024 14:38:43 01/03/20 24 01/03/2024 RENAL PANEL B/C 17.7 ratio Not Available [address], [address], 01/03/2024 14:38:43 01/03/2001/03/2024 RENAL PANEL GFR 56.9 mL/mi n abnormal >=60m L/min - Reina l or midly reduc ed <60mL /min- Decre ased kidne y funct ion <15mL /min - Kidne y failu re [facility] calcu lates estim ated Glome rular Filtr ation Rate (eGFR ) using the Chron ic Kidne y Disea se Epide miolo gy Colla borat ion (CKD- EPI) Equat ion (David r et. al 2020) as recom fozia d by the Natio nal Kidne y Found ation . eGFR is based on age, serum creat inine , and sex. CKD-E PI does not calcu late eGFR by race, does not apply to child alma (age <18 years ), and shoul d not be used in pregn ramon. Not Available [address], [address], 01/03/2024 14:38:43 01/03/20 24 01/03/2024 RENAL PANEL sodium 142 mmol/ L 136-14 5 Not Available [address], [address], 01/03/2024 14:38:43 01/03/20 24 01/03/2024 RENAL PANEL potassium 4.7 mmol/ L 3.5-5. 1 Not Available [address], [address], 01/03/2024 14:38:43 01/03/20 24 01/03/2024 RENAL PANEL chloride 104 mmol/ L 96-107 Not Available [address], [address], 01/03/2024 14:38:43 01/03/20 24 01/03/2024 RENAL PANEL anion gap 14.4 5.0-15 .0 Not Available [address], [address], 01/03/2024 14:38:43 01/03/20 24 01/03/2024 RENAL PANEL CO2 24 mmol/ L 21-32 Not Available [address], [address], 01/03/2024 14:38:43 01/03/20 24 01/03/2024 RENAL PANEL calcium 9.5 mg/dL 8.5-10 .3 Not Available [address], [address], 01/03/2024 14:38:43 01/03/20 24 01/03/2024 RENAL PANEL albumin 4.1 g/dL 3.4-5. 0 Not Available [address], [address], 01/03/2024 14:38:43 01/03/20 24 01/03/2024 RENAL PANEL phosphorous 3.10 mg/dL 2.50-4 .90 Not Available [address], [address], 01/03/2024 14:38:43 01/03/20 24 01/03/2024 URIC ACID uric acid 3.6 mg/dL 3.5-7. 2 Not Available [address], [address], 01/03/2024 14:38:44 01/03/20 24 01/04/2024 VITAM IN B12 vitamin B12 398 pg/mL 230-10 50 Not Available [address], [address], 01/04/2024 14:54:20 07/03/19 25 07/02/2024 HGB A1C hemoglobin A1C 7.4 % 4.8-6. 0 high Goal: <7% in Patie nts with Diabe rico An A1c betwe en 5.7-6 .4% is ident ified as pre-d iabet es and sugge sts risk for progr essio n to diabe rico Two a1c value s of 6.5% or highe r is consi stent with a diagn osis of diabe rico but may need furth er confi rmati on Not Available [address], [address], 07/02/2024 10:47:46 07/03/19 25 07/02/2024 HGB A1C estimated average glucose 165.7 mg/dL Not Available [address], [address], 07/02/2024 10:47:46 07/03/19 25 07/02/2024 MICRO ALBUM IN/CR EATIN INE RATIO PANEL , URINE microalbumin 105.5 mg/L 1.3-20 .0 high VERD= Verif ied by Dilut ion. Not Available [address], [address], 07/02/2024 12:20:40 07/03/19 25 07/02/2024 MICRO ALBUM IN/CR EATIN INE RATIO PANEL , URINE creatinine urine 130.4 mg/dL 30.0-1 25.0 high Not Available [address], [address], 07/02/2024 12:20:40 07/03/19 25 07/02/2024 MICRO ALBUM IN/CR EATIN INE RATIO PANEL , URINE microalb/cre at ratio 80.9 mg/g_ creat 0.0-29 .0 high Not Available [address], [address], 07/02/2024 12:20:40 07/03/19 25 07/03/2024 BASIC METAB OLIC PANEL glucose 158 mg/dL 70-100 high Not Available [address], [address], 07/03/2024 11:16:59 07/03/19 25 07/03/2024 BASIC METAB OLIC PANEL BUN 15 mg/dL 7-18 Not Available [address], [address], 07/03/2024 11:16:59 07/03/19 25 07/03/2024 BASIC METAB OLIC PANEL creatinine 1.2 mg/dL 0.8-1. 3 Not Available [address], [address], 07/03/2024 11:16:59 07/03/19 25 07/03/2024 BASIC METAB OLIC PANEL B/C 12.5 ratio Not Available [address], [address], 07/03/2024 11:16:59 07/03/19 25 07/03/2024 BASIC METAB OLIC PANEL GFR >=60ML /MIN mL/mi n normal >=60m L/min - Reina l or midly reduc ed <60mL /min- Decre ased kidne y funct ion <15mL /min - Kidne y failu re [facility] [facility] calcu lates estim ated Glome rular Filtr ation Rate (eGFR ) using the Chron ic Kidne y Disea se Epide miolo gy Colla borat ion (CKD- EPI) Equat ion (David r et. al 2020) as recom fozia d by the Cleo glass . eGFR is based on age, serum creat inine , and sex. CKD-E PI does not calcu late eGFR by race, does not apply to child alma (age <18 years ), and shoul d not be used in pregn ramon. Not Available [address], [address], 07/03/2024 11:16:59 07/03/19 25 07/03/2024 BASIC METAB OLIC PANEL sodium 141 mmol/ L 136-14 5 Not Available [address], [address], 07/03/2024 11:16:59 07/03/19 25 07/03/2024 BASIC METAB OLIC PANEL potassium 4.6 mmol/ L 3.5-5. 1 Not Available [address], [address], 07/03/2024 11:16:59 07/03/19 25 07/03/2024 BASIC METAB OLIC PANEL chloride 104 mmol/ L 96-107 Not Available [address], [address], 07/03/2024 11:16:59 07/03/19 25 07/03/2024 BASIC METAB OLIC PANEL anion gap 12.2 5.0-15 .0 Not Available [address], [address], 07/03/2024 11:16:59 07/03/19 25 07/03/2024 BASIC METAB OLIC PANEL CO2 25 mmol/ L 21-32 Not Available [address], [address], 07/03/2024 11:16:59 07/03/19 25 07/03/2024 BASIC METAB OLIC PANEL calcium 9.5 mg/dL 8.5-10 .3 Not Available [address], [address], 07/03/2024 11:16:59 07/03/1907/03/2024 LIPID PANEL cholesterol 120 mg/dL <200 mg/dl Glenis able 200-2 39 mg/dl Borde rline High >240 mg/dl High Not Available [address], [address], 07/03/2024 11:17:00 07/03/1907/03/2024 LIPID PANEL triglyceride s 160 mg/dL <150 mg/dL Reina l 150-1 99 mg/dL Borde rline High 200-4 99 mg/dL High >500 mg/dL Very High Not Available [address], [address], 07/03/2024 11:17:00 07/03/19 25 07/03/2024 LIPID PANEL direct HDL 38 mg/dL <40 mg/dl - Major Risk for CHD >60 mg/dl - Negat solis Risk for CHD Not Available [address], [address], 07/03/2024 11:17:00 07/03/1907/03/2024 URIC ACID uric acid 3.4 mg/dL 3.5-7. 2 low Not Available [address], [address], 07/03/2024 11:17:02 07/03/1907/03/2024 LDL - CALCU LATED LDL - calculated 50 RISK CATEG ORY LDL GOAL _ CHD or CHD Risk Equiv alent s <100 mg/dl (10-y ear risk >20%) 2+ Risk Facto rs <130 mg/dl (10-y ear risk <= 20%) 0-1 Risk Facto r <160 mg/dl Almo st all peopl e with 0-1 risk facto r have a 10 year risk <10%, thus 10 year risk asses ment in peopl e with 0-1 risk facto r is not tatum acunay. Not Available [address], [address], 07/03/2024 11:17:03 09/20/19 25 09/20/2024 SYNOV IAL FLUID DIANNA SIS fluid color YELLOW pale yellow Not Available [address], [address], 09/20/2024 09:59:40 09/20/19 25 09/20/2024 SYNOV IAL FLUID DIANNA SIS fluid clarity CLOUDY clear Not Available [address], [address], 09/20/2024 09:59:40 09/20/19 25 09/20/2024 SYNOV IAL FLUID DIANNA SIS fluid viscosity MEDIUM high Not Available [address], [address], 09/20/2024 09:59:40 09/20/19 25 09/20/2024 SYNOV IAL FLUID DIANNA SIS fluid crystals FEW CALCIU M PYROPH OSPHAT E none seen Not Available [address], [address], 09/20/2024 09:59:40 09/20/19 25 09/20/2024 SYNOV IAL FLUID DIANNA SIS WBC-bf count 62363 cells /uL 0-200 high Not Available [address], [address], 09/20/2024 09:59:40 09/20/19 25 09/20/2024 SYNOV IAL FLUID DIANNA SIS RBC-bf count 3000 cells /uL 0-1000 0 Not Available [address], [address], 09/20/2024 09:59:40 09/20/19 25 09/20/2024 SYNOV IAL FLUID DIANNA SIS MN% 13.1 % 0.0-75 .0 Not Available [address], [address], 09/20/2024 09:59:40 09/20/19 25 09/20/2024 SYNOV IAL FLUID DIANNA SIS PMN% 86.9 % 0.0-25 .0 high Not Available [address], [address], 09/20/2024 09:59:40 09/20/19 25 09/20/2024 SYNOV IAL FLUID DIANNA SIS TC-bf absolute 33550 cells /uL Not Available [address], [address], 09/20/2024 09:59:40 09/20/1909/20/2024 BORRE RIAZ SPECI ES DNA, QL REAL TIME PCR, MISC source FLUID, SYNOVI AL Not Available [facility] [place] [facility] [address], [address], 09/20/2024 16:08:25 09/20/19 25 09/20/2024 BORRE RIAZ SPECI ES DNA, QL REAL TIME PCR, MISC borrelia species DNA, ql real time PCR, misc NOT DETECT ED not detect ed normal This test was devel oped and its dianna tical perfo rmanc e kadeem cteri stics have been deter mined by [facility]. It has not been clear ed or appro rivka by the FDA. This assay has been valid ated pursu ant to the CLIA regul ation s and is used for clini byron purpo ses. For addit ional infor rachelle ochoa e refer to https ://ed ucati on.qu estdi [employer]. com/f aq/fa q224 (This link is being provi ded for infor arlen parnell/ angelo tse purpo ses only. ) Not Available [facility] [place] [facility] [address], [address], 09/20/2024 16:08:25 09/20/19 25 09/26/2024 CULTU RE, AEROB IC AND ANAER OBIC W/GRA M STAIN culture, aerobic bacteria abnormal CULTU RE, AEROB IC BACTE YOAV Micro Numbe r: [id number] Test Statu s: Final Speci men Sourc e: Not given Speci men Quali ty: Adequ ate Resul t: Light growt h of Staph yloco ccus aureu s This isola te demon strat es induc ible clind amyci n resis tance . S.aur eus ----- ----- ----- - INT KATIE CIPRO FLOXA ASHLEY S <=0.5 CLIND AMYCI N R NR ERYTH ROMYC IN R 1 GENTA MICIN S <=0.5 LEVOF LOXAC IN S <=0.1 2 MOXIF LOXAC IN S <=0.2 5 OXACI LLIN S 0.5 1 TETRA CYCLI NE S <=1 TRIME THOPR IM/MENDOZA LFA S <=10 VANCO MYCIN S 1 S = Susce ptibl e I = Inter media te R = Resis tant NS = Not susce ptibl e SDD = Susce ptibl e Dose Depen dent * = Not Teste d NR = Not Repor deyanira NN = See Thera py Comme nts THERA PY COMME NTS Note 1: Oxaci llin susce ptibl e staph yloco cci are susce ptibl e to other penic illin ase-s table penic illin s (e.g. , methi cilli n, nafci llin) , beta- lacta m/bet a-lac alexandr e inhib itor combi natio ns, and cephe ms with staph yloco ccal indic ation s, inclu ding cefaz adan. Not Available [facility] [place] [facility] [address] [place], [place], [address], 09/26/2024 11:02:55 09/20/19 25 09/26/2024 CULTU RE, AEROB IC AND ANAER OBIC W/GRA M STAIN culture, anaerobic bacteria w/gram stain CULTU RE, ANAER OBIC BACTE YOAV W/GRA M STAIN Micro Numbe r: [id number] Test Statu s: Final Speci men Sourc e: Not given Speci men Quali ty: Adequ ate Gram Stain : Many White blood cells seen No organ isms seen Resul t: No anaer obes isola deyanira. Not Available [facility] [place] [facility] [address] [place], [address], 09/26/2024 11:02:55 06/28/19 24 06/28/2023 XR, knee, weigh tbear ing CLINIC AL HISTOR Y: Bilate ral knee pain. TECHNI QUE: AP, sunris e and latera l views of the right and left knees obtain ed. COMPAR SHARDA: Octobe r 2018 FINDIN GS: Right knee: No fractu re or sublux ation. . Modera te degene rative change in the right femoro tibial and patell ofemor al compar tment. Left knee: No fractu re or sublux ation. . Modera te degene rative change in the left femoro tibial and patell ofemor al compar tments .. IMPRES KEKE: Modera te tricom partme ntal osteoa rthrit is bilate ral knees. Jerald luque Physic hiral: Duane mccallum [facility] (Imaging) [address] [place], [address], 06/29/2023 10:37:01 06/28/19 24 06/28/2023 XR, hip + pelvi s, unila teral , 2 or 3 view CLINIC AL HISTOR Y: Right hip pain. TECHNI QUE: Two views of the right hip were obtain ed. An AP view of the pelvis is added. COMPAR SHARDA: None. FINDIN GS: There is no fractu re, sublux ation, or disloc ation. There is preser vation of the hip joint space. There is spurri ng at the superi or latera l right hip and also femora l neck IMPRES KEKE: Mild DJD right hip. Jerald luque Physic hiral: Duane mccallum [facility] ([facility]) [address] [place], [address], 06/29/2023 10:37:03 07/19/19 25 06/21/2024 US, echo ardio gram, trans thora cic, compl ete No observ ation record ed. [email or web address] [place] [address] And [facility] [address] [place], [address], 07/18/2024 12:38:27 Result Notes None recorded. Problems Name Problem SNOMED Code Status Onset Date Resolution Date Notes Provider Name and Address Organization Details Recorded Time Gout 27249887 Active Ermias Anderson MD [address] [place] [address], [phone] , [facility] 5 11:28:58 Mixed hyperlip idemia 551740781 [facility] 10:[facility]00 Cataract Completed 08/03/2010 Not Available [facility] 3 03:15:25 Benign essentia l hyperten keke 4938836 Active Ermias Anderson MD [address] [place] [address], , [facility] 5 11:21:19 Kidney stone 24991942 Active takes potassiu m citrate for kidney stone preventi on Ermias Anderson MD [address] [place] [address], , [facility] 5 11:20:52 Sprain of metacarp ophalang eal joint 28628566 Completed 08/03/2010 Not Available [facility] 3 03:15:25 Obesity 566086305 Completed 07/03/2019 Chiara Maki PA-C [address] [place] [address], [phone] , [facility] 0 09:54:00 Chronic kidney disease stage 3 259136168 Completed 03/20/2018 Chiara Maki PA-C [address] [place] [address], [phone] , [facility] 2 09:47:20 Diabetes mellitus 06837133 Active 2013 neuropat hy, CKD3, microalb uminuria Chiara Maki PA-C [address] [place] [address], , [facility] 2 09:47:51 Steatoti c liver disease 220185862 Active 2017 Ermias Anderson MD [address] [place] [address], , [facility] 8 13:50:50 Inflamma tion of sacroili ac joint 11056639 Active 2018 M46.1 Sacroili itis coded 08/04/18 Soo Rios LPN null, [facility] 9 13:26:39 Hearing loss 26739168 Active 2019 bilatera l hearing aids Chiara Maki PA-C [address] [place] [address], , [facility] 1 11:16:23 Osteoart hritis of knee 851394867 Active 2019 Chiara Maki PA-C [address] [place] [address], , [facility] 0 07:59:32 Morbid obesity 067173556 Active 2019 BMI > or = 35 plus diagnose s of HTN, DM and hyperlip idemia. 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 Referral to TB clinic. Resolved and workup negative , no treatmen t needed. 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 Chiara Maki PA-C [address] [place] [address], , [facility] 4 08:48:40 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 Chiara Maki PA-C [address] [place] [address], , [facility] 4 11:11:38 Atrial fibrilla tion 73405913 Active 2023 EF 45-50% 01/2024 Chiara Maki PA-C [address] [place] [address], , [facility] 4 11:21:54 Knee pyogenic arthriti s 244558793 Active 2024 [facility] [place] Soo Ringer null, [facility] 5 08:18:05 Asthenia 73895376 Active 2024 [facility] [place] Soo Ringer null, [facility] 5 08:18:23 Fall Active 2024 [facility] [place] Soo Ringer null, [facility] 5 08:18:41 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 Procedures Surgical History Date Name Laterality Status Provider Name and Address Organization Details Recorded Time 09/20/19 US Guided Knee Joint Injection completed Dawson Hemphill MD [address] [place] [address], [phone], [facility] 09/19/2024 16:33:53 07/19/19 25 Medicare Wellness Visit completed Purnima Giang [facility] 07/06/2024 11:59:32 07/19/19 25 Advanced Care Planning completed Chiara Maki PA-C [address] [place] [address], [phone], [facility] 07/18/2024 09:53:57 02/29/20 24 Post hospital/SNF follow-up/Transiti onal Care completed Purnima Giang [facility] 02/28/2024 15:31:28 07/08/19 24 Medicare Wellness Visit completed Augie Jain [facility] 07/08/2023 09:46:32 06/28/19 24 US Guided Knee Joint Injection completed Dawson Hemphill MD [address] [place] [address], [phone], [facility] 06/28/2023 09:33:44 01/26/20 22 Medicare Wellness Visit completed Purnima Giang [facility] 01/22/2022 16:08:03 01/26/20 22 Cardiovascular disease risk reduction counseling completed Purnima Giang [facility] 01/22/2022 16:08:04 01/26/20 22 Advanced Care Planning completed Chiara Maki PA-C [address] [place] [address], [phone], [facility] 01/25/2022 10:39:00 04/15/20 21 US Guided Knee Joint Injection completed Dawson Hemphill MD [address] [place] [address], [phone], [facility] 04/15/2021 14:13:46 01/22/20 21 Medicare Wellness Visit completed Lelo Soares [facility] 01/20/2021 12:31:02 01/22/20 21 prevention-cardiov ascular risk reduction counseling completed Chiara Maki PA-C [address] [place], [address], [facility] 01/21/2021 10:36:06 01/22/20 21 Advanced Care Planning completed Chiara Maki PA-C [address] [place], [address], [facility] 01/21/2021 10:36:01 01/09/20 20 Medicare Wellness Visit completed Erica Taylor [facility] 01/08/2020 17:03:24 01/09/20 20 prevention-cardiov ascular risk reduction counseling completed Erica Taylor [facility] 01/08/2020 17:03:24 01/09/20 20 prevention-annual alcohol misuse screening completed Erica Taylor [facility] 01/08/2020 17:03:24 01/09/20 20 Telephonic Visit completed Erica Taylor [facility] 01/08/2020 17:03:40 01/09/20 20 Advanced Care Planning completed Chiara Maki PA-C [address] [place], [address], [facility] 01/09/2020 09:08:53 02/15/20 19 US Guided Knee Joint Injection completed Dawson Hemphill MD [address] [place] [address], [phone], [facility] 02/14/2019 11:01:35 12/30/19 19 Medicare Wellness Visit completed Erica Taylor [facility] 12/29/2018 09:39:09 12/30/19 19 Advanced Care Planning completed Chiara Maki PA-C [address] [place] [address], [phone], [facility] 12/31/2018 18:10:40 03/20/20 18 Advanced Care Planning completed Ermias Anderson MD [address] [place] [address], [phone], [facility] 03/20/2018 11:24:11 12/14/19 18 Medicare Wellness Visit completed Anay Tucker [facility] 12/13/2017 10:25:52 12/14/19 18 Medicare Risk for Falls Screen completed Anay Tucker CMA [facility] 12/13/2017 10:31:08 12/14/19 18 Advanced Care Planning completed Anay Tucker CMA [facility] 12/13/2017 10:26:44 09/10/19 18 Medicare Risk for Falls Screen completed KRISHAN Yuan [facility] 09/09/2017 08:29:41 11/19/19 17 Medicare Wellness Visit completed Lilian Darnell LPN [facility] 11/18/2016 11:30:10 10/23/19 16 Medicare Wellness Visit completed Lilian Darnell LPN [facility] 10/23/2015 10:05:37 03/13/20 15 Knee (Right) Injection completed Ermias Anderson MD [address] [place] [address], [phone], [facility] 03/13/2015 11:13:35 10/16/19 15 Medicare Wellness Visit completed Lilian Darnell LPN [facility] 10/15/2014 11:34:14 08/17/19 14 Medicare Wellness Visit completed Lilian Darnell LPN [facility] 08/16/2013 10:24:19 08/17/19 14 Cerumen Removal completed Shannon Mejia CMA(AADE) [facility] 08/16/2013 11:17:40 Imaging Results None recorded. Procedure Notes None recorded. Medical Equipment None Reported. Allergies No known drug allergies Medications Name Sig Start Date Stop Date Status Note LastModified by Organization Details LastModified Time losartan 50 mg tablet TAKE 1 TABLET BY MOUTH EVERY MORNING active Not Available Not Available No t Available cyclobenz aprine 10 mg tablet TAKE 1 TABLET BY MOUTH THREE TIMES A DAY 12/29 completed Pt not taking 12/29/18 NMT Not Available Not Available Not Available cetirizin e 10 mg tablet TAKE 1 TABLET BY MOUTH DAILY 12/13 completed Not Available Not Available Not Available lisinopri l 20 mg tablet Take 1 tablet every day by oral route. 2011 active Not Available Not Available Not Avai lable fexofenad ine 180 mg tablet Take 1 tablet every day by oral route. active Not Available Not Available No t Available Cardizem CD 180 mg capsule,e xtended release Take 1 capsule every day by oral route. active Not Available Not Available No t Available tramadol 50 mg tablet Take 1 tablet every 6 hours by oral route. 2013 active Not Available Not Available Not Tee dumont DM-GG-pot assium citrate 10 mg-100 mg-85 mg/5 mL oral liquid active TAKE TWICE DAILY Not Available Not Available Not Available potassium 99 mg tablet Take 1 tablet every day by oral route. active for stone preventi on Not Available Not Available Not Available prednisol one acetate 1 % eye drops,jon pension INSTILL 1 DROP INTO RIGHT EYE 3 TIMES A DAY 07/04 completed not usiing 07/04/20 -sk Not Available Not Available Not Available tamsulosi n 0.4 mg capsule TAKE 1 CAPSULE BY MOUTH EVERY DAY 07/30 completed Not Available Not Available Not Available potassium citrate ER 10 mEq (1,080 mg) tablet,ex tended release TAKE 1 TABLET BY MOUTH TWICE A DAY 11/18 completed Not Available Not Available Not Available simvastat in 20 mg tablet TAKE 1 TABLET BY MOUTH EVERY DAY active Not Available Not Available No t Available lisinopri l 10 mg tablet active TAKE 1 TAB DAILY Not Available Not Available Not Available aspirin 81 mg chewable tablet Chew 1 tablet every day by oral route. 02/22 completed stopped [facility] D/[facility] Not Available Not Available Not Available allopurin ol 300 mg tablet TAKE 1 TABLET BY MOUTH EVERY DAY active Not Available Not Available No t Available ketoconaz ole 2 % topical cream APPLY TO THE AFFECTED AREA(S) BY TOPICAL ROUTE ONCE DAILY 2024 active Not Available Not Available Not Tee dumont atropine 1 % eye drops INSTILL 1 DROP INTO RIGHT EYE AT BEDTIME 07/04 completed not usiing 07/04/20 -sk Not Available Not Available Not Available lisinopri l 40 mg tablet TAKE 1 TABLET BY MOUTH EVERY DAY 05/20 completed Not Available Not Available Not Available losartan 100 mg tablet TAKE 1 TABLET BY MOUTH EVERY DAY active Not Available Not Available No t Available fluticaso ne propionat e 50 mcg/actua tion nasal spray,jon pension USE 1 SPRAY IN THE NOSE TWICE A DAY 05/20 completed Not Available Not Available Not Available metformin ER 500 mg tablet,ex tended release 24 hr TAKE 2 TABLETS BY MOUTH TWICE A DAY active Not Available Not Available No t Available naproxen 500 mg tablet Take 1 tablet twice a day by oral route. 2010 active Not Available Not Available Not Avai lable diazepam 5 mg tablet TAKE 1 TABLET BY MOUTH THREE TIMES DAILY NEEDED FOR MUSCLE SPASM 10/22 completed Not Available Not Available Not Available tobramyci n 0.3 %-dexamet hasone 0.1 % eye drops,jon pension INSTILL 1 DROP INTO RIGHT EYE TWICE A DAY USE DROPS FOR 7 DAYS THEN STOP. 07/04 completed not usiing 07/04/20 -sk Not Available Not Available Not Available cyclobenz aprine 5 mg tablet Take 1 tablet 3 times a day by oral route. 10/22 completed Not Available Not Available Not Available Restasis 0.05 % eye drops in a dropperet te INSTILL 1 DROP INTO AFFECTED EYE(S) BY OPHTHALM IC ROUTE EVERY 12 HOURS , twice daily active Not Available Not Available No t Available Klor-Con M20 mEq tablet,ex tended release TAKE ONE TABLET BY MOUTH EVERY DAY 2011 active Not Available Not Available Not Avai lable zinc 07/04 completed not usiing 07/04/20 -sk Not Available Not Available Not Available multivita min one daily, per pt active Not Available Not Available No t Available alpha lipoic acid one tablet twice a day active Not Available Not Available No t Available Eliquis 5 mg tablet Take 1 tablet twice a day by oral route. active Not Available Not Available No t Available Xiidra 5 % eye drops in a dropperet te INSTILL 2 DROP INTO BOTH EYES BY OPHTHALM IC ROUTE 2 TIMES PER DAY APPROXIM ATELY 12 HOURS APART 07/18 completed pt is not taking this medicati on was changed over to Restasis 07/18/24 mp Not Available Not Available Not Available turmeric 1000 mg daily active Not Available Not Available No t Available Vitals Date Recorded Body height Body mass index (BMI) Body weight Heart rate Systolic And Diastolic Provider Name and Address Organization Details Last Updated DateTime 07/08/2023 177.8 cm 35.3 kg/m2 751187.7 2 g 100 /min 130/80 mm[Hg] Augie Jain MA [facility] 07/08/2023 10:38:33 Date Recorded Systolic And Diastolic Provider Name and Address Organization Details Last Updated DateTime 07/18/2024 132/74 mm[Hg] Chiara Maki PA-C [address] [place] [address], [phone], [facility] 07/18/2024 12:54:11 Date Recorded Body height Body mass index (BMI) Body weight Oxygen saturation Oxygen saturation in Arterial blood by Pulse oximetry Heart rate Systolic And Diastolic Systolic And Diastolic Provider Name and Address Organization Details Last Updated DateTime 177.8 cm 35.7 kg/m2 527986. 2 g 99 % 99 % 92 /min 140/78 mm[Hg] 140/78 mm[Hg] Barbara Goodwin [facility] 5 09:40:11 Date Recorded Body height Provider Name an d Address Organization Details Last Updated DateTime 09/19/2024 177.8 cm Anabela Gordillo [facility] 09/19/2024 15:44:56 Date Recorded Systolic And Diastolic Provider Name and Address Organization Details Last Updated DateTime 01/09/2024 132/86 mm[Hg] Chiara Maki PA-C [address] [place] [address], [phone], [facility] 01/09/2024 11:36:51 Date Recorded Body height Body mass index (BMI) Body weight Heart rate Systolic And Diastolic Systolic And Diastolic Provider Name and Address Organization Details Last Updated DateTime 177.8 cm 36 kg/m2 747857. 68 g 100 /min 150/90 mm[Hg] 160/80 mm[Hg] Bertha dahl, [facility] 4 10:58:02 Date Recorded Body height Body mass index (BMI) Body weight Heart rate Systolic And Diastolic Provider Name and Address Organization Details Last Updated DateTime 02/29/2024 177.8 cm 36.9 kg/m2 624474.2 4 g 84 /min 136/70 mm[Hg] Purnima Giang [facility] 02/29/2024 14:15:24 Social History Question Answer Notes LastModified by Organizat ion Details LastModified Time Tobacco Smoking Status Former Smoker quit 1991, 30 pack years Not Available [facility] 09/24/2010 02:08:48 Do You Have An Advance Directive? No Information not available 08/05/2011 What Is Your Level Of Caffeine Consumption? Occasional 1 Cup/day, Coffee [email or web address] Information not available 12/29/2018 How Much Tobacco Do You Chew? None Information not available 10/15/2014 What Type Of Diet Are You Following? REGULAR Information not available 08/14/2012 Which Illicit Or Recreational Drugs Have You Used? None Information not available 10/15/2014 Education 12 [id number] [id number] Information not available 03/18/2011 Have There Been Any Changes To Your Family Or Social Situation? No Information not available 07/08/2023 When Did You Quit Smoking? 16+yearssince lastcigarette Information not available 10/15/2014 How Many Days In The Past Year Have You Had A Heavy Drinking Consumption (4+ Female, 5+ Male)? 0 Information not available 08/14/2012 Are There Any Guns Present In Your Home? Yes Locked [email or web address] Information not available 01/21/2015 Do You Use Insect Repellent Routinely? No [email or web address] Information not available 07/08/2023 Live Alone Or With Others? Alone [email or web address] Information not available 03/18/2011 Have Your Ever Had Any Service? Yes Information not available 07/18/2024 Patient Has Health Care Proxy Signed And In Chart Yes Sister Fady [phone], Form In Chart Information not available 08/05/2011 MOLST Form Signed And In Chart 03/20/2018 [email or web address] Information not available 07/04/2019 CCM Consent Discussion 01/25/2022 [email or web address] Information not available 01/25/2022 Marital Status Likes Living Alone Information not available 05/04/2010 Mosquito Repellent Used Routinely No [email or web address] Information not available 01/21/2015 What Was The Date Of Your Most Recent Tobacco Screening? 07/18/2024 Information not available 07/18/2024 How Many Children Do You Have? 1 Son ,Mick,-[employer], Son Jorge-05/07 [facility], He Does Some Cone Operator , A Week At A Time Sometimes Information not available 05/04/2010 What Is Your Current Pack Years? [email or web address] Information not available 10/15/2014 Seat Belts Used Routinely Yes Information not available 08/14/2012 Smoke Alarm In Home Yes Information not available 08/14/2012 Do You Have Smoke And Carbon Monoxide Detectors In Your Home? Yes Information not available 01/25/2022 Are You Passively Exposed To Smoke? No Information not available 01/25/2022 How Much Tobacco Do You Smoke? No Information not available 07/03/2019 What Types Of Sporting Activities Do You Participate In? Bowl, Occ Bike Riding Bowling Twice A Week, Rides Motorcycle Information not available 02/03/2012 General Stress Level Low [email or web address] Information not available 01/09/2020 Do You Use Sunscreen Routinely? No [email or web address] Information not available 01/21/2015 How Many Years Have You Smoked Tobacco? 30 [email or web address] Information not available 01/09/2020 Sex: Male Functional Status Question Answer Note LastModified by Organizat ion Details LastModified Time Do you or have you ever used any other forms of tobacco or nicotine? No [email or web address] Information not available 01/09/2024 What is your level of alcohol consumption? None Information not available 08/14/2012 Do you or have you ever used smokeless tobacco? 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 Never used electronic cigarettes Information not available 07/21/2021 What is your exercise level? None [email or web address] Information not available 07/08/2023 Mental Status None recorded. Family History Relationship Description Onset Age of this Age Resolved Age Notes LastModified by Organization Details LastModified Time Mother Diabetes mellitus 84 previo usly record ed as Diabet es Not available 01/22/2015 20:29:21 Sister Diabetes mellitus [email or web address] Not available 2024 09:42:51 Sister Coronary arterioscler osis [email or web address] Not available 2024 09:43:11 Sister Cerebrovascu lar accident [email or web address] Not available 09:44:23 Father Cerebrovascu lar accident 73 [email or web address] Not available 09:42:59 Father Coronary arterioscler [email or web address] Not available 2024 09:44:41 Medical History Condition Response Cataracts Y Diabetes Type II Y Gout Y Kidney Stones Y Hyperlipidemia Y Hypertension Y Immunizations Vaccine Type Date Status Note Provider Nam e and Address Organization Details Recorded Time Influenza, split virus, trivalent, preservative 2 completed Not Available On license of [facility] 05/19/2019 02:18:35 zoster live 3 completed Not Available [facility] 05/19/2019 02:16:34 Influenza, split virus, trivalent, PF 3 completed Not Available [facility] 05/19/2019 02:38:04 pneumococcal polysaccharide PPV23 3 completed Not Available On license of [facility] 05/19/2019 02:14:55 Influenza, high-dose, trivalent, PF 5 completed Not Available [facility] 05/19/2019 02:39:34 Pneumococcal conjugate PCV 13 5 completed Not Available On license of [facility] 05/19/2019 02:27:12 Influenza, high-dose, trivalent, PF 6 completed Not Available On license of [facility] 05/19/2019 02:21:04 Influenza, split virus, quadrivalent, preservative 4 completed Sera Reyes LPN [facility] 03/26/2014 10:48:36 Influenza, high-dose, trivalent, PF 7 completed Not Available [facility] 05/19/2019 02:25:40 Influenza, high-dose, trivalent, PF 8 completed Not Available On license of [facility] 05/19/2019 02:36:29 Influenza, high-dose, trivalent, PF 9 completed Not Available [facility] 05/19/2019 02:24:04 Influenza, high-dose, quadrivalent, PF 0 completed Phoenix Recinos [facility] null, [facility] 02/01/2020 14:29:29 Influenza, high-dose, quadrivalent, PF 1 completed Chiara Maki PA-C [address] [place] [address], [phone], [facility] 01/21/2021 10:37:49 Td (adult), 2 Lf tetanus toxoid, preservative free, adsorbed 1 completed Brionna Willoughby RN BSN [facility], [facility] 01/26/2021 08:39:52 Influenza, high-dose, quadrivalent, PF 2 completed Chiara Maki PA-C [address] [place] [address], [phone], [facility] 01/25/2022 10:39:23 COVID-19 vaccine, vector-nr, rS-Ad26, PF, 0.5 mL 1 completed Lelo Soares [place] null, [facility] 08/04/2020 15:44:38 Influenza, high-dose, quadrivalent, PF 3 completed Anay Tucker [facility] null, [facility] 01/20/2023 09:19:51 Influenza, high-dose, trivalent, PF 4 completed Bertha [facility], [facility] 01/09/2024 10:59:24 COVID-19 vaccine, vector-nr, rS-Ad26, PF, 0.5 mL 1 completed Keya Velazquez [facility], [facility] 04/17/2021 12:48:46 Tdap 1 completed Not Available [facility] 05/19/2019 02:15:23 Past Encounters Encounter ID Performer Location Encounter Start Date Encounter Closed Date Diagnosis/Indication Diagnosis SNOMED-CT Code Diagnosis ICD10 Code Diagnosis Note [id number] Ermias Anderson MD FP, [facility], [address] [place] [address] 05/04/2010 10:50:23 05/08/2010 11:16:27 [id number] Ana Harris NP FP, [facility], OFFICE [address] [place] [address] 06/24/2010 10:04:48 06/30/2010 14:05:54 [id number] [facility] , [facility] [address] [place] [address] 06/24/2010 10:43:41 06/25/2010 11:19:19 [id number] Ana Harris NP , [facility], OFFICE [address] [place] [address] 07/01/2010 08:50:43 07/08/2010 09:44:28 [id number] Ana Harris NP , [facility], OFFICE [address] [place] [place] [address] 07/14/2010 08:48:50 07/20/2010 14:22:50 [id number] Ermias Anderson MD , [facility], OFFICE [address] [place] [address] 08/03/2010 09:49:16 08/06/2010 11:44:12 [id number] Ermias Anderson MD , [facility], OFFICE [address] [place] [address] 01/29/2011 15:15:48 01/29/2011 16:25:16 [id number] Ermias Anderson MD , [facility], OFFICE [address] [place] [address] 08/05/2011 09:41:26 08/05/2011 11:26:15 [id number] Ermias Anderson MD , [facility], OFFICE [address] [place] [address] 02/03/2012 09:37:55 02/03/2012 10:37:03 [id number] Ermias Anderson MD , [facility], OFFICE [address] [place] [address] 08/14/2012 13:37:19 08/14/2012 15:32:56 [id number] Ermias Anderson MD , [facility], OFFICE [address] [place] [address] 10/02/2012 10:42:44 10/02/2012 11:43:43 [id number] Ermias Anderson MD , [facility], OFFICE [address] [place] [id number] 01/24/2013 07:17:47 01/24/2013 09:19:54 Influenza vaccine needed 1132772593 [id number] Ermias Anderson MD , [facility], OFFICE [address] [place] [id number] 04/02/2013 09:37:27 04/02/2013 10:22:56 Benign essential hypertension 6856022 Blood pressure at goal Chronic dney disease stage 3 825890631 Gout 53883605 Mixed hyperlipidemia 760471279 Administra tion of pneumococcal vaccine 92367736 [id number] Ermias Anderson MD , [facility], OFFICE [address] [place] [address] 08/16/2013 09:46:55 08/16/2013 11:30:42 Adult health examination 131612048 see Risk Assessment and Lifestyle Change Counseling section above Benign ess ential hypertension 0830764 Blood pressure at goal Chronic ki dney disease stage 3 868417325 Gout 71787996 no recen t flares Kidney stone 58025724 on potassium for prevention [id number] Ermias Anderson MD , [facility], OFFICE [address] [place] [id number] 02/14/2014 10:15:23 02/14/2014 11:14:21 Benign essential hypertension 5118515 Blood pressure at goal Chronic dney disease stage 3 071221239 he will cont to avoid NSAID Gout 49918824 no recen t flares, taking allopurino l Kidney stone 51153868 on potassium for prevention Knee pain 64900430 Morbid obesity 254391817 he is just shy of BMI of 40 Hyperglycemia 11740131 [id number] Ermias Anderson MD , [facility], OFFICE [address] [place] [id number] 03/26/2014 10:17:23 03/26/2014 11:34:24 Diabetes mellitus 48453346 new Dx, will work on wt loss and rechk A1C in Benign ess ential hypertension 7874570 Blood pressure at goal Hyperlipidemia 39891459 LDL is too high for DM DX [id number] Ermias Anderson MD , [facility], OFFICE [address] [place] [id number] 05/16/2014 09:39:56 05/16/2014 10:28:52 Diabetes mellitus 06248105 new Dx, will work on wt loss and rechk A1C in 1m Benign ess ential hypertension 6549197 Blood pressure at goal Hyperlipidemia 27438850 LDL is too high for DM DX, will rechk in 1m Gout 17724115 no recen t flares, taking allopurino l [id number] Ermias Anderson MD , [facility], OFFICE [address] [place] [id number] 07/23/2014 08:50:17 07/23/2014 10:21:11 Diabetes mellitus 59870217 new Dx, will work on wt loss and rechk A1C in 1m Obesity 347028929 doing well with wt loss Mixed hyperlipidemia 338377033 low LDL Benign ess ential hypertension 8694499 Blood pressure at goal Hyperlipidemia 57393479 at goal Gout 53701165 no recen t flares, taking allopurino l Knee pain 03667412 [id number] Ermias Anderson MD , [facility], OFFICE [address] [place] [id number] 10/15/2014 10:59:50 10/15/2014 12:15:50 Adult health examination 273028787 see Risk Assessment and Lifestyle Change Counseling section above Diabetes mellitus 50734817 doing well , good control, will be seeing Dr Cook next month Hyperlipidemia 74894472 his LDL is >100., he wants to rechk in 3m and if still elevated will start statins Gout 81780769 will dec to allopurino l to 150mg , alternate with 300mg q D no recent flares, taking allopurino l Benign ess ential hypertension 0480002 Blood pressure at goal [id number] Ermias Anderson MD , [facility], OFFICE [address] [place] [id number] 6 01/21/2015 10:40:04 01/21/2015 11:35:03 Diabetes mellitus 01482531 doing well , good control, diet only Hyperlipidemia 92965619 his LDL is >100., will start statins Gout 32483624 Allopuri no l 300mg q D no recent flares, taking allopurino l Benign ess ential hypertension 6153015 Blood pressure at goal [id number] Ermias Anderson MD , [facility], OFFICE [address] [place] [id number] 01/29/2015 07:25:56 01/29/2015 13:32:05 Influenza vaccine needed 4978592154 [id number] Sabrina Girma Baca , [facility], OFFICE [address] [place] [id number] 03/07/2015 15:19:26 03/07/2015 16:24:31 Edema of lower extremity 854570412 R60.0 - You are having swelling and pain in the right lower leg for the last two weeks. It is recommende d that you go to the ER tonight to be evaluated. Please follow up with an appointmen t next week. ER: edema (at home) and pain in right leg for the last two weeks. Difficult to palpate pulses on right side. Our imaging lab is closed and are unable to complete ultrasound . Patient was started on statin 6 weeks ago. [id number] Ermias Anderson MD , [facility], OFFICE [address] [place] [id number] 6 03/13/2015 09:24:03 03/13/2015 13:34:12 Active or passive immunization 710270760 Z23 Pain in lower limb 26972 006 M79.528 [id number] Ermias Anderson MD , [facility], OFFICE [address] [place] [id number] 6 04/22/2015 10:30:10 04/22/2015 11:25:03 Screening for disorder 515804031 Z11.59 Benign ess ential hypertension 2794190 I10 Blood pressure at goal Mixed hyperlipidemia 267 465845 E78.2 Cholestero l is at goal Continue to work on diet and exercise as discussed Screening for malignant neoplasm of colon 850406814 Z12.11 Referral for a DIRECT booked colonoscop y. This patient is a healthy ASA Class 1 or 2 patient (only mild systemic disease), or a STABLE, well controlled insulin dependent diabetic. They do not have serious cardiac disease ie MS/angiopl asty within 1 year, symptomati c CHF; renal failure with CKD 4 or 5; take Coumadin, Plavix, Aggrenox, etc; nor take chronic narcotics. [Patients who take chronic narcotics should be referred to [facility] for a propofol procedure due to possible inability to sedate adequately with conscious sedation.] [id number] Ermias Anderson MD , [facility], OFFICE [address] [place] [id number] 10/23/2015 09:46:47 10/23/2015 11:09:26 Adult health examination 135522636 Z00.00 see Risk Assessment and Lifestyle Change Counseling section above Counseling 793160287 Z71 .9 Benign ess ential hypertension 5169692 I10 well controlled Mixed hyperlipidemia 267 454745 E78.2 Obesity 929575707 E66.9 aware of need to loose weight Chronic ki dney disease stage 3 970527847 N18.3 stable no change Diabetes mellitus 058109 09 E11.9 diet controlled Gout 75003609 M10.9 no recent issues [id number] Ermias Anderson MD , [facility], OFFICE [address] [place] [id number] 6 01/29/2016 07:03:09 01/29/2016 09:38:03 Active or passive immunization 926008204 Z23 [id number] Ermias Anderson MD , [facility], OFFICE [address] [place] [id number] 6 04/23/2016 08:57:39 04/23/2016 09:36:33 Benign essential hypertension 8186569 I10 Blood pressure at goal Mixed hyperlipidemia 267 238255 E78.2 Obesity 865345256 E66.9 aware of need to loose weight Chronic ki dney disease stage 3 341901628 N18.3 stable no change Diabetes mellitus 209246 09 E11.9 diet controlled Gout 21938860 M10.9 no recent issues Kidney stone 33700457 N2 0.0 on potassium for prevention [id number] Ermias Anderson MD , [facility], OFFICE [address] [place] [id number] 6 11/18/2016 11:24:41 11/18/2016 12:23:05 Adult health examination 780141121 Z00.00 see Risk Assessment and Lifestyle Change Counseling section above Screening for malignant neoplasm of colon 496044473 Z12.11 Referral for a DIRECT booked colonoscop y. This patient is a healthy ASA Class 1 or 2 patient (only mild systemic disease), or a STABLE, well controlled insulin dependent diabetic. They do not have serious cardiac disease ie MS/angiopl asty within 1 year, symptomati c CHF; renal failure with CKD 4 or 5; take Coumadin, Plavix, Aggrenox, etc; nor take chronic narcotics. [Patients who take chronic narcotics should be referred to [facility] for a propofol procedure due to possible inability to sedate adequately with conscious sedation.] Benign ess ential hypertension 8845592 I10 continue to work on diet, exercise, and lowering salt intake as discussed Mixed hyperlipidemia 267 711708 E78.2 continue to work on diet and exercise as discussed Chronic ki dney disease stage 3 454432188 N18.3 stable no change Diabetes mellitus 154445 09 E11.9 diet controlled Gout 46033643 M10.9 no recent issues Kidney stone 56841426 N2 0.0 on potassium for prevention [id number] Jerel Collins MD , [facility], OFFICE [address] [place] [id number] 01/12/2017 14:56:37 01/12/2017 17:22:38 Allergic rhinitis 85965227 J30.9 -Take cetirizine daily-Flon ase 1 spray each nostril twice per day-tea with honey-stea m showers-ga rgle with salt water-foll ow up next week if no improvemen t [id number] Ermias Anderson MD , [facility], OFFICE [address] [place] [id number] 6 01/31/2017 07:20:05 01/31/2017 10:16:00 Active or passive immunization 410396101 Z23 [id number] Ermias Anderson MD , [facility], OFFICE [address] [place] [id number] 6 05/20/2017 10:21:42 05/24/2017 15:35:51 Benign essential hypertension 6015598 I10 continue to work on diet, exercise, and lowering salt intake as discussed Mixed hyperlipidemia 267 303481 E78.2 continue to work on diet and exercise as discussed Obesity 686451376 E66.9 aware of need to loose weight Chronic ki dney disease stage 3 907254465 N18.3 stable no change Cough 38948016 R05 Increased liver function 65008695 R94.5 Screening for malignant neoplasm of colon 636247016 Z12.11 Referral for a DIRECT booked colonoscop y. This patient is a healthy ASA Class 1 or 2 patient (only mild systemic disease), or a STABLE, well controlled insulin dependent diabetic. They do not have serious cardiac disease ie MS/angiopl asty within 1 year, symptomati c CHF; renal failure with CKD 4 or 5; take Coumadin, Plavix, Aggrenox, etc; nor take chronic narcotics. [Patients who take chronic narcotics should be referred to [facility] for a propofol procedure due to possible inability to sedate adequately with conscious sedation.] [id number] Ermias Anderson MD , [facility], OFFICE [address] [place] [id number] 6 06/10/2017 09:41:47 06/10/2017 11:02:29 Steatotic liver disease 080659380 K76.0 recent [place] Mixed hyperlipidemia 267 571659 E78.2 continue to work on diet and exercise as discussed Chronic ki dney disease stage 3 255231292 N18.3 stable no changeGFR 58 Benign ess ential hypertension 7317078 I10 continue to work on diet, exercise, and lowering salt intake as discussed. at goal [id number] Ermias Anderson MD , [facility], [address] [place] [address] 09/09/2017 08:21:16 09/09/2017 08:53:33 Benign essential hypertension 5474046 I10 continue to work on diet, exercise, and lowering salt intake as discussed. at goal Mixed hyperlipidemia 267 523043 E78.2 continue to work on diet and exercise as discussed Chronic ki dney disease stage 3 569418947 N18.3 stable no changeGFR 58 Diabetes mellitus 980577 09 E11.9 diet controlled Gout 86256540 M10.9 no recent issues [id number] Jorge Olmos DPM Podiatry, [address] [address] 11/29/2017 09:53:39 11/29/2017 12:03:00 Type 2 diabetes mellitus without complication 196116343 E11.9 Chronic ki dney disease stage 3 568874238 N18.3 Hypertrophy of nail 3065 4002 L60.2 [id number] Ermias Anderson MD , [facility], OFFICE [address] [place] [id number] 6 12/13/2017 10:12:55 12/13/2017 11:31:02 Adult health examination 467560395 Z00.00 see Risk Assessment and Lifestyle Change Counseling section above Depression screening 171 653066 Z13.89 depression screening tool administer ed, entered into emr, scored and discussed, time greater than 7.5 minutes Benign ess ential hypertension 4824406 I10 Blood pressure at goal Mixed hyperlipidemia 267 157032 E78.2 continue to work on diet and exercise as discussedw ell controlled Diabetes mellitus 565094 09 E11.9 diet controlled , will start metformin [id number] Ermias Anderson MD FP, [facility], OFFICE [address] [place] [id number] 6 01/26/2018 07:11:25 01/26/2018 10:21:23 Active or passive immunization 590408078 Z23 [id number] Ermias Anderson MD FP, [facility], OFFICE [address] [place] [id number] 6 03/20/2018 10:03:42 03/20/2018 11:35:35 Advance directive discussed with patient 235281155 Z71.89 Benign ess ential hypertension 4286798 I10 Blood pressure at goal Mixed hyperlipidemia 267 357400 E78.2 continue to work on diet and exercise as discussedw ell controlled Diabetes mellitus 516393 09 E11.9 doing well on metformin [id number] Sabrina FUCHS, [facility], OFFICE [address] [place] [id number] 6 07/04/2018 09:18:15 07/04/2018 09:47:26 Mixed hyperlipidemia 628992607 E78.2 - at goal of being on moderate intensity statin- discussed starting daily 81mg aspirin to lower cardiovasc ular risk Benign ess ential hypertension 1800762 I10 - blood pressure at goal of less than 140/90- continue current medication s Diabetes mellitus 110260 09 E11.9 - A1c at goal of less than 7%- continue metformin twice daily- repeat labs and follow up in six months Depression screening 171 Z13.31 - depression screening tool administer ed, entered into emr, scored and discussed, time greater than 7.5 minutes- negative screening [id number] Sabrina FUCHS, [facility], [address] [place] [address] 08/04/2018 14:15:53 08/04/2018 16:18:18 Screening for malignant neoplasm of colon 533543716 Z12.11 Inflammati on of sacroiliac joint 98094077 M46.1 Discussed pathophysi ology of acute back pain. Natural history of gradual resolution over weeks to months reviewed, often in two weeks. Recommend PT for review of ergonomics , strengthen ing, stretching , and modalities . May use over the counter nonsteroid al anti-infla mmatories as needed for pain. Can try Ibuprofen 400-600 mg every 6 hours with food or Aleve 1-2 tabs twice a day with food unless contraindi cations exist. Consider chiropract ic care. Muscle relaxants can provide symptomati c benefit for muscle spasms from the back pain. Discussed risks and benefits of muscle relaxants like cyclobenza aviva, recommend a trial at bedtime to see how you are responding to the medication s. They can cause dizziness and sleepiness . They should not be mixed with alcohol or sedating drugs. Those under their influence should not drive or operate machinery as risk of injury or accident is increased. Restrictio ns include avoiding complete bed rest. Avoid lifting > 10 lbs repeatedly if this worsens pain. May participat e in usual activities unless they make pain worse. Follow-up if numbness, tingling, weakness, incontinen ce, or fever develop or if pain fails to resolve with conservati ve care. Pain in right knee 18199 56561 78256 M25.561 - likely due to back pain, will continue to monitor for the next 1-2 weeks [id number] Sabrina FUCHS, [facility], [address] [place] [address] 12/29/2018 09:35:46 12/29/2018 10:26:33 Adult health examination 806864315 Z00.00 Counseling 706012621 Z71 .9 Depression screening 171 251772 Z13.89 - depression screening tool administer ed, entered into emr, scored and discussed, time greater than 7.5 minutes- negative screening Mixed hyperlipidemia 267 034643 E78.2 - Cholestero l is at goal - Continue to work on diet and exercise as discussed Advance di rective discussed with patient 278413134 Z71.89 - MOLST form given to take home, please return to next visit so we can discuss- health care proxy reviewed and accurate Benign ess ential hypertension 4490829 I10 - blood pressure at goal of less than 130/80- continue current medication s Hearing loss 39820129 H9 1.93 - pt will pursue further testing through the [place] Osteoarthr itis of knee 819283702 M17.9 - referral to consider joint injections , does not want surgery Obesity 069094600 E66.9 - discussed addressing nutrition, decrease junk food and ice cream Diabetes mellitus 079995 09 E11.9 - A1c at 7.0%, discussed we would need to adjust medication s if goes any higher, he will work on nutrition- continue metformin twice daily- repeat labs and follow up in six months Gout 28347149 M10.9 - stable with allopurino l [id number] Dawson Hemphill MD Sports Medicine, [facility] [address] [place] [address] 02/14/2019 09:45:36 02/15/2019 07:48:27 Active or passive immunization 815790667 Z23 Knee pain 83480787 M25.5 61 M25.562 Osteoarthr itis of knee 398174353 M17.0 Rayo is a 73-year-ol d male with bilateral knee pain secondary to osteoarthr itis. I reviewed this diagnosis with him and his sister today in the office. We discussed treatment options including physical therapy, NSAIDs, injection therapy, and surgery. Due to his pain he did undergo bilateral knee joint corticoste roid injection under ultrasound guidance today in the office. He tolerated tolerated this well without complicati on. I have asked that he ice and rest over the next week and gradually resume normal activities . I have also asked that he obtain updated knee x-rays after the office visit to evaluate for any progressio n of his osteoarthr itis. We discussed potential elevation of his blood sugars and he will call if he has any concerning symptoms. I have asked the follow-up with me as needed for further care if he has any return of his pain or symptoms. [id number] Sabrina Baca , [facility], OFFICE [address] [place] [address] 07/03/2019 09:36:11 07/03/2019 10:49:08 Essential hypertension 93833009 I10 - BP at goal of less than 130/80- continue current medication s Mixed hyperlipidemia 267 017021 E78.2 - Cholestero l is at goal of <100 - Continue to work on diet and exercise as discussed Diabetes mellitus 332487 E11.9 - A1c is at goal of <8, discussed we would need to adjust medication s if goes any higher, he will work on nutrition and exercise- continue metformin twice daily- repeat labs and follow up in six months Morbid obesity 247436027 E66.01 It is recommende d that you lose weight to lower your risk of heart conditions and to improve your overall health. Please begin to exercise for 30 minutes, 5 days per week. This may be as simple as going for a walk. Please avoid fried foods, fatty foods, and sugary drinks. [id number] Sabrina Baca , [facility], OFFICE [address] [place] [address] 01/09/2020 08:37:27 01/10/2020 13:50:06 Adult health examination 866460534 Z00.00 Counseling 137034554 Z71 .9 Cardiovasc ular risk reduction was discussed including benefits and risks of aspirin, exercise goals, healthy eating and healthy weight . Discussion greater than 7.5 minutes. Depression screening 171 107227 Z13.89 - depression screening tool administer ed, entered into emr, scored and discussed, time greater than 7.5 minutes- negative screening Screening for alcohol abuse 068425937 Z13.39 - alcohol screening tool administer ed, entered into emr, scored and discussed, time greater than 7.5 minutes Advance di rective discussed with patient 995212115 Z71.89 - MOLST form reviewed, DNR/DNI- health care proxy reviewed and accurate Essential hypertension 20261966 I10 - BP at goal of less than 130/80, will schedule for nurse BP/vitals check- continue current medication s Mixed hyperlipidemia 267 212044 E78.2 - Cholestero l is at goal of <100 - Continue to work on diet and exercise as discussed Diabetes mellitus 506867 E11.9 - A1c is at goal of <8, but upward trending consistent ly and will increase metformin dose- has diabetic eye exam scheduled with Dr. Cook Gout 26717031 M10.9 - stable with allopurino l Morbid obesity 224823247 E66.01 It is recommende d that you lose weight to lower your risk of heart conditions and to improve your overall health. Please begin to exercise for 30 minutes, 5 days per week. This may be as simple as going for a walk. Please avoid fried foods, fatty foods, and sugary drinks. [id number] Sabrina FUCHS, [facility], OFFICE [address] [place] [address] 02/01/2020 14:27:11 02/06/2020 08:03:28 Administration of influenza vaccine 24573762 Z23 [id number] Sabrina FUCHS, [facility], OFFICE [address] [place] [address] 07/04/2020 10:53:27 07/07/2020 18:25:28 Benign essential hypertension 5929187 I10 - blood pressure not at goal of less than 130/80 - continue current medication s - follow low salt diet, and start to exercise - recommend nurse BP check in one week - if still high, will increase losartan dose Diabetes mellitus 172364 09 E11.9 - A1c at goal of less than 8% - has diabetic eye exam scheduled with Dr. Cook, up to date - diabetic foot exam normal today - recommend increasing exercise Mixed hyperlipidemia 267 105783 E78.2 - Cholestero l is at goal of <100 - Continue to work on diet and exercise as discussed - continue with margarette hdz Morbid obesity 528934437 E66.01 It is recommende d that you lose weight to lower your risk of heart conditions and to improve your overall health. Please begin to exercise for 30 minutes, 5 days per week. This may be as simple as going for a walk. Please avoid fried foods, fatty foods, and sugary drinks. Chronic ki dney disease stage 3 155243890 N18.30 - stable with recent labs Iritis 32811023 H20.9 - CBC normal, will check for source of iritis - no other contributi ng symptoms [id number] Sabrina FUCHS, [facility], OFFICE [address] [place] [address] 01/21/2021 10:05:20 01/22/2021 14:25:10 Adult health examination 090942741 Z00.00 Counseling 071490427 Z71 .9 Cardiovasc ular risk reduction was discussed including benefits and risks of aspirin, exercise goals, healthy eating and healthy weight . Discussion greater than 7.5 minutes. Depression screening 171 503029 Z13.31 - depression screening tool administer ed, entered into emr, scored and discussed, time greater than 7.5 minutes- negative screening Essential hypertension 17910568 I10 - BP at goal of less than 130/80- continue current medication s Mixed hyperlipidemia 267 812961 E78.2 Cholestero l is at goal of LDL under 100Continu e to work on diet and exercise as discussed Advance di rective discussed with patient 857366524 Z71.89 - MOLST form reviewed, DNR/DNI- health care proxy reviewed and accurate Active or passive immunization 356016728 Z23 Chronic ki dney disease stage 3 230165692 N18.30 - stable with recent labs- avoid NSAIDs, stay well hydrated Diabetes mellitus 386172 09 E11.9 - A1c at goal of less than 8% - recommend increasing exercise- continue current medication s Iritis 28004930 H20.9 - resolved and labs normal Morbid obesity 320694173 E66.01 It is recommende d that you lose weight to lower your risk of heart conditions and to improve your overall health. Please begin to exercise for 30 minutes, 5 days per week. This may be as simple as going for a walk. Please avoid fried foods, fatty foods, and sugary drinks. Hearing loss 66896299 H9 1.93 - hearing aids working well [id number] Sabrina Baca , [facility], OFFICE [address] [place] [address] 01/26/2021 08:31:30 01/27/2021 10:55:29 Active or passive immunization 271317527 Z23 [id number] Dawson Hemphill MD Sports Medicine, [facility] [address] [place] [address] 04/15/2021 13:56:27 04/15/2021 15:56:42 Osteoarthritis of knee 325607564 M17.0 Rayo is a 75-year-ol d male with bilateral knee pain secondary to osteoarthr itis as seen on his x-rays. I reviewed this diagnosis with him today as well as discussing further options for treatment including physical therapy, continue use of NSAIDs, corticoste roid injections , and surgery. I did offer him a referral to physical therapy which he declined. He has done well with previous corticoste roid injections which he would like to have repeated. He did undergo bilateral knee joint corticoste roid injections under ultrasound guidance. He tolerated this well without complicati on. He will ice and rest over the next week and gradually resume normal activities . Rayo will plan to follow-up with me as needed for further care if he has return of pain in the future. Knee pain 46720189 M25.5 61 M25.467 [id number] Sabrina FUCHS, [facility], [address]ICE [address] [place] [address] 07/21/2021 09:47:04 07/21/2021 10:24:33 Diabetes mellitus 30098917 E11.8 - A1c at goal of less than 8% - recommend increasing exercise- continue current medication s Morbid obesity 799159544 E66.01 It is recommende d that you lose weight to lower your risk of heart conditions and to improve your overall health. Please begin to exercise for 30 minutes, 5 days per week. This may be as simple as going for a walk. Please avoid fried foods, fatty foods, and sugary drinks. Chronic ki dney disease stage 3 196411591 N18.30 - stable with recent labs- avoid NSAIDs, stay well hydrated Essential hypertension 13981710 I10 - BP at goal of less than 130/80- continue current medication s Mixed hyperlipidemia 267 970676 E78.2 Cholestero l is at goalContin ue to work on diet and exercise as discussed Screening for malignant neoplasm of colon 738749307 Z12.11 Diabetic p eripheral neuropathy 560267487 E11.40 - mild neuropathy , encouraged to check feet daily [id number] Sbarina FUCHS, [facility], [address]ICE [address] [place] [address] 01/25/2022 09:57:59 01/25/2022 10:42:37 Adult health examination 629587805 Z00.00 Counseling 814702295 Z71 .9 Cardiovasc ular risk reduction was discussed including benefits and risks of aspirin, exercise goals, healthy eating and healthy weight . Discussion greater than 7.5 minutes. Depression screening 171 525414 Z13.31 - depression screening tool administer ed, entered into emr, scored and discussed, time greater than 7.5 minutes Essential hypertension 21488543 I10 - BP at goal of less than 130/80- continue current medication s Mixed hyperlipidemia 267 170609 E78.2 Cholestero l is at goal, continue simvastati nContinue to work on diet and exercise as discussed Advance charley huang discussed with patient 155522588 Z71.89 - MOLST form reviewed, DNR/DNI- health care proxy reviewed and accurate Active or passive immunization 038633078 Z23 Pneumo: up to dateShingl es: Reminded available at pharmacy Diabetes mellitus 062021 09 E11.8 - A1c at goal of less than 8% but increasing - recommend increasing exercise- continue current medication s Chronic ki dney disease stage 3B 690262139 N18.32 The best way to prevent progressio n of kidney disease is to control your blood pressure and blood sugar. Please take your medication s as prescribed . Please avoid over the counter medication s called NSAIDS (Motrin, Ibuprofen, Naproxen, Aleve, etc). Drink 7-8 glasses of water per day. Morbid obesity 264455290 E66.01 It is recommende d that you lose weight to lower your risk of heart conditions and to improve your overall health. Please begin to exercise for 30 minutes, 5 days per week. This may be as simple as going for a walk. Please avoid fried foods, fatty foods, and sugary drinks.- declines nutrition Allergic rhinitis 215049 04 J30.9 - continue zaki and could trial a nasal spray like flonase [id number] Ermias Anderson MD , [facility], [address]ICE [address] [place] [address] 07/06/2022 14:23:27 07/06/2022 15:16:33 Painful urging to urinate 39305309 R30.0 hematuria and dysuria since yesterday. Gerard hematuria has resolved. He is otherwise feeling well. Hx of kidney stones. UA showing blood and protein today. Will send for culture and micro. Will also check u/s and start flomax due to hx of kidney stones. Follow up based on results. Has in person visit with pcp scheduled in a few weeks Patient instructed to push fluids, to follow up for persistent or worsening symptoms or fever or back pain. Kidney stone 87946202 N2 0.0 see above Gerard hematuria 15131406 5 R31.0 see above Essential hypertension 50511435 I10 BP above goal of <130/80 today though much higher than past visits. Taking losartan 50mg. Wants to talk to pcp for any med change. Will check BP at home and report in a week. MM scheduled with pcp in 3 weeks [id number] Sabrina FUCHS, [facility], [address]ICE [address] [place] [address] 07/30/2022 09:52:16 07/30/2022 10:29:06 Essential hypertension 12073849 I10 - BP at goal of less than 130/80- continue current medication s Diabetes mellitus 282490 09 E11.8 - A1c at goal of less than 8%, stable - recommend increasing exercise and working towards weight loss- continue current medication s Chronic ki dney disease stage 3B 825060274 N18.32 The best way to prevent progressio n of kidney disease is to control your blood pressure and blood sugar. Please take your medication s as prescribed . Please avoid over the counter medication s called NSAIDS (Motrin, Ibuprofen, Naproxen, Aleve, etc). Drink 7-8 glasses of water per day.- please stop taking NSAIDs Kidney stone 53072658 N2 0.0 - did pass one stone but has one more, stay well hydrated Gout 87232936 M10.9 - stable with allopurino l, no current symptoms Benign pro static hyperplasia 116525551 N40.0 - mild symptoms, with enlarged prostate on U/S, will check PSA Morbid obesity 440943375 E66.01 It is recommende d that you lose weight to lower your risk of heart conditions and to improve your overall health. Please begin to exercise for 30 minutes, 5 days per week. This may be as simple as going for a walk. Please avoid fried foods, fatty foods, and sugary drinks.- declines nutrition- goal of increasing steps to 2,000 per day [id number] Sabrina FUCHS, [facility], [address]ICE [address] [place] [address] 09/08/2022 11:54:13 09/09/2022 09:24:21 Screening for malignant neoplasm of colon 467482823 Z12.11 Blood in urine 11071062 R31.9 - discussed that the urologist recommende d workup of the hematuria despite his hx of stones because he has blood in the urine and we cannot rule out other causes- he requests second opinion for evaluation and referral has been sent Kidney stone 19292122 N2 0.0 - has stones and are monitoring with urology, can cause blood in the urine as discussed- stable without pain, call with any flank or abdominal pain [id number] Sabrina Baca , [facility], [address]ICE [address] [place] [address] 01/05/2023 10:30:10 01/05/2023 11:08:57 Active or passive immunization 395213557 Z23 Shingles: Reminded available at pharmacy Benign ess ential hypertension 0876134 I10 - blood pressure not at goal of less than 130/80 - continue current medication s - follow low salt diet, and start to exercise Diabetes mellitus 102222 09 E11.8 - A1c at goal of less than 8%, stable - recommend increasing exercise and working towards weight loss- continue current medication s Mixed hyperlipidemia 267 519904 E78.2 Cholestero l is at goal, continue simvastati nContinue to work on diet and exercise as discussed [id number] Sabrina Baca , [facility], [address] [place] [address] 01/20/2023 09:14:19 01/23/2023 14:34:12 Active or passive immunization 666903254 Z23 Shingles: Reminded available at pharmacy [id number] Dawson Hemphill MD Sports Medicine, [facility] [address] [place] [address] 06/28/2023 08:33:24 06/29/2023 11:26:17 Knee pain 35744217 M25.561 M25.562 Rayo is a 77-year-ol d male with bilateral knee pain due to underlying osteoarthr itis. I reviewed this diagnosis again with him today as well as discussing treatment options before and long-term. We discussed physical therapy and the use of occasions, corticoste roid injections , and surgery. Overall his right knee discomfort as well as sibling well controlled and he will continue with conservati ve management . In regards to his left knee giving like to have a repeat injection today which I feel would be appropriat e. He did undergo a left knee joint corticoste roid injection under ultrasound guidance. He tolerated this well without complicati on. He will ice and rest over the next week and resume normal activities . I did advise Ian obtain updated weightbear ing x-rays of both knees after the office visit. He will plan to monitor his blood sugars more closely over the next week and call for any elevated numbers. I am happy to see him back as needed from the care in the future. Osteoarthr itis of knee 884722707 M17.0 Rayo is a 75-year-ol d male with bilateral knee pain secondary to osteoarthr itis as seen on his x-rays. I reviewed this diagnosis with him today as well as discussing further options for treatment including physical therapy, continue use of NSAIDs, corticoste roid injections , and surgery. I did offer him a referral to physical therapy which he declined. He has done well with previous corticoste roid injections which he would like to have repeated. He did undergo bilateral knee joint corticoste roid injections under ultrasound guidance. He tolerated this well without complicati on. He will ice and rest over the next week and gradually resume normal activities . Rayo will plan to follow-up with me as needed for further care if he has return of pain in the future. [id number] Sabrina Baca , [facility], [address]ICE [address] [place] [address] 07/08/2023 10:14:46 07/08/2023 11:05:27 Adult health examination 354313290 Z00.00 Depression screening 171 575592 Z13.31 depression screening tool administer ed Screening for alcohol abuse 066227246 Z13.39 Alcohol use screening tool administer ed Screening for malignant neoplasm of prostate 212285801 Z12.5 PSA testing for ages 55-69 risks and benefits discussed test ordered. Diabetes mellitus 967949 09 E11.8 - A1c at goal of less than 8%, stable - recommend increasing exercise and working towards weight loss- continue current medication s- discussed stopping orange juice Proteinuria 12753356 R80 .9 - worsening with increasing A1c, will re-check in 3 months Gout 90147698 M10.9 - stable with allopurino l, no current symptoms Chronic ki dney disease stage 3B 002651844 N18.32 The best way to prevent progressio n of kidney disease is to control your blood pressure and blood sugar. Please take your medication s as prescribed . Please avoid over the counter medication s called NSAIDS (Motrin, Ibuprofen, Naproxen, Aleve, etc). Drink 7-8 glasses of water per day.- please stop taking NSAIDs Benign ess ential hypertension 1963671 I10 - blood pressure not at goal of less than 130/80 - continue current medication s - follow low salt diet, and start to exercise Morbid obesity 586533370 E66.01 It is recommende d that you lose weight to lower your risk of heart conditions and to improve your overall health. Please begin to exercise for 30 minutes, 5 days per week. This may be as simple as going for a walk. Please avoid fried foods, fatty foods, and sugary drinks.- declines nutrition- goal of increasing steps to 2,000 per day Diabetic p eripheral neuropathy 643947684 E11.40 - mild neuropathy , encouraged to check feet daily [id number] Sabrina FUCHS, [facility], [address]ICE [address] [place] [address] 01/09/2024 10:35:57 01/09/2024 11:49:42 Active or passive immunization 460244191 Z23 Shingles: Reminded available at pharmacyFl u: Diabetes mellitus 591365 09 E11.8 - A1c at goal of less than 8%, stable - recommend increasing exercise and working towards weight loss- continue current medication s Benign ess ential hypertension 5041948 I10 - blood pressure not at goal of less than 130/80 - continue current medication s - follow low salt diet, and start to exercise Chronic ki dney disease stage 3B 947295183 N18.32 The best way to prevent progressio n of kidney disease is to control your blood pressure and blood sugar. Please take your medication s as prescribed . Please avoid over the counter medication s called NSAIDS (Motrin, Ibuprofen, Naproxen, Aleve, etc). Drink 7-8 glasses of water per day. Cobalamin deficiency 190 460273 E53.8 - continue with B12, has helped significan tly Diabetic p eripheral neuropathy 514654284 E11.40 - mild neuropathy , encouraged to check feet daily- motorized scooter is medically necessary due to difficulty walking longer distances [id number] Sabrina FUCHS, [facility], [address] [place] [address] 02/29/2024 14:03:46 02/29/2024 14:35:17 Active or passive immunization 412829068 Z23 Shingles: Reminded available at pharmacy Essential hypertension 78469782 I10 - BP at goal of less than 130/80- losartan recently decreased to 50mg, continue current medication s- will send in home BP readings through portal Hypomagnesemia 645075429 E83.42 - hypomagnes emia during inpatient stay- likely due to metformin- instructed to start OTC magnesium supplement s 200mg at bedtime Atrial fibrillation 4943 6004 I48.91 - a. fib incidental ly found at [place], transporte d to hospital, was stabilized and started on eliquis and cardizem- discussed no NSAID use while on eliquis, no aspirin- feeling well today, no red flag sx such as chest pain, flutters, or dizziness- f/u appt with cardiology tomorrow Hypercoagu lability state 18116596 D68.59 D68.69 as above, due to a fib and on eliquis [id number] Sabrina FUCHS, [facility], [address] [place] [address] 07/18/2024 09:14:29 07/18/2024 10:00:24 Adult health examination 844681942 Z00.00 Depression screening 171 252866 Z13.31 depression screening tool administer ed Screening for alcohol abuse 997335650 Z13.39 Alcohol use screening tool administer ed Type 2 nathalie betes mellitus 87509734 E11.9 Monofila dueEye exam dueA1C 07/02/24 7.4A1c at 7.4, slight improvemen t. Urine protein slightly elevated, likely diabetic nephropath y, not concerning .- Continue metformin. - Monitor urine protein levels regularly. Active or passive immunization 374387980 Z23 Shingles: pt declines second dose 07/18/24 mp Benign ess ential hypertension 5575283 I10 - blood pressure not at goal of less than 130/80 - continue current medication s - follow low salt diet, and start to exercise Atrial fibrillation 4943 6004 I48.91 Recent echocardio gram and heart monitor. Awaiting cardiologi st follow-up on August 03.- Follow up with cardiologi st on August 03 for test results. Chronic ki dney disease stage 3B 732155805 N18.32 The best way to prevent progressio n of kidney disease is to control your blood pressure and blood sugar. Please take your medication s as prescribed . Please avoid over the counter medication s called NSAIDS (Motrin, Ibuprofen, Naproxen, Aleve, etc). Drink 7-8 glasses of water per day. Mixed hyperlipidemia 267 606816 E78.2 Cholestero l is at goal, continue simvastati nContinue to work on diet and exercise as discussed Morbid obesity 622234276 E66.01 It is recommende d that you lose weight to lower your risk of heart conditions and to improve your overall health. Please begin to exercise for 30 minutes, 5 days per week. This may be as simple as going for a walk. Please avoid fried foods, fatty foods, and sugary drinks.- declines nutrition- goal of increasing steps to 2,000 per day Tinea pedis 2189114 B35. 3 Fungal infection between toes with bleeding. Previous treatments unsuccessf ul. Requires careful management to prevent sores.- Prescribe antifungal cream to be applied once a day. Advance di rective discussed with patient 373524422 Z71.89 Advanced Care Planning 1. Advanced care planning was discussed for less than 15 minutes. 2. Participan ts included patient and they were given an opportunit y to decline discussion . 3. Health Care Proxy was discussed. 4. Patient has completed Health Care Proxy form. It was not given to take home. 5. Names(s) relationsh ip(s) of Health Care Proxy: sister 6. MOLST was discussed. 7. Patient has completed MOLST form. 8. Details of discussion : DNR/ DNI 9. Follow up needed: annual [id number] Dawson Hemphill MD Sports Medicine, [facility] [address] [place] [address] 09/19/2024 15:40:46 09/27/2024 10:41:04 Knee pain 69259108 M25.562 Rayo is a 78-year-ol d male with left knee pain as well as a large effusion and limited range of motion of uncertain etiology and prognosis. I feel the main differenti al includes septic arthritis, a flare of gout which he does have a history of, hemearthro sis, or progressio n of his underlying osteoarthr itis. I reviewed all of this with him today as well as discussing further workup options. Due to the ambiguity in his diagnosis and decision was made to perform a left knee joint aspiration under ultrasound guidance. This was tolerated well without complicati on. I will send the fluid for cell count, culture, and Lyme PCR testing. I have arranged for Rayo to have a follow-up appointmen t with me in 1 week. I gave him appropriat e precaution s for when to seek more urgent reevaluati on if he has worsening symptoms. Health Concerns Section Related Observation LastModified by Organization Detai ls LastModified Time None Recorded Concern Status LastModified by Organization Details LastModified Time None Recorded Advance Directives Directive N: Payers Insurance Date Sequence Insurance Name Policy Number Policy Burton Covered Member ID Burton Member ID Guarantor Name 09/14/2024 1 [place] [employer] Rayo Manzomichaelle [id number] Rayo Jovanycijaney 02/22/[address] [facility] [id number] Rayo Manzomichaelle [id number] Rayo Proscijaney 02/22/2024 1 [place] [id number] Rayo Manzociak [id number] Rayo Proscijaney 09/20/2024 2 [place] [id number] Rayo Michel Prosciak [id number] Rayo Prosciak 02/22/2024 3 [place] [facility] Rayo Manzocijaney [id number] Rayo Veliz Notes Date Note Type Note Provider Name and Address Organization Details Recorded Time 4 text/html Physical Exam/MaleReported bypatient.PHAPatient is here for a Wellness Visit. He describes his health status as good. Patient's health is the same as last year.Risk Assessment and Lifestyle Change Counseling 65+ (Medicare)Reported bypatient.Coronary Artery Disease Risk Assessment:Family History of Coronary Artery Disease(father);Personal history of diabetes; No history of peripheral vascular disease, AAA, or carotid disease; No personal history of coronary artery disease Breast Cancer Risk Assessment:No family history of breast cancer; No history of breast cancer or dcis Colon Cancer Risk Assessment:No family history of pre cancerous colon polyps or cancer Lung Cancer Risk Assessment:Former smoker quit more than 15 years ago Fracture Risk Assessment:No unexplained fracture; No use of corticosteroids; Has adequate calcium intake; No chronic use of proton pump inhibitors Cognitive/Behavioral Risk Assessment:No personal history of mental illness; No family history of mental illness Safety Risk Assessment:No grab bars in bathroom; Has rails on steps; No falls; No evidence of abuse/neglect Functional Status:Patient has trouble hearing the television or radio when others do not.;Patient has to strain or struggle to hear/understand conversations.; Patient does not need help with preparing meals, transportation, shopping, taking medicine, managing finances, or other activities of daily living.; Patient does not have visual loss that interferes with daily activities;Lives alone; Patient was not unsteady and did not take longer than 30 seconds during the timed get up and go test.; Patient reports no falls in the past 6 months. Diet:Counseled about appropriate portion size; Counseled about eating a diet low in trans and saturated fats and high in fiber, fruits and vegetables; Counseled about appropriate calcium intake and good dietary sources of calcium.; Counseled about decreasing carbohydrates; Counseled about decreasing salt in diet; Discussed the value of a Mediterranean diet , and eating more fruits and vegetables Exercise counseling:Discussed the importance of daily physical activity; Discussed the importance of weight bearing exercise Safety:Counseled about protecting skin from the sun and lowering the risk of skin cancer; Counseled about fall risk from throw rugs and the need for hand rails on steps and in bathVMG DiabetesReported bypatient.Duration:chronic Control:worsened since last visit; treated with diet and oral medications; Hemoglobin A1C has been 7-8; Hemoglobin A1C goal is less than 8.0; Moderate dose statin; BP usually runs 120-130/80-85 Compliance:compliant with medications; Patient understands medications are to reduce blood sugar and control diabetes;noncompliant with diet;noncompliant with exercise; Taking KODY or ARB; Taking a statin medications Barriers to Careabsence of motivation; denial Self Care:not monitoring home glucose Context:normal range of home blood sugars (in the low 100s); seeing eye doctor regularly Associated Symptoms:no weight gain; no weight loss; no dizziness; no sweats; no headaches; no confusion; no increased thirst; no increased appetite; no increased urination; no blurred vision; no coronary artery disease; no kidney disease; no peripheral vascular disease; no retinopathy;numbness of feet;calluses on feet;kidney disease;neuropathy Ability to Manage Self CarePatient feels moderately confident in ability to self manage conditionNotes:Metformin 500mg BID. A1c 7.4%, worseningVMG HyperlipidemiaReported bypatient.Duration:chronic Control:well controlled; LDL has been <100, goal is <100; treated with medications Compliance:compliant with medications Context:Diabetes Ability to Manage Self CarePatient feels confident in ability to self manage conditionNotes:Simvastatin 20mg, LDL at goal of under 70.VMG HypertensionReported bypatient.Context:No ischemic heart disease; No kidney disease; No history of CVA; No congestive heart failure; No history of transient ischemic attacks; No peripheral vascular disease;Diabetes Control:BP Goal less than (130/80); Patient understands medications are to lower blood pressure Compliance:Compliant with medications; Compliant with diet;Noncompliant with exercise(thinking about riding his bike again) Barriers to Careabsence of motivation Associated Symptoms:No chest pain; No shortness of breath; No edema; No decline in exercise capacity; No snoring Ability to Manage Self CarePatient feels confident in ability to self manage conditionNotes:CKD 3 stable, no NSAIDs 77 year old patient presents for wellness visit. 1. Kidney stone- hx of stones, passed the stone- no longer with blood in urine- takes potassium citrate for stone prevention- hydrates well- does have hx of gout 2. CKD 3- does take naproxen once in a while before bowling but not regularly- has been stable- well hydrated 3. Gout- stable with allopurinol, no recent episodes or pain- normal uric acid 4. Enlarged prostate- mild BPH symptoms, prostate enlarged on ultrasound- wakes 1-2 times per night- PSA normal 5. 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 Hemphill last week, drained some fluid as well- can walk ok without pain currently 6. Morbid Obesity- gained weight back- declines nutrition- not eating well- exercise limited but does swim in the pool in the summer Chiara Maki PA-C [address] [place] [address], [phone], [facility] 07/08/2023 16:42:36 4 text/html VMG DiabetesReported bypatient.Duration:chronic Control:worsened since last visit; treated with diet and oral medications; Hemoglobin A1C has been 7-8; Hemoglobin A1C goal is less than 8.0; Moderate dose statin; BP usually runs 120-130/80-85 Compliance:compliant with medications; Patient understands medications are to reduce blood sugar and control diabetes;noncompliant with diet;noncompliant with exercise; Taking KODY or ARB; Taking a statin medications Barriers to Careabsence of motivation; denial Self Care:not monitoring home glucose Context:normal range of home blood sugars (in the low 100s); seeing eye doctor regularly Associated Symptoms:no weight gain; no weight loss; no dizziness; no sweats; no headaches; no confusion; no increased thirst; no increased appetite; no increased urination; no blurred vision; no coronary artery disease; no kidney disease; no peripheral vascular disease; no retinopathy;numbness of feet;calluses on feet;kidney disease;neuropathy Ability to Manage Self CarePatient feels moderately confident in ability to self manage conditionNotes:Metformin 1000mg BID. A1c 7.7%, worseningVMG HyperlipidemiaReported bypatient.Duration:chronic Control:well controlled; LDL has been <100, goal is <100; treated with medications Compliance:compliant with medications Context:Diabetes Ability to Manage Self CarePatient feels confident in ability to self manage conditionNotes:Simvastatin 20mg, LDL at goal of under 70.VMG HypertensionReported bypatient.Context:No ischemic heart disease; No kidney disease; No history of CVA; No congestive heart failure; No history of transient ischemic attacks; No peripheral vascular disease;Diabetes Control:BP Goal less than (130/80); Patient understands medications are to lower blood pressure Compliance:Compliant with medications; Compliant with diet;Noncompliant with exercise(thinking about riding his bike again) Barriers to Careabsence of motivation Associated Symptoms:No chest pain; No shortness of breath; No edema; No decline in exercise capacity; No snoring Ability to Manage Self CarePatient feels confident in ability to self manage conditionNotes:CKD 3 stable, no NSAIDs 78 year old patient presents for medical management. - peripheral neuropathy - much improved with B12, sleeping much better- not eating much vegetables- started walking 1 mile a few times per week- his sister knows about diabetes so he is going to seek advice from her- would like a mobility scooter to help with longer distances CKD 3- does take naproxen once in a while before bowling but not regularly- has been stable- well hydrated Gout- stable with allopurinol, no recent episodes or pain- normal uric acid Enlarged prostate- mild BPH symptoms, prostate enlarged on ultrasound- wakes 1-2 times per night- PSA normal Bilateral Knee pain- xrays 2014, moderate to severe OA, L>R- naproxen has helped in past- had injections with Dr. Hemphill- can walk ok without pain currently Morbid Obesity- gained weight back- declines nutrition- not eating well- exercise limited but does swim in the pool in the summer Chiara Maki PA-C [address] [place] [address], [phone], [facility] 01/09/2024 11:39:11 4 text/html 02/29/24- [place] [facility] Rudy- [facility] rud[facility] given 20[facility] diltiazem on transport to [facility]- treated at [facility] with IV cardizem, got back to [facility]- echo showed EF 45-50%- discharged 02/21 on cardizem and eliquis- feeling well today- no chest pain, dizziness, light headedness, palpitations, swelling- BP and HR at home have been good, will portal in readings- has f/u with cardiology tomorrow at 9:00 am- d/c aspirin and decreased losartan from 100 to 50mg Patient has agreed to allow the participation of a professional student in today s visit. This consent allows for a professional student to: gather medical history, review present medications, review past medical history and complaints, perform non-sensitive parts of physical exam without supervising practitioner present, and participate in discussion with patient and practitioner of diagnosis and treatment plans. Student name:Augusta Type: SYLWIA Maki PA-C [address] [place] [address], [phone], [facility] 03/02/2024 09:38:09 5 text/html Physical Exam/MaleReported bypatient.PHAPatient is here for a Wellness Visit. He describes his health status as good. Patient's health is the same as last year.Risk Assessment and Lifestyle Change Counseling (Medicare)Reported bypatient.Coronary Artery Disease Risk Assessment:Family History of Coronary Artery Disease(father);Personal history of diabetes; No history of peripheral vascular disease, AAA, or carotid disease; No personal history of coronary artery disease Breast Cancer Risk Assessment:No family history of breast cancer; No history of breast cancer or dcis Colon Cancer Risk Assessment:No family history of pre cancerous colon polyps or cancer Lung Cancer Risk Assessment:Former smoker - Quit Year: Fracture Risk Assessment:No unexplained fracture; No use of corticosteroids; Has adequate calcium intake; No chronic use of proton pump inhibitors Cognitive/Behavioral Risk Assessment:No personal history of mental illness; No family history of mental illness Safety Risk Assessment:No grab bars in bathroom; Has rails on steps; No falls; No evidence of abuse/neglect Functional Status:Patient has trouble hearing the television or radio when others do not.;Patient has to strain or struggle to hear/understand conversations.; Patient does not need help with preparing meals, transportation, shopping, taking medicine, managing finances, or other activities of daily living.; Patient does not have visual loss that interferes with daily activities;Lives alone; Patient was not unsteady and did not take longer than 30 seconds during the timed get up and go test.; Patient reports no falls in the past 6 months. Diet:Counseled about appropriate portion size; Counseled about eating a diet low in trans and saturated fats and high in fiber, fruits and vegetables; Counseled about appropriate calcium intake and good dietary sources of calcium.; Counseled about decreasing carbohydrates; Counseled about decreasing salt in diet; Discussed the value of a Mediterranean diet , and eating more fruits and vegetables Exercise counseling:Discussed the importance of daily physical activity; Discussed the importance of weight bearing exercise Safety:Counseled about protecting skin from the sun and lowering the risk of skin cancer; Counseled about fall risk from throw rugs and the need for hand rails on steps and in bathVMG DiabetesReported bypatient.Duration:chronic Control:worsened since last visit; treated with diet and oral medications; Hemoglobin A1C has been 7-8; Hemoglobin A1C goal is less than 8.0; Moderate dose statin; BP usually runs 120-130/80-85 Compliance:compliant with medications; Patient understands medications are to reduce blood sugar and control diabetes;noncompliant with diet;noncompliant with exercise; Taking KODY or ARB; Taking a statin medications Barriers to Careabsence of motivation; denial Self Care:not monitoring home glucose Context:normal range of home blood sugars (in the low 100s); seeing eye doctor regularly Associated Symptoms:no weight gain; no weight loss; no dizziness; no sweats; no headaches; no confusion; no increased thirst; no increased appetite; no increased urination; no blurred vision; no coronary artery disease; no kidney disease; no peripheral vascular disease; no retinopathy;numbness of feet;calluses on feet;kidney disease;neuropathy Ability to Manage Self CarePatient feels moderately confident in ability to self manage conditionVMG HyperlipidemiaReported bypatient.Duration:chronic Control:well controlled; LDL has been <100, goal is <100; treated with medications Compliance:compliant with medications Context:Diabetes Ability to Manage Self CarePatient feels confident in ability to self manage conditionVMG HypertensionReported bypatient.Context:No ischemic heart disease; No kidney disease; No history of CVA; No congestive heart failure; No history of transient ischemic attacks; No peripheral vascular disease;Diabetes Control:BP Goal less than (130/80); Patient understands medications are to lower blood pressure Compliance:Compliant with medications; Compliant with diet;Noncompliant with exercise(thinking about riding his bike again) Barriers to Careabsence of motivation Associated Symptoms:No chest pain; No shortness of breath; No edema; No decline in exercise capacity; No snoring Ability to Manage Self CarePatient feels confident in ability to self manage condition he patient presents for wellness visit.Recent blood work indicates an A1c of 7.4, showing improvement from previous levels. Cholesterol levels are within the desired range, and uric acid levels are normal. However, urine protein levels are slightly elevated. They are currently on metformin for diabetes management.Regarding cardiovascular evaluation, there is a history of atrial fibrillation. A recent cardiology visit in June included an echocardiogram and a week-long heart monitor. Their sister, who usually accompanies them, is currently hospitalized due to a stroke and subsequent cardiovascular issues.They engage in regular physical activity, aiming to walk a mile daily, though sometimes achieving only half to three-quarters of a mile. Home blood pressure monitoring shows occasional readings in the 150s to 160s, though typically around 130/70-79. They maintain a record of these readings.A persistent fungal infection between the toes has not responded to various treatments, raising concerns about potential sores or wounds. Multiple creams have been tried without success, and they are cautious about maintaining foot health.Weight has been stable with a slight decrease noted, currently at approximately 245 pounds, down from 249 pounds. Chiara Maki PA-C [address] [place] [address], [phone], [facility] 07/18/2024 12:56:09 5 text/html Rayo is a 78-year-old male who presents today for an exacerbation of left knee pain. He was last seen in June 2023 when he underwent a corticosteroid injection. He states this produced excellent symptom relief for him. He states he has been doing quite well but was having some gradual return of discomfort over the last few months but last week developed significantly increased pain and swelling of the knee. He states the pain is primarily along the lateral knee and the knee seems very swollen. He denies any fevers or tick bites. 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 He denies any injury or trauma. He states he has had to start walking with a cane due to his pain. Dawson Hemphill MD [address] [place] [address], [phone], [facility] 09/19/2024 16:34:11
== END 2024-11-17 10:26 | disposition home or self-care (01) ==
LOC: HO.CT 10:25
DX: M11.262 Other chondrocalcinosis, left knee (principal); M00.9 Pyogenic arthritis, unspecified
CPT/HCPCS: 73700

== ENCOUNTER → 2024-11-17 10:27 | Outpatient (BNV) | payer MEDICARE, SELFPAY | PROVIDERS: Visit Provider Radiology Vascular & Interventional Radiology | DX: M17.12 Unilateral primary osteoarthritis, left knee (principal); M25.462 Effusion, left knee | CPT/HCPCS: 73700 ==

== ENCOUNTER → 2024-11-30 14:53 | Outpatient (BNV) | payer MEDICARE, SELFPAY | PROVIDERS: Visit Provider Radiology Diagnostic Radiology | DX: M17.12 Unilateral primary osteoarthritis, left knee (principal) | CPT/HCPCS: 73723 ==

== ENCOUNTER 2024-11-30 15:03 | Outpatient (REF) | payer MEDICARE, SELFPAY ==
--- NOTE | ~2024-11-30 | MR_ITS ---
EXAM: MRI LOWER EXTREMITY JOINT, left KNEE, without and with IV contrast TECHNIQUE: Multiplanar multisequence MR imaging performed through the left knee without and with IV contrast. INDICATION: Evaluate for osteomyelitis in setting of known previous septic arthritis Contrast: 10 mL Gadavist PRIOR: CT on November 17, 2024 FINDINGS: Menisci: Lateral Meniscus: Intact Medial Meniscus: The meniscal body and posterior horn appears small assessing prior partial discectomy. Interval margin is frayed and irregular. The anterior horn demonstrates patchy intermediate signal consistent with a tear. There is likely a small tear involving the femoral surface of the posterior horn. ACL/PCL: ACL is somewhat indistinct but probably grossly intact. PCL is intact. Extensor mechanism: There is thickening of the synovium which demonstrates decreased signal. There is narrowing the signal intensity debris within the dependent portion of the suprapatellar pouch. There is complex cystic fluid signal invaginating into the superior lateral fat pad of Hoffa. The Insall-Salvati ratio measured 0.8 consistent with patella baja. There is a complex 1 cm cyst with low signal intensity peripheral wall along the deep lateral margin of Hoffa's fat pad. MCL/LCL: MCL and LCL complex are intact. Articular cartilage: Patellofemoral Compartment: There is a 4 mm focal full-thickness articular cartilage defect in the lower patella, median ridge. There is an adjacent small central osteophyte. There is a shallow oblique fissure in the superior lateral facet of patella. There is extensive irregular deep partial and possibly full-thickness articular cartilage defects involving trochlea somewhat sparing the cephalad margin. Lateral Compartment: There is a 13 mm partial and full-thickness articular cartilage defect in the posterior central weightbearing region lateral femoral condyle. There is also fissuring in the far posterior superior lateral femoral condyle, along the lateral margin. There is a small focal full-thickness articular cartilage defect in the posterior lateral femoral condyle. Tibial cartilage is intact but thinned along the lateral margin of the joint. Medial Compartment: There is diffuse irregular deep partial and full-thickness articular cartilage defect involving weightbearing region of the medial femoral condyle and tibial plateau, sparing the far posterior margin. Bones/Marrow: There are mild reactive marrow signal changes in the subchondral bone of the medial femoral condyle, medial tibial plateau, tibial spines and minimally in the lateral metaphysis. There is subchondral sclerosis in the weightbearing regions of the medial compartment. There is chronic erosion involving the lateral aspect of the lateral femoral condyle. In the central metaphysis of the distal femur, just medial to midline, there is a lobulated geographic lesion measuring 1.2 x 1.7 cm (CC by transverse). On T1 imaging, demonstrates intermediate and low signal. On fluid sensitive sequence, demonstrates an intermediate signal with peripheral low and high signal. 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 There are tricompartmental marginal osteophytes. Soft tissues: There is edema in the subcutaneous soft tissues posterior, lateral, and anterior to the knee without hyperenhancement. There is patchy muscle edema most pronounced in the popliteus muscle. Popliteus muscle demonstrates hyperenhancement. MR/MR knee LT wo/w con IMPRESSION: No convincing areas of osteomyelitis. Chronic appearing erosion involving the lateral aspect of lateral femoral condyle. There is edema and hyperenhancement within popliteus muscle of uncertain significance. This could be related to a strain, though myositis is not ruled out. There is low signal intensity debris layering within the suprapatellar pouch and nonspecific mild hyperenhancement of the synovium. Severe osteoarthritis is most pronounced in the medial compartment. Marrow signal changes in the medial compartment are most consistent with degenerative/reactive marrow signal change rather than osteomyelitis. There is a degenerated and torn anterior horn medial meniscus and minimally torn posterior horn medial meniscus. The meniscus is small suggesting prior partial discectomy. No flipped meniscus is identified. ACL is ill-defined but appears grossly intact. Likely, there is chronic impingement related to notch osteophytes and peaked intercondylar spines. 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 Electronically signed by: Diony Zamarripa MD 11/30/2024 04:39 PM EDT
== END 2024-11-30 15:04 | disposition home or self-care (01) ==
LOC: HO.MRI 15:03
DX: M00.9 Pyogenic arthritis, unspecified (principal); M11.262 Other chondrocalcinosis, left knee
CPT/HCPCS: 73723; A9585

== ENCOUNTER 2024-12-10 15:11 | Outpatient (AMB) | payer MEDICARE, SELFPAY ==
--- NOTE | 2024-12-10 15:11 | A.OFFVIS_ITS ---
Vital Signs 12/10/24 15:24 Height 5 ft 10 in Weight 241 lb BMI 34.6 Intake Visit Reasons: PO: LT knee Debridement & lavage 09/24/24 NE Intake Note: Rayo is a 78 year old male who presents today for a post operative visit status post left knee arthroscopic debridement and lavage, DOS: 09/24/[address] Cervantes. At his last visit he was given an order for PT and a CT Scan was ordered to assess OA. Based on CT scan results, an MRI was also ordered. Patient reports pain below the knee. He is still using a walker to ambulate. A wheelchair was used to bring in patient in from the handicap parking spaces. Allergies shrimp Allergy (Verified 12/10/24 15:24) Anaphylaxis HPI HPI PO: LT knee Debridement & lavage 09/24/24 NE: Details: Rayo is a 78 year old male who presents today for a post operative visit status post left knee arthroscopic debridement and lavage, DOS: 09/24/[address] Cervantes. At his last visit he was given an order for PT and a CT Scan was ordered to assess OA. Based on CT scan results, an MRI was also ordered. Patient reports pain below the knee. He is still using a walker to ambulate. A wheelchair was used to bring in patient in from the handicap parking spaces. Patient reports significant improvement in his ability to ambulate, range of motion, and pain, of which he is experiencing very little at baseline. Patient reports that he is now at home with home PT, OT, and visiting nursing services. [facility] Medical History (Updated 10/05/24 @ 00:01 by Consuelo Greer) CKD (chronic kidney disease) MSSA bacteremia Hyperlipidemia Gout History of kidney stones Diabetes mellitus Benign essential hypertension OA (osteoarthritis) Iritis Chronic kidney disease, stage 3b Sensorineural hearing loss Social History Household Members: None Housing: House Do you presently have visiting nurse or other home services: No Patient Tobacco Use Status: Never used Tobacco e-Cigarette/Vaping Use: Former Use service: Yes Review of Systems Const All systems reviewed & are unremarkable except as noted in HPI and below Physical Exam Vital Signs: BMI result Body Mass Index 34.6 Last Vital Signs Temp 97.7 F 09/26/24 07:02 Pulse 95 09/26/24 07:02 Resp 18 09/26/24 07:02 BP 138/65 09/26/24 07:02 Pulse Ox 95 09/26/24 07:02 O2 Del Method Room Air 09/26/24 07:02 O2 Flow Rate 6 09/24/24 12:09 BMI result Body Mass Index 34.6 Const General: cooperative, healthy appearing and no acute distress Resp Effort & Inspection: normal respiratory effort and able to speak in complete sentences Cardio Rate: regular rate Peripheral pulses: Peripheral pulses 2+ throughout GI Palpation (GI): Soft to palpation Skin General skin exam: no rashes or lesions noted Extrem Other: Left knee incision clean, dry and intact. No active drainage, sutures intact. NVI. Left knee is slightly edematous, no erythema or other evidence of infection. Patient is able to actively flex the left knee to approximately 100 degrees, can extend actively to approximately 5 degrees. All range of motion is without difficulty. Patient is able to ambulate with a walker in the room today, appears to be putting almost full weight if not full weight on the left lower extremity while ambulating. Minimal antalgia noted. Results Reviewed Results Reviewed: MR/MR knee LT wo/w con IMPRESSION: No convincing areas of osteomyelitis. Chronic appearing erosion involving the lateral aspect of lateral femoral condyle. There is edema and hyperenhancement within popliteus muscle of uncertain significance. This could be related to a strain, though myositis is not ruled out. There is low signal intensity debris layering within the suprapatellar pouch and nonspecific mild hyperenhancement of the synovium. Severe osteoarthritis is most pronounced in the medial compartment. Marrow signal changes in the medial compartment are most consistent with degenerative/reactive marrow signal change rather than osteomyelitis. There is a degenerated and torn anterior horn medial meniscus and minimally torn posterior horn medial meniscus. The meniscus is small suggesting prior partial discectomy. No flipped meniscus is identified. ACL is ill-defined but appears grossly intact. Likely, there is chronic impingement related to notch osteophytes and peaked intercondylar spines. 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 Electronically signed by: Diony Zamarripa MD 11/30/2024 04:39 PM EDT Assessment & Plan Assessment & Plan (1) Pseudogout of left knee: Code(s): M11.262 - Other chondrocalcinosis, left knee Category: Medical (2) Arthritis, septic, knee: Code(s): M00.9 - Pyogenic arthritis, unspecified Category: Medical (3) Fall: Code(s): W19.XXXA - Unspecified fall, initial encounter Category: Medical Plan 1. Pseudogout with superimposed infection of the left knee Status post arthroscopic debridement and lavage DOS 09/24/2024 Patient appears to be recovering somewhat well postoperatively Continue working on range of motion Continue working with PT Continue working on ambulation MRI demonstrated no concerning areas for osteomyelitis, however did demonstrate severe degenerative changes that were likely worsened by his infection Patient should continue working with physical therapy and occupational therapy to improve his ambulation Patient and his sister understand this and are amenable to this plan Follow-up in 4-6 weeks, sooner with any acute concerns Coding Level of Care Code Global (26201) Diagnoses Pseudogout of left knee M11.262 Arthritis, septic, knee M00.9 Fall W19.XXXA
[2024-12-10 15:24] VITALS: BMI 34.6
--- OUTSIDE RECORDS SUMMARY | 2024-12-10 15:29 | XMS_ITS | Encounter Summary ---
Author Organization [facility] Address [address] [place] [address] [place] [phone] Phone Care Team Providers Care Can Operator Name Role Phone Vickie Leon NP Primary Care Provider [phone] Encounter Details Date Type Department Care Team (Late st Contact Info) Description 04/24/2024 Procedure Pass Echo [facility] [address] [place] [address] Social History Tobacco Use Types Packs/Day Years Used Date Smoking Tobacco: Former Cigarettes Smokeless Tobacco: Never Alcohol Use Standard Drinks/Week Comments Not Currently [...] on file Sexual Orientation Not on file documented as of this encounter Plan of Treatment Upcoming Encounters Date Type Department Care Team (Late st Contact Info) Description 12/11/2024 2:30 AM EDT Home Care Visit [facility] [address] [place] [phone] Juliet Carson RN [address] [place] [address] 12/12/2024 10:00 AM EDT Home Care Visit [facility] [address] [place] [phone] Janelle Polk, OT [address] [place] [address] [email or web address] 12/17/2024 Home Care Visit [facility] [address] [place] [phone] Juliet Carson RN [address] [place] [address] 12/17/2024 1:30 AM EDT Home Care Visit [facility] [address] [place] [phone] Janelle Polk, OT [address] [place] [address] [email or web address] 12/19/2024 12:45 AM EDT Home Care Visit [facility] [address] [place] [phone] Janelle Polk, OT [address] [place] [address] [email or web address] 12/24/2024 12:30 AM EDT Home Care Visit [facility] [address] [place] [phone] Juliet Carson, LILLIAN [address] [place] [address] 12/31/2024 12:30 AM EDT Home Care Visit [facility] [address] [place] [phone] Juliet Carson, LILLIAN [address] [place] [address] 01/07/2025 12:30 AM EDT Home Care Visit [facility] [address] [place] [phone] Juliet Carson RN [address] [place] [address] 01/14/2025 12:30 AM EDT Home Care Visit [facility] [address] [place] [phone] Juliet Carson RN [address] [place] [phone] 01/21/2025 Appointment [facility] [address] [place] [phone] Juliet Carson RN [address] [place] [phone] 02/05/2025 10:30 AM EDT Office Visit [facility] [address] [place] [address] [address]rd Floor, [address] [place] [phone] Vickie Awan DNP 22 [facility], [address] [address] documented as of this encounter Visit Diagnoses Not on filedocumented in this encounter Care Teams Can Operator Relationship Specialty Start Date End Date Vickie Leon NP [address] [place] [address] PCP - General Nurse Practitioner 02/22/24 documented as of this encounter Additional Source Comments The information contained in this document represents components of the legal health record. It is not the complete legal health record.[facility]
== END 2024-12-10 15:43 | disposition home or self-care (01) ==
LOC: HO.HOS 15:11
DX: M11.262 Other chondrocalcinosis, left knee (principal); M00.9 Pyogenic arthritis, unspecified; W19.XXXA Unspecified fall, initial encounter
CPT/HCPCS: 99024

== ENCOUNTER → 2024-12-10 15:11 | Outpatient (BNVA) | payer MEDICARE, SELFPAY | DX: M00.9 Pyogenic arthritis, unspecified (principal); M11.262 Other chondrocalcinosis, left knee; Z91.81 History of falling; Z98.890 Other specified postprocedural states | CPT/HCPCS: 99212 ==

== ENCOUNTER 2025-03-04 11:24 | Outpatient (AMB) | payer MEDICARE, SELFPAY ==
[2025-03-04 11:31] VITALS: BMI 34.6
--- NOTE | 2025-03-04 11:31 | A.OFFVIS_ITS ---
Vital Signs 03/04/25 11:31 Height 5 ft 10 in Weight 241 lb BMI 34.6 Intake Visit Reasons: PO: LT knee Debridement & lavage 09/24/24 NE Intake Note: Rayo is a 79 year old male who presents today for follow up status post Left Knee Arthroscopic Debridement and Lavage, DOS: 09/24/[address] Cervantes. At his last visit, 12/10/24, he was advised to continue Physical Therapy, working on ambulation, and to follow up in 4-6 weeks. States he is doing better however he is now having pain in his right knee due to over compensating for his left, he is no linger at a rehab facility. Allergies shrimp Allergy (Verified 03/04/25 11:41) Anaphylaxis HPI HPI PO: LT knee Debridement & lavage 09/24/24 NE: Details: Rayo is a 79 year old male who presents today for follow up status post Left Knee Arthroscopic Debridement and Lavage, DOS: 09/24/[address] Cervantes. At his last visit, 12/10/24, he was advised to continue Physical Therapy, working on ambulation, and to follow up in 4-6 weeks. States he is doing better however he is now having pain in his right knee due to over compensating for his left, he is no linger at a rehab facility. Patient states that he does not have much pain in the left knee anymore, and feels he has made tremendous improvement. No other acute complaints or concerns at this time. [facility] Medical History (Updated 10/05/24 @ 00:01 by Consuelo Greer) CKD (chronic kidney disease) MSSA bacteremia Hyperlipidemia Gout History of kidney stones Diabetes mellitus Benign essential hypertension OA (osteoarthritis) Iritis Chronic kidney disease, stage 3b Sensorineural hearing loss Social History Household Members: None Housing: House Do you presently have visiting nurse or other home services: No Patient Tobacco Use Status: Never used Tobacco e-Cigarette/Vaping Use: Former Use service: Yes Review of Systems Const All systems reviewed & are unremarkable except as noted in HPI and below Physical Exam Vital Signs: BMI result Body Mass Index 34.6 Last Vital Signs Temp 97.7 F 09/26/24 07:02 Pulse 95 09/26/24 07:02 Resp 18 09/26/24 07:02 BP 138/65 09/26/24 07:02 Pulse Ox 95 09/26/24 07:02 O2 Del Method Room Air 09/26/24 07:02 O2 Flow Rate 6 09/24/24 12:09 BMI result Body Mass Index 34.6 Const General: cooperative, healthy appearing and no acute distress Resp Effort & Inspection: normal respiratory effort and able to speak in complete sentences Cardio Rate: regular rate Peripheral pulses: Peripheral pulses 2+ throughout GI Palpation (GI): Soft to palpation Skin General skin exam: no rashes or lesions noted Extrem Other: Left knee incision clean, dry and intact. No active drainage, sutures intact. NVI. Left knee is slightly edematous, no erythema or other evidence of infection. Patient is able to actively flex the left knee to approximately 120 degrees, can extend actively to 0 degrees. All range of motion is without difficulty. Patient is able to ambulate with a cane in the room today, appears to be nonantalgic gait. Assessment & Plan Assessment & Plan (1) Pseudogout of left knee: Code(s): M11.262 - Other chondrocalcinosis, left knee Category: Medical (2) Arthritis, septic, knee: Code(s): M00.9 - Pyogenic arthritis, unspecified Category: Medical (3) Fall: Code(s): W19.XXXA - Unspecified fall, initial encounter Category: Medical Plan 1. Pseudogout with superimposed infection of the left knee Status post arthroscopic debridement and lavage DOS 09/24/2024 Patient appears to be recovering very well postoperatively Continue working on range of motion Continue working with PT Continue working on ambulation Patient should continue working with physical therapy and occupational therapy to improve his ambulation Patient and his sister understand this and are amenable to this plan Follow-up as needed with any acute concerns Coding Level of Care Code Est Pt Level 3 (76906) Diagnoses Pseudogout of left knee M11.262 Arthritis, septic, knee M00.9 Fall W19.XXXA
--- OUTSIDE RECORDS SUMMARY | 2025-03-04 14:33 | XMS_ITS | Clinical Summary ---
Author Organization [facility] Address [address] [place], [place] [id number] Phone Care Team Providers Care Bag Bleacher Name Role Phone Vickie Leon NP Primary Care Provider [phone] [phone] Allergies Active Allergy Reactions Criticality Noted Date [...] every morning. 30 tablet 3 4 Active apixaban (ELIQUIS) 5 mg tablet Take 1 tablet (5 mg total) by mouth 2 (two) times a day. 60 tablet 3 4 Active cycloSPORINE (RESTASIS) 0.05 % suspension Apply to eye. 4 Active fexofenadine (URIAH) 180 MG tablet Take 1 tablet by mouth daily. Active potassium chloride (KLOR-CON) 20 mEq packet Take by mouth. 4 Active cholecalciferol (VITAMIN D3) 25 MCG (1,000 unit) tablet Take 1,000 Units by mouth daily. Active turmeric 400 mg Cap Take by mouth. Active glucosamine-nguyễn droitin 500-400 mg Cap Take 1 capsule by mouth 3 (three) times a day. Active acetaminophen (TYLENOL) 325 mg tablet Take 650 mg by mouth every 6 (six) hours as needed for pain (specific location in comments). 5 Active alpha lipoic acid 300 mg Cap Take 300 mg by mouth daily. 5 Active metoprolol succinate (TOPROL-XL) 50 MG 24 hr tablet Take 1 tablet (50 mg total) by mouth daily. 30 tablet 11 5 Active dilTIAZem (TIAZAC) 180 MG 24 hr capsule Take 1 capsule (180 mg total) by mouth daily. 30 capsule 3 4 02/07/20 25 Discontin ued(No longer taking) diclofenac sodium (VOLTAREN) 1 % Gel Apply 2 g topically 2 (two) times a day. 5 02/06/20 25 Discontin ued(No longer taking) nitrofurantoin (MACROBID) 100 MG capsule Take 100 mg by mouth 2 (two) times a day. 5 02/06/20 25 Discontin ued(No longer taking) Active Problems Problem Noted Date Diagnosed Date Bilateral leg edema 02/05/2025 Assessment & Plan (02/05/2025 11:01 AM EDT): He is really sitting around a lot more and I have noticed that he does have +3-4 bilateral leg edema which seems to be new for him. He is a poor historian and cannot tell me if this is been present in the past. He has been doing very little ambulation since his knee surgery. He is also on diltiazem which could be also causing him leg edema. He has had an elevated proBNP in the past as well. We are going to do a proBNP and a BMP today. Based on those numbers will determine whether we put him on any furosemide. We may also discontinue his diltiazem and put him on something like metoprolol to see if this helps improve his edema. If edema does not improve despite Lasix and or discontinuing diltiazem we may do a venous duplex study to see if this may be playing a role in his edema. He will be unable to wear compression socks. He was recommended to start moving more and elevate his legs a little bit more. He is also has been eating a lot of sodium which I have asked him to cut back on. Atrial fibrillation 02/21/2024 Assessment & Plan (02/05/2025 11:00 AM EDT): Has a history for atrial fibrillation. He is on apixaban 5 mg twice daily. EKG today shows sinus rhythm without any atrial fibrillation though his rate is a little elevated 105 bpm. He is on diltiazem 180 mg daily. Assessment & Plan (02/21/2024 3:22 PM EDT): [...] point) HTN (hypertension) 02/21/2024 Assessment & Plan (02/05/2025 11:00 AM EDT): Blood pressure is mildly elevated today 142/80. He is on diltiazem 180 mg daily which we may change due to bilateral leg edema. Assessment & Plan (02/21/2024 3:18 PM EDT): [...] Encounters Date Type Department Care Team Description 02/05/2025 10:58 AM EDT - 02/05/2025 11:59 PM EDT Hospital Encounter [facility] [address] [place] [address] Vickie Awan DNP Discharge Disposition: Home or Self Care 02/05/2025 10:30 AM EDT Office Visit [facility] [address] Floor, [address] [place] [address] Vickie Awan DNP Paroxysmal atrial fibrillation (Primary Dx); Screening cholesterol level; Bilateral leg edema; Chronic kidney disease, unspecified CKD stage; Hypertension, unspecified type 01/25/2025 Home Care Visit [facility] [address] [place] [phone] Jessica Barba, PT TELEPHONE ENCOUNTER 01/24/2025 3:00 PM EDT Home Care Visit [facility] [address] [place] [phone] Jessica Barba, PT PT OASIS DISCHARGE VISIT 01/22/2025 2:00 PM EDT Home Care Visit [facility] [address] [place] [phone] Jessica Barba, PT PT HOME VISIT 01/17/2025 3:00 PM EDT Home Care Visit [facility] [address] [place] [phone] Jessica Barba, PT PT HOME VISIT 01/15/2025 2:30 PM EDT Home Care Visit [facility] [address] [place] [phone] Dinora Terry, PT PT HOME VISIT 01/08/2025 1:30 PM EDT Home Care Visit [facility] [address] [place] [phone] Jessica Barba, PT PT TFA VISIT 01/03/2025 10:30 AM EDT Home Care Visit [facility] [address] [place], [place] [phone] Jessica Barba, PT PT HOME VISIT 01/01/2025 2:15 AM EDT Home Care Visit [facility] [address], [place] [phone] Jessica Barba, PT PT HOME VISIT 12/28/2024 10:00 AM EDT Home Care Visit [facility] [address], [place] [phone] Fatoumata Hayes, KARINA EMAIL MARKETING EXECUTIVE EVALUATION 12/28/2024 Home Care Visit [facility] [address], [place] [phone] Fatoumata Hayes, STEAM TURBINE OPERATOR EMAIL MARKETING EXECUTIVE DISCIPLINE DISCHARGE NON VISIT/TELEPHONE 12/27/2024 9:00 AM EDT Home Care Visit [facility] [address], [place] [phone] Janelle Polk, OT OT DISCIPLINE DISCHARGE VISIT 12/26/2024 9:00 AM EDT Home Care Visit [facility] [address], [place] [phone] Emily Landa, PT PT HOME VISIT 12/25/2024 11:00 AM EDT Home Care Visit [facility] [address], [place] [phone] Janelle Polk, OT OT HOME VISIT 12/25/2024 Home Care Visit [facility] [address], [place] [phone] Fatoumata Hayes, STEAM TURBINE OPERATOR TELEPHONE ENCOUNTER 12/24/2024 2:15 PM EDT Home Care Visit [facility] [address], [place] [phone] Emily Landa, PT PT HOME VISIT 12/21/2024 12:30 PM EDT Home Care Visit [facility] [address], [place] [phone] Janelle Polk, OT OT HOME VISIT 12/21/2024 Home Care Visit [facility] [address], [place] [phone] Fatoumata Hayes, STEAM TURBINE OPERATOR TELEPHONE ENCOUNTER 12/20/2024 10:30 AM EDT Home Care Visit [facility] [address], [place] [phone] Jessica Barba, PT PT HOME VISIT 12/19/2024 12:30 PM EDT Home Care Visit [facility] [address] [place] [address] Janelle Polk, OT OT HOME VISIT 12/19/2024 10:00 AM EDT Home Care Visit [facility] [address] [place] [address] Juliet Carson, RN SN DISCIPLINE DISCHARGE VISIT 12/17/2024 11:00 AM EDT Home Care Visit [facility] [address] [place] [address] Jessica Barba, PT PT HOME VISIT 12/14/2024 12:30 PM EDT Home Care Visit [facility] [address] [place] [address] Jessica Barba, PT PT HOME VISIT 12/13/2024 Home Care Visit [facility] [address], [place] [phone] Jessica Barba, PT TELEPHONE ENCOUNTER 12/12/2024 10:00 AM EDT Home Care Visit [facility] [address], [place] [phone] Janelle Polk, OT OT HOME VISIT 12/11/2024 1:30 PM EDT Home Care Visit [facility] [address] [place] [phone] Jessica Barba, PT PT EVALUATION 12/11/2024 11:00 AM EDT Home Care Visit [facility] [address] [place] [address] Juliet Carson, RN SN HOME VISIT 12/11/2024 Episode Documentation Update [facility] [address] [place] [phone] GonzalesJonathan ames Jorge 12/10/2024 12:00 PM EDT Home Care Visit [facility] [address] [place] [phone] Janelle Polk, OT OT HOME VISIT 12/06/2024 12:00 PM EDT Home Care Visit [facility] [address] [place] [phone] Janelle Polk, OT OT HOME VISIT 12/04/2024 10:00 AM EDT Home Care Visit [facility] [address] [place] [phone] Juliet Carson, LLILIAN SN HOME VISIT 12/03/2024 3:00 PM EDT Home Care Visit [facility] [address] [place] [phone] Janelle Polk, OT OT EVALUATION 12/02/2024 Home Care Visit [facility] [address] [place] [phone] Piper Wise, PT TELEPHONE ENCOUNTER from Last 3 Months Family History Medical History Relation Comments Heart failure Father Diabetes Mother Relation Status Comments Father Mother Social History Tobacco Use Types Packs/Day Years Used Date Smoking Tobacco: Former Cigarettes Smokeless Tobacco: Never Tobacco Cessation:Counseling Given: Not Answered Alcohol Use Standard Drinks/Week Comments Not Currently 0 (1 standard drink = 0.6 oz pur e alcohol) Home Health Assessment: Transportation Answer Date Recorded Lack of Transportation (Medical) No 01/24/2025 Lack of Transportation (Non-Medical) No 01/24/2025 Patient Unable or Declines to Respond No 01/24/2025 Education Answer Date Recorded Are you interested [...] Sign Reading Time Taken Comments Blood Pressure 142/80 02/05/2025 10:27 AM EDT Pulse 111 02/05/2025 10:27 AM EDT Temperature 36.6 C (97.9 F) 01/24/2025 3:26 PM EDT Respiratory Rate 14 01/24/2025 3:26 PM EDT Oxygen Saturation 98% 02/05/2025 10:27 AM EDT Inhaled Oxygen Concentration - - Weight 104.3 kg (230 lb) 02/05/2025 10:27 AM EDT Height 170.2 cm (5' 7 ) 02/05/2025 10:27 AM EDT Body Mass Index 36.02 02/05/2025 10:27 AM EDT Plan of Treatment Upcoming Encounters Date Type Department Care Team (Late st Contact Info) Description 08/06/2025 10:00 AM EDT Office Visit [facility] [address], [address] [place] [address] Vickie Awan, DNP [address] [facility], [address] [place] [address] [email or web address] Maintenance Due Date Last Done Comments DEPRESSION SCREENING 1959 SMOKING Hx and SMOKELESS TOBACCO SCREENING 11/05/1960 HEPATITIS C SCREENING 11/05/1965 ZOSTER VACCINES (2 of 3) 10/09/2012 08/14/2012 Adult Td,Tdap Booster 05/04/2020 05/04/2010 RSV VACCINE (1 - 1-dose 75+ series) 11/05/2022 HEMOGLOBIN A1C 08/22/2024 02/22/2024 INFLUENZA VACCINE (#1) 2024 , 12/31/2022, 01/30/2021, Additional history exists COVID-19 VACCINE (2 - 2024- season) 2024 08/03/2020 CREATININE LEVEL 02/21/2025 02/22/2024, 02/21/2024 POTASSIUM LEVEL 02/21/2025 02/22/2024, 02/21/2024 BLOOD PRESSURE 08/06/2025 02/05/2025 DIABETIC EYE EXAM 09/07/2025 09/07/2024, 08/30/2023 PNEUMOCOCCAL VACCINES (50+ years) Completed 03/13/2015, 04/02/2013 [...] Procedure Name Priority Date/Time Associated Diagnosis Comments LIPID PANEL Routine 02/05/2025 11:03 AM EDT Screening cholesterol level NT-PROBNP Routine 02/05/2025 11:03 AM EDT Bilateral leg edema HEMOGLOBIN A1C Routine 02/22/2024 5:47 AM EDT BASIC METABOLIC PANEL (BMP) Routine 02/22/2024 5:47 AM EDT from Last 3 Months or Most Recently Relevant to Health Maintenance Results * NT-proBNP (02/05/2025 11:03 AM EDT) NT-PROBNP 220 0 - 450 pg/mL [facility] Blood 02/05/2025 11:0 3 AM EDT 02/05/2025 11:09 AM EDT us Vickie Awan DNP LAB BLOOD BKR ORDERABLES F inal Result Performing Organization Address City/[facility] Co de Phone Number [address] [address] * (ABNORMAL) Lipid panel (02/05/2025 11:03 AM EDT) HDL 33 mg/dL [facility] Comment: Interpretation <40 mg/dL: Low HDL cholesterol (major risk factor for CHD) Greater than or equal to 60 mg/dL: High HDL cholesterol ( negative risk factor for CHD) HDL - cholesterol is affected by a number of factors, e.g. smoking, excerise, hormones, sex and age. CHOLESTEROL 113 0 - 240 mg/dL [facility] TRIGLYCERIDES 172(H) 30 - 160 mg/dL [facility] LDL 46(L) 50 - 129 mg/dL [facility] Comment: LDL levels in terms of risk for coronary heart disease: <100 mg/dL: Optimal 100-129 mg/dL: Near or above optimal 130-159 mg/dL: Borderline high 160-189 mg/dL: High >190 mg/dL: Very High CARDIAC RISK RATIO 3.4 3.4 - 5.0 C [facility] Blood 02/05/2025 11:0 3 AM EDT 02/05/2025 11:09 AM EDT us Vickie Awan DNP LAB BLOOD BKR ORDERABLES F inal Result Performing Organization Address City/[facility]/ZIP Co de Phone Number [address] [address] * (ABNORMAL) Hemoglobin A1c (02/22/2024 5:47 AM EDT) HEMOGLOBIN A1C 7.4(H) 4.3 - 5.8 % [facility] Blood 02/22/2024 5:47 AM EDT 02/22/2024 6:12 AM EDT Heydi A Kenyan DO LAB BLOOD BKR ORDERABLES Kati l Result Performing Organization Address [facility] Co de Phone Number [address] [address] * (ABNORMAL) Basic metabolic panel (02/22/2024 5:47 AM EDT) SODIUM 136 133 - 146 mmol/L [facility] CHLORIDE 103 96 - 108 mmol/L [facility] POTASSIUM 4.4 3.3 - 5.1 mmol/L [facility] CO2 22 21 - 35 mmol/L [facility] BUN 26(H) 6 - 19 mg/dL [facility] CREATININE 1.40 0.5 - 1.5 mg/dL [facility] GLUCOSE 149(H) 70 - 99 mg/dL [facility] CALCIUM 8.8 8.4 - 10.3 mg/dL [facility] EGFR 52(L) >59 mL/min/1.7 3m2 [facility] Comment:Estimated glomerular filtration rate calculated using the CKD-EPI refit equation. ANION GAP 15 10 - 20 mmol/L [facility] Blood 02/22/2024 5:47 AM EDT 02/22/2024 6:12 AM EDT us Heydi A Kenyan DO LAB BLOOD BKR ORDERABLES Kati l Result Performing Organization Address City/[facility]/ZIP Co de Phone Number [address] [address] from Last 3 Months or Most Recently Relevant to Health Maintenance Insurance [employer] SUPPLEMENT MEDICARE PART A & B [employer] SUPPLEMENT MEDICARE PART A & B [employer] SUPPLEMENT MEDICARE PART A & B [employer] MED[employer] SUPPLEMENT MEDICARE PART A & B [employer] MED[employer] SUPPLEMENT MEDICARE PART A & B [employer] MED[employer] SUPPLEMENT MEDICARE PART A & B [employer] MED[employer] SUPPLEMENT MEDICARE PART A & B [employer] MEDEX SUPPLEMENT MEDICARE PART A & [place] [address] [place] [address] CR[employer] MEDEX SUPPLEMENT MEDICARE PART A & B Advance Directives For more information, please contact: [phone] (9AM - 5PM [facility], Tuesday-Tuesday) Documents on File Type Date Recorded Patient Suede Cleaner Romel BARROW 01/01/2025 * Full Code (Latest Code Status on File) Date Activated Date Inactivated Comments 02/21/2024 3:10 PM Question Answer Comments Code Status Confirmed With: Patient Care Teams Bag Bleacher Relationship Specialty Start Date End Date Vickie Leon NP [facility] [place] [address] PCP - General Nurse Practitioner 02/22/24 Additional Source Comments The information contained in this document represents components of the legal health record. It is not the complete legal health record.[facility]
--- OUTSIDE RECORDS SUMMARY | 2025-03-04 14:33 | XMS_ITS | Encounter Summary ---
Author Organization [facility] Address [address] [place] [address] [place] [phone] Phone Care Team Providers Care Mds Rn Name Role Phone Vickie Leon NP Primary Care Provider [phone] Encounter Details Date Type Department Care Team (Late st Contact Info) Description 04/24/2024 Procedure Pass [facility] [address] [place] [address] Social History Tobacco Use Types Packs/Day Years [...] Description 08/06/2025 10:00 AM EDT Office Visit [facility] [address], [address] [place] [address] Vickie Awan, DILLON [address] [facility], [address] [place] [address] [email or web address] documented as of this encounter Visit Diagnoses Not on filedocumented in this encounter Care Teams Mds Rn Relationship Specialty Start Date End Date Vickie Leon NP [address] [place] [address] PCP - General Nurse Practitioner 02/22/24 documented as of this encounter Additional Source Comments The information contained in this document represents components of the legal health record. It is not the complete legal health record.[facility]
--- OUTSIDE RECORDS SUMMARY | 2025-03-04 14:33 | XMS_ITS | Encounter Summary ---
Author Organization [facility] Address [address] [facility] [address] [place] [address] Phone Care Team Providers Care Athletic Coordinator Name Role Phone Chiara Callaway Primary Care Provider [phone]- [phone] Vickie Leon NP Primary Care Provider [phone] Encounter Details Date Type Department Care Team (Late st Contact Info) Description 02/21/2024 Procedure Pass [facility] [address] [place] [address] Social History Tobacco Use Types Packs/Day Years [...] on file documented as of this encounter Functional Status * Calculated C-SSRS Risk Score (Lifetime/Recent) Answer Date of Assessment Author No Risk Indicated 02/21/2024 8:49 PM EDT Daniela Lieberman RN * [place] Suicide Severity Rating Scale (Screener/Recent Self-Report) Question Answer Date of Assessment Author 1. Wish to be (Past 1 Month) No 024 8:49 PM EDT Daniela Lieberman RN 2. Non-Specific Active Suici jung Thoughts (Past 1 Month) No 02/21/2024 8:49 PM EDT Diana Lieberman RN 6. Suicidal Behavior (Lifetime) No 8:49 PM EDT Daniela Lieberman RN documented as of this encounter Plan of Treatment Upcoming Encounters Date Type Department Care Team (Late st Contact Info) Description 08/06/2025 10:00 AM EDT Office Visit [facility] [address] [place] [address] [address]rd Floor, [address] [place] [address] Vickie Awan, DILLON [address] [place] [address], [address] [place] [phone] [email or web address] documented as of this encounter Visit Diagnoses Not on filedocumented in this encounter Care Teams Athletic Coordinator Relationship Specialty Start Date End Date Chiara Callaway PA [address] [place] [phone] PCP - General Physician Delicatessen Slicer 02/21/24 02/21/24 Vickie Leon NP [address] [place] [phone] PCP - General Nurse Practitioner 02/22/24 documented as of this encounter Additional Source Comments The information contained in this document represents components of the legal health record. It is not the complete legal health record.[facility]
== END 2025-03-04 11:57 | disposition home or self-care (01) ==
LOC: HO.HOS 11:24
DX: M11.262 Other chondrocalcinosis, left knee (principal); M00.9 Pyogenic arthritis, unspecified; W19.XXXA Unspecified fall, initial encounter
CPT/HCPCS: 99213

== ENCOUNTER → 2025-03-04 11:24 | Outpatient (BNVA) | payer MEDICARE, SELFPAY | DX: M11.262 Other chondrocalcinosis, left knee (principal); M00.9 Pyogenic arthritis, unspecified; Z98.890 Other specified postprocedural states; W19.XXXA Unspecified fall, initial encounter | CPT/HCPCS: 99212 ==